=== PATIENT | male | born 1955 | race Hispanic/Latino ===

== ENCOUNTER 2017-05-30 17:51 | Inpatient (IN) | payer BC ==
[2017-05-30 18:12] LABS: BASO # 0.1 K/uL (0.0-0.2); BASO % 0.7 % (0.0-2.0); EOS # 0.3 K/uL (0.0-0.7); EOS % 3.3 % (0.0-4.0); HEMOGLOBIN 15.6 g/dL (12.0-18.0); LYMPH # 1.9 K/uL (1.0-4.3); LYMPH % 20.2 % (20.0-40.0); MEAN CELL VOLUME 87.6 fL (80.0-94.0); MEAN CORPUSCULAR HEMOGLOBIN 29.9 pg (27.0-31.0); MEAN CORPUSCULAR HGB CONC 34.1 g/dL (33.0-37.0); MEAN PLATELET VOLUME 8.8 fL (7.2-11.7); MONO % 10.7 % (0.0-10.0); NEUT # 6.1 K/uL (1.8-7.0); NEUT % 65.1 % (50.0-75.0); NRBC % 0.1 % (0.0-2.0); RBC 5.22 Mil/uL (4.40-5.90); RED CELL DISTRIBUTION WIDTH 13.2 % (11.5-14.5); WHITE BLOOD COUNT 9.4 K/uL (4.8-10.8)
--- NOTE | 2017-05-30 18:27 | C.PDOC ---
History Of Present Illness 62-year-old male, PMHx includes DVT not on blood thinners, presents to the emergency department feeling short of breath. Patient flew back from [place] yesterday. Denies any chest pain, nausea/vomiting, fevers or cough. Time Seen by Provider: 05/30/17 18:05 Chief Complaint (Nursing): Shortness Of Breath Past Medical History Vital Signs: Last Vital Signs Temp 97.8 F 06/03/17 12:00 Pulse 78 06/03/17 10:00 Resp 12 06/03/17 10:00 BP 128/81 06/03/17 10:00 Pulse Ox 98 06/03/17 13:09 - Medical History PMH: Deep Vein Thrombosis Family History: States: Unknown Family Hx - Social History Hx Alcohol Use: No Hx Substance Use: No - Immunization History Hx Tetanus Toxoid Vaccination: No Hx Influenza Vaccination: No Hx Pneumococcal Vaccination: No Review Of Systems Constitutional: Negative for: Fever, Chills Cardiovascular: Negative for: Chest Pain, Palpitations, Light Headedness Respiratory: Positive for: Shortness of Breath. Negative for: Cough Gastrointestinal: Negative for: Vomiting Musculoskeletal: Negative for: Back Pain Skin: Negative for: Rash Neurological: Negative for: Weakness, Numbness, Headache, Dizziness Physical Exam - Physical Exam Appears: Non-toxic, No Acute Distress Skin: Normal Color, Warm, Dry, No Rash Head: Normacephalic Eye(s): bilateral: PERRL Nose: Normal, No Flaring Oral Mucosa: Moist Lips: Normal Appearing Neck: Normal ROM Chest: Symmetrical Cardiovascular: Rhythm Regular (Tachycardic), No Murmur Respiratory: No Decreased Breath Sounds, No Accessory Muscle Use, No Rales, No Rhonchi, No Wheezing, Other (Tachypneic) Extremity: Normal ROM, No Deformity, Swelling (right lower extremity) Pulses: Left Dorsalis Pedis: Normal, Right Dorsalis Pedis: Normal Neurological/Psych: Oriented x3, Normal Speech ED Course And Treatment - Laboratory Results Result Diagrams: 06/03/17 05:50 06/03/17 05:57 O2 Sat by Pulse Oximetry: 98 (RA) Pulse Ox Interpretation: Normal - CT Scan/US CTA chest Other Rad Studies (CT/US): Read By Radiologist, Radiology Report Reviewed CT/US Interpretation: EXAM: CT Angiography Chest With Intravenous Contrast. EXAM DATE/TIME: Exam ordered 05/30/2017 6:33 PM. CLINICAL HISTORY: 62 years old, male; Signs and symptoms; Shortness of breath; Additional info: SOB elevated dimer. h/o of dvt. TECHNIQUE: Axial computed tomographic angiography images of the chest with intravenous contrast using. pulmonary embolism protocol. All CT scans at this facility use one or more dose reduction. techniques, viz.: automated exposure control; ma/kV adjustment per patient size (including targeted. exams where dose is matched to indication; i.e. head); or iterative reconstruction technique. MIP reconstructed images were created and reviewed. Coronal and sagittal reformatted images were created and reviewed. CONTRAST: 100 mL of [id number] administered intravenously. COMPARISON: No relevant prior studies available. FINDINGS: Pulmonary arteries: Clot is noted in the right main pulmonary artery extending into first and second. generation branches of the upper lobe division and first, second and third generation divisions of the. branches serving the right middle lobe right lower lobe. On the left , clot in the left main pulmonary. artery and extends into first, second and third generation branches of the left upper lobe pulmonary. artery branch, first and second generation branches of the division serving the lingula and first,. second and third generation branches of the division serving the left lower lobe. There is a saddle. embolus. Aorta: No acute findings. No thoracic aortic aneurysm. Inferior vena cava: There is no reflux of contrast into the inferior vena cava. Lungs: Mosaic perfusion abnormality is noted in both lungs .there is a very small hiatal hernia. Pleural space: Unremarkable. No significant effusion. No pneumothorax. Heart: The right ventricular left ventricular ratio equals 1.6. No significant pericardial effusion. Bones/joints: Degenerative changes are noted of the dorsal spine. No acute fracture. No. dislocation. Soft tissues: Unremarkable. Lymph nodes: Unremarkable. No enlarged lymph nodes. IMPRESSION: 1. Acute pulmonary embolism with large clot burden. 2. Elevated RV/LV ratio indicating right ventricular strain. 3. Small hiatal hernia. 4. Mosaic perfusion abnormality. May be related to intrapulmonary shunting secondary to thrombosis. Thank you for allowing us to participate in the care of your patient. Dictated and Authenticated by: Madison Navarro MD. 05/30/2017 7:47 PM Eastern Time ([place] & [place] Critical Care Time - Critical Care Note Total Time (in mins): 60 Documented critical care: time excludes all time spent performing seperately billable procedures. Medical Decision Making Medical Decision Makin:22 - Discussed case with ICU Dr. Malcolm De Santiago. Patient has a submassive PE, discussed options for low dose, high dose and IV TPA. Information about low dose TPA was discussed with the patient, went through risks and benefits and at this time patient is declining TPA. 20:40- After beside discussion with Dr. Malcolm De Santiago patient consents to TPA Disposition - Disposition Disposition: HOSPITALIZED Disposition Time: 08:00 Condition: CRITICAL - Clinical Impression Clinical Impression: Pulmonary embolism - Scribe Statement The provider has reviewed the documentation as recorded by the Scribe (Alan Worley) All medical record entries made by the Scribe were at my direction and personally dictated by me. I have reviewed the chart and agree that the record accurately reflects my personal performance of the history, physical exam, medical decision making, and the department course for this patient. I have also personally directed, reviewed, and agree with the discharge instructions and disposition. Decision To Admit - Pt Status Changed To: Hospital Disposition Of: Inpatient - Admit Certification Admit to Inpatient:: After my assessment, the patient will require hospitalization for at least two midnights. This is because of the severity of symptoms shown, intensity of services needed, and/or the medical risk in this patient being treated as an outpatient. - InPatient: Physician Admission Certification: I certify that this patient requires 2 or more midnights of care for the following reason:: large pe - . Bed Request Type: ICU Admitting Physician: Daniel Sloan Patient Diagnosis: Pulmonary embolism
[2017-05-30 18:28] LABS: INR 1.1; PROTHROMBIN TIME 12.5 SECONDS (9.7-12.2)
[2017-05-30 18:30] LABS: ALB/GLOB RATIO 1.1 (1.0-2.1); ALBUMIN 4.2 g/dL (3.5-5.0); ALT/SGPT 36 U/L (21-72); AST/SGOT 30 U/L (17-59); BLOOD UREA NITROGEN 20 mg/dL (9-20); CALCIUM 8.6 mg/dl (8.6-10.4); GFR AFRICAN-AMERICAN > 60; GFR NON-AFRICAN AMERICAN > 60
[2017-05-30 18:49] LABS: B-TYPE NATRIURETIC PEPTIDE 605 pg/mL (0-900)
[2017-05-30] MEDS ORDERED: Iodixanol 320 MG/ML 100 ML BOTTLE IV ONE (18:54)
[2017-05-30] MEDS ORDERED: Heparin25000 units/250ml 1/2NS 25,000 UNITS/250 ML BAG IV PRN (18:59)
--- NOTE | 2017-05-30 19:47 | CT ---
EXAM: CT Angiography Chest With Intravenous Contrast EXAM DATE/TIME: Exam ordered 05/30/2017 6:33 PM CLINICAL HISTORY: 62 years old, male; Signs and symptoms; Shortness of breath; Additional info: SOB elevated dimer h/o of dvt TECHNIQUE: Axial computed tomographic angiography images of the chest with intravenous contrast using pulmonary embolism protocol. All CT scans at this facility use one or more dose reduction techniques, viz.: automated exposure control; ma/kV adjustment per patient size (including targeted exams where dose is matched to indication; i.e. head); or iterative reconstruction technique. MIP reconstructed images were created and reviewed. Coronal and sagittal reformatted images were created and reviewed. CONTRAST: 100 mL of [id number] administered intravenously. COMPARISON: No relevant prior studies available. FINDINGS: Pulmonary arteries: Clot is noted in the right main pulmonary artery extending into first and second generation branches of the upper lobe division and first, second and third generation divisions of the branches serving the right middle lobe right lower lobe. On the left , clot in the left main pulmonary artery and extends into first, second and third generation branches of the left upper lobe pulmonary artery branch, first and second generation branches of the division serving the lingula and first, second and third generation branches of the division serving the left lower lobe. There is a saddle embolus. Aorta: No acute findings. No thoracic aortic aneurysm. Inferior vena cava: There is no reflux of contrast into the inferior vena cava. Lungs: Mosaic perfusion abnormality is noted in both lungs .there is a very small hiatal hernia. Pleural space: Unremarkable. No significant effusion. No pneumothorax. Heart: The right ventricular left ventricular ratio equals 1.6. No significant pericardial effusion. Bones/joints: Degenerative changes are noted of the dorsal spine. No acute fracture. No dislocation. Soft tissues: Unremarkable. Lymph nodes: Unremarkable. No enlarged lymph nodes. IMPRESSION: 1. Acute pulmonary embolism with large clot burden 2. Elevated RV/LV ratio indicating right ventricular strain 3. Small hiatal hernia 4. Mosaic perfusion abnormality. May be related to intrapulmonary shunting secondary to thrombosis
[2017-05-30 19:56] LABS: URINE BACTERIA RARE (<OCC); URINE BILIRUBIN NEGATIVE (NEGATIVE); URINE BLOOD NEGATIVE (NEGATIVE); URINE CLARITY Clear (Clear); URINE COLOR Straw (YELLOW); URINE GLUCOSE (UA) NORMAL (Normal); URINE LEUKOCYTE ESTERASE NEG Leu/uL (Negative); URINE PROTEIN 1+ mg/dL (NEGATIVE); URINE UROBILINOGEN NORMAL mg/dL (0.2-1.0)
[2017-05-30] MEDS ORDERED: Sodium Chloride 0.9% 1,000 ML IV ONE (20:34)
[2017-05-30 20:44] LABS: ABG ALLEN TEST POS; ARTERIAL BLOOD GAS HCO3 23.7 mmol/L (21-28); ARTERIAL BLOOD GAS HEMOGLOBIN 15.8 g/dL (11.7-17.4); ARTERIAL BLOOD GAS O2 SAT 99.2 % (95-98); ARTERIAL BLOOD GAS PCO2 32 mm/Hg (35-45); ARTERIAL BLOOD GAS PH 7.44 (7.35-7.45); ARTERIAL BLOOD GAS PO2 121 mm/Hg (80-100); ARTERIAL BLOOD GAS TCO2 22.7 mmol/L (22-28)
--- NOTE | 2017-05-30 21:00 | CP.PCM.CON ---
History of Present Illness - History of Present Illness History of Present Illness: 62 y/o male with pmx of LE DVT (taken AC for 3 months) presents to [facility] with progressive SOB worsening upon exerction. Patient recently came back from [place] on flight. Patient notes he does not smoke, works on his feet ( walks ~3 miles whil working). Patient denies any exercise intolerance. Patient denies any family history of clot formation. PMx: DVT (seen at [place]) Psurg hx: denies Allergies: denies Social history: has an active work, denies smoking, denies any illicit drug use family history: reviewed and non-contributary Review of Systems - Review of Systems Review of Systems: see HPI Past Patient History - Past Social History Smoking Status: Never Smoked - PSYCHIATRIC Hx Substance Use: No - SURGICAL HISTORY Hx Surgeries: No - ANESTHESIA Hx Anesthesia: No Meds Allergies/Adverse Reactions: Allergies Allergy/AdvReac Type Severity Reaction Status Date / Time No Known Allergies Allergy Verified 05/30/17 17:58 - Medications Medications: Current Medications Heparin Sodium/Sodium Chloride (Heparin 06137 Units/250ml 1/2 Normal Saline) 25 ,000 units in 250 mls @ 14.696 mls/hr IV .Q17H1M PRN; Protocol; 18 UNITS/KG/HR PRN Reason: ADJUST RATE PER PROTOCOL Last Admin: 05/30/17 19:38 Dose: 14.696 mls/hr Sodium Chloride (Sodium Chloride 0.9%) 1,000 mls @ 1,000 mls/hr IV .Q1H ONE Stop: 05/30/17 21:33 Alteplase, Recombinant 10 mg/ (Sodium Chloride) 100 mls @ 300 mls/hr IV ONCE ONE Stop: 05/30/17 21:19 Sodium Chloride (Sodium Chloride 0.9%) 1,000 mls @ 100 mls/hr IV .Q10H KAVITHA Pantoprazole Sodium (Protonix Inj) 40 mg IVP Q12H KAVITHA Physical Exam - Constitutional Appears: Non-toxic, In Acute Distress - Head Exam Head Exam: ATRAUMATIC, NORMAL INSPECTION, NORMOCEPHALIC - Eye Exam Eye Exam: EOMI - Neck Exam Neck exam: Positive for: Normal Inspection - Respiratory Exam Respiratory Exam: Clear to Auscultation Bilateral, NORMAL BREATHING PATTERN - Cardiovascular Exam Cardiovascular Exam: Tachycardia, +S1, +S2 - GI/Abdominal Exam GI & Abdominal Exam: Normal Bowel Sounds - Extremities Exam Extremities exam: Positive for: normal capillary refill, pedal edema. Negative for: calf tenderness, joint swelling - Skin Additional comments: Tanned with sun burn Results - Vital Signs Recent Vital Signs: Last Vital Signs Temp 98.5 F 05/30/17 18:34 Pulse 124 H 05/30/17 18:57 Resp 18 05/30/17 18:57 BP 177/116 H 05/30/17 18:57 Pulse Ox 98 05/30/17 20:45 - Labs Result Diagrams: 05/30/17 18:09 05/30/17 18:09 Labs: Laboratory Results - last 24 hr 05/30/17 05/30/17 05/30/17 18:09 18:09 18:09 WBC 9.4 RBC 5.22 Hgb 15.6 Hct 45.7 MCV 87.6 MCH 29.9 MCHC 34.1 RDW 13.2 Plt Count 230 MPV 8.8 Neut % (Auto) 65.1 Lymph % (Auto) 20.2 [place] % (Auto) 10.7 H Eos % (Auto) 3.3 Baso % (Auto) 0.7 Neut # (Auto) 6.1 Lymph # (Auto) 1.9 [place] # (Auto) 1.0 H Eos # (Auto) 0.3 Baso # (Auto) 0.1 PT 12.5 H INR 1.1 APTT 27 D-Dimer, Quantitative 4358 H Puncture Site pCO2 pO2 HCO3 ABG pH ABG Total CO2 ABG O2 Saturation ABG Base Excess ABG Hemoglobin ABG Carboxyhemoglobin POC ABG HHb (Measured) ABG Methemoglobin Morales Test A-a O2 Difference Respiratory Index Hgb O2 Saturation Liter Flow FiO2 Sodium 142 Potassium 3.8 Chloride 103 Carbon Dioxide 24 Anion Gap 19 BUN 20 Creatinine 1.1 Est GFR ( Amer) > 60 Est GFR (Non-Af Amer) > 60 Random Glucose 103 Calcium 8.6 Total Bilirubin 0.6 AST 30 ALT 36 Alkaline Phosphatase 93 Troponin I 0.1620 H* NT-Pro-B Natriuret Pep 605 Total Protein 7.8 Albumin 4.2 Globulin 3.7 Albumin/Globulin Ratio 1.1 Urine Color Urine Clarity Urine pH Ur Specific [place] Urine Protein Urine Glucose (UA) Urine Ketones Urine Blood Urine Nitrate Urine Bilirubin Urine Urobilinogen Ur Leukocyte Esterase Urine WBC (Auto) Urine RBC (Auto) Urine Bacteria 05/30/17 05/30/17 19:39 20:40 WBC RBC Hgb Hct MCV MCH MCHC RDW Plt Count MPV Neut % (Auto) Lymph % (Auto) [place] % (Auto) Eos % (Auto) Baso % (Auto) Neut # (Auto) Lymph # (Auto) [place] # (Auto) Eos # (Auto) Baso # (Auto) PT INR APTT D-Dimer, Quantitative Puncture Site Rra pCO2 32 L pO2 121 H HCO3 23.7 ABG pH 7.44 ABG Total CO2 22.7 ABG O2 Saturation 99.2 H ABG Base Excess -1.5 ABG Hemoglobin 15.8 ABG Carboxyhemoglobin 1.3 POC ABG HHb (Measured) 0.8 ABG Methemoglobin 1.3 [place]ales Test Pos A-a O2 Difference 267.0 Respiratory Index 2.2 Hgb O2 Saturation 96.5 Liter Flow 10.0 FiO2 60.0 Sodium Potassium Chloride Carbon Dioxide Anion Gap BUN Creatinine Est GFR ( Amer) Est GFR (Non-Af Amer) Random Glucose Calcium Total Bilirubin AST ALT Alkaline Phosphatase Troponin I NT-Pro-B Natriuret Pep Total Protein Albumin Globulin Albumin/Globulin Ratio Urine Color Straw Urine Clarity Clear Urine pH 5.0 Ur Specific [place] 1.030 Urine Protein 1+ H Urine Glucose (UA) Normal Urine Ketones Negative Urine Blood Negative Urine Nitrate Negative Urine Bilirubin Negative Urine Urobilinogen Normal Ur Leukocyte Esterase Neg Urine WBC (Auto) 1 Urine RBC (Auto) 2 Urine Bacteria Rare - EKG Data Rate: Tachycardia Assessment & Plan - Assessment and Plan (Free Text) Assessment: Acute on chronic PE: multiple PE on both pulmonary arteries causing right heart strain c/w increase in trop and increase in pro-BNP. I offered full dose TPA ( clot breaker) and patient refused after knowing the risks and benefits. I had offered a low dose TPA ~50 mg and patient refused knowing the risks and benefits of possible ICH. I then offered patient the lowest dose of TPA (10 mg) Patient was informed that the risks of TPA as the same; however the probability of occuring is very low due to the amount given. -Hypoxic respiratory failure: with large A-a gradient, continue 100% NRB -check LE dopplers and offer vascular eval for retrievable IV filter -Patient denies any history of ulcers, denies any history bleeding, denies any recent surgery(neurological or general surgery), denies any history of retinal surgery or h/o retinal hemorrhage. -Risks benefits and alternatives explained. Patient was informed that PE can cause low BP, can cause respiratory failure leading to intubation and possible cardiac arrest/stand still. Patient verbalized understanding. Patient's was also at bedside during above management and verbalized understanding. Cc time 45 minutes including time spent on discussing risks, benefits and alternatives. -Patient also signed consent for possible blood transfusion (if indicated) -nursing and ER physician informed of above management. - Date & Time Date: 05/30/17 Time: 21:13
[2017-05-30] MEDS ORDERED: Labetalol 25mg/5ml Syringe IVP STA (21:23)
[2017-05-30] MEDS ORDERED: Labetalol 25mg/5ml Syringe ONE (21:32)
--- NOTE | 2017-05-30 21:32 | CP.PCM.HP ---
<Nova BarreraCarlos - Last Filed: 05/30/17 23:27> History of Present Illness - History of Present Illness History of Present Illness: CC: Shortness of breath HPI: 62 year old male with PMHx of L DVT in 2013 presents to the ED today for shortness of breath. 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 This has never happened to him in the past. Patient works out regularly and has not been having any shortness of breath during exercise. Patient sleeps slightly elevated at night, but only uses one pillow. Patient has had no chest pain or leg pain, but his noticed that his right leg has been slightly swollen for the past month. Patient says his leg swelling comes and goes and he attributed it to being on his feet all day at work. Yesterday, patient flew back from vacation in [place]. He had no pain or trouble breathing during or after the flight. Today patient was cleaning his bathroom with some chemicals and started to feel dizzy like the room was spinning. He also started to feel very short of breath. He walked upstairs from the bathroom to tell his and sat down to try to calm his breathing. His called 911 and by the time EMS arrived, patient said he felt his breathing had improved. Patient denies being sick recently. Patient has had no trauma. Patient denies any chest pain, abdominal pain, nausea, vomiting, constipation, or diarrhea. 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 absent: Chest Pain, Palpitations - Respiratory Respiratory: Dyspnea, Dyspnea on Exertion. absent: Wheezing, Stridor - Gastrointestinal Gastrointestinal: absent: Abdominal Pain, Constipation, Diarrhea, Melena, Nausea , Vomiting - Musculoskeletal Musculoskeletal: absent: Muscle Weakness, Numbness, Tingling - Integumentary Integumentary: Swelling. absent: Rash - Hematologic/Lymphatic Hematologic: absent: Easy Bleeding, Easy Bruising Past Patient History - Past Social History Smoking Status: Never Smoked - PSYCHIATRIC Hx Substance Use: No - SURGICAL HISTORY Hx Surgeries: No - ANESTHESIA Hx Anesthesia: No Meds Allergies/Adverse Reactions: Allergies Allergy/AdvReac Type Severity Reaction Status Date / Time No Known Allergies Allergy Verified 05/30/17 17:58 Physical Exam - Constitutional Appears: Non-toxic, No Acute Distress - Head Exam Head Exam: ATRAUMATIC, NORMAL INSPECTION, NORMOCEPHALIC - Eye Exam Eye Exam: EOMI, Normal appearance - ENT Exam ENT Exam: Mucous Membranes Moist - Respiratory Exam Respiratory Exam: Clear to Auscultation Bilateral. absent: Rales, Rhonchi, Wheezes, Stridor - Cardiovascular Exam Cardiovascular Exam: Tachycardia, REGULAR RHYTHM, +S1, +S2 - GI/Abdominal Exam GI & Abdominal Exam: Normal Bowel Sounds, Soft. absent: Distended, Firm, Tenderness - Extremities Exam Extremities exam: Positive for: pedal edema. Negative for: tenderness Additional comments: R LE edema - Back Exam Back exam: NORMAL INSPECTION - Neurological Exam Neurological exam: Alert, Oriented x3 - Psychiatric Exam Psychiatric exam: Normal Affect, Normal Mood - Skin Skin Exam: Intact, Normal Color, Warm Additional comments: sunburn with peeling skin on chest Results - Vital Signs Recent Vital Signs: Last Vital Signs Temp 98.5 F 05/30/17 18:34 Pulse 124 H 05/30/17 18:57 Resp 18 18 18:57 BP 177/116 H 05/30/17 18:57 Pulse Ox 98 05/30/17 20:45 - Labs Result Diagrams: 05/30/17 18:09 05/30/17 18:09 Labs: Laboratory Results - last 24 hr 05/30/171818 18 18:09 18:09 18:09 WBC 9.4 RBC 5.22 Hgb 15.6 Hct 45.7 MCV 87.6 MCH 29.9 MCHC 34.1 RDW 13.2 Plt Count 230 MPV 8.8 Neut % (Auto) 65.1 Lymph % (Auto) 20.2 [place] % (Auto) 10.7 H Eos % (Auto) 3.3 Baso % (Auto) 0.7 Neut # (Auto) 6.1 Lymph # (Auto) 1.9 [place] # (Auto) 1.0 H Eos # (Auto) 0.3 Baso # (Auto) 0.1 PT 12.5 H INR 1.1 APTT 27 D-Dimer, Quantitative 4358 H Puncture Site pCO2 pO2 HCO3 ABG pH ABG Total CO2 ABG O2 Saturation ABG Base Excess ABG Hemoglobin ABG Carboxyhemoglobin POC ABG HHb (Measured) ABG Methemoglobin Morales Test A-a O2 Difference Respiratory Index Hgb O2 Saturation Liter Flow FiO2 Sodium 142 Potassium 3.8 Chloride 103 Carbon Dioxide 24 Anion Gap 19 BUN 20 Creatinine 1.1 Est GFR ( Amer) > 60 Est GFR (Non-Af Amer) > 60 Random Glucose 103 Calcium 8.6 Total Bilirubin 0.6 AST 30 ALT 36 Alkaline Phosphatase 93 Troponin I 0.1620 H* NT-Pro-B Natriuret Pep 605 Total Protein 7.8 Albumin 4.2 Globulin 3.7 Albumin/Globulin Ratio 1.1 Urine Color Urine Clarity Urine pH Ur Specific [place] Urine Protein Urine Glucose (UA) Urine Ketones Urine Blood Urine Nitrate Urine Bilirubin Urine Urobilinogen Ur Leukocyte Esterase Urine WBC (Auto) Urine RBC (Auto) Urine Bacteria Blood Type 05/30/17 05/30/17 05/30/17 19:39 20:40 20:40 WBC RBC Hgb Hct MCV MCH MCHC RDW Plt Count MPV Neut % (Auto) Lymph % (Auto) [place] % (Auto) Eos % (Auto) Baso % (Auto) Neut # (Auto) Lymph # (Auto) [place] # (Auto) Eos # (Auto) Baso # (Auto) PT INR APTT D-Dimer, Quantitative Puncture Site Rra pCO2 32 L pO2 121 H HCO3 23.7 ABG pH 7.44 ABG Total CO2 22.7 ABG O2 Saturation 99.2 H ABG Base Excess -1.5 ABG Hemoglobin 15.8 ABG Carboxyhemoglobin 1.3 POC ABG HHb (Measured) 0.8 ABG Methemoglobin 1.3 Morales Test Pos A-a O2 Difference 267.0 Respiratory Index 2.2 Hgb O2 Saturation 96.5 Liter Flow 10.0 FiO2 60.0 Sodium Potassium Chloride Carbon Dioxide Anion Gap BUN Creatinine Est GFR ( Amer) Est GFR (Non-Af Amer) Random Glucose Calcium Total Bilirubin AST ALT Alkaline Phosphatase Troponin I NT-Pro-B Natriuret Pep Total Protein Albumin Globulin Albumin/Globulin Ratio Urine Color Straw Urine Clarity Clear Urine pH 5.0 Ur Specific [place] 1.030 Urine Protein 1+ H Urine Glucose (UA) Normal Urine Ketones Negative Urine Blood Negative Urine Nitrate Negative Urine Bilirubin Negative Urine Urobilinogen Normal Ur Leukocyte Esterase Neg Urine WBC (Auto) 1 Urine RBC (Auto) 2 Urine Bacteria Rare Blood Type AB POSITIVE Assessment & Plan - Assessment and Plan (Free Text) Assessment: 1. Acute on Chronic PE -admit to ICU -D-dimer 4358 -CTA: acute pulmonary embolism with large clot burder, elevated RV/LV ratio indicating right ventricular strain, small hiatal hernia, mosaic perfusion abnormality, may be related to intrapulmonary shunting secondary to thrombosis. -f/u LE dopplers -f/u Protein C, S, and factor V leiden -coags: PT 12.5, INR 1.1, PTT 27 -low dose TPA 10mg given (patient refused higher does) -Heparin drip started in ED 2. Hypoxic Respiratory failure with large A-a gradient -100% nonrebreather -ABG: pH 7.44, pCO2 32, p02 121, HCO3 23.7 3. NSTEMI -Trop I .1620 -EKG sinus tach at 120bpm -f/u ECHO 4. Prophylaxis Heparin drip Protonix 40mg ivp q12h <Daniel Sloan - Last Filed: 05/31/17 06:29> Results - Vital Signs Recent Vital Signs: Last Vital Signs Temp 98.6 F 05/30/17 22:25 Pulse 92 H 05/31/17 05:00 Resp 17 05/31/17 05:00 BP 127/88 05/31/17 04:52 Pulse Ox 95 05/31/17 05:00 - Labs Result Diagrams: 05/30/17 18:09 05/30/17 18:09 Labs: Laboratory Results - last 24 hr 05/30/17 05/30/17 05/30/17 18:09 18:09 18:09 WBC 9.4 RBC 5.22 Hgb 15.6 Hct 45.7 MCV 87.6 MCH 29.9 MCHC 34.1 RDW 13.2 Plt Count 230 MPV 8.8 Neut % (Auto) 65.1 Lymph % (Auto) 20.2 [place] % (Auto) 10.7 H Eos % (Auto) 3.3 Baso % (Auto) 0.7 Neut # (Auto) 6.1 Lymph # (Auto) 1.9 [place] # (Auto) 1.0 H Eos # (Auto) 0.3 Baso # (Auto) 0.1 PT 12.5 H INR 1.1 APTT 27 D-Dimer, Quantitative 4358 H Puncture Site pCO2 pO2 HCO3 ABG pH ABG Total CO2 ABG O2 Saturation ABG Base Excess ABG Hemoglobin ABG Carboxyhemoglobin POC ABG HHb (Measured) ABG Methemoglobin [place]ales Test A-a O2 Difference Respiratory Index Hgb O2 Saturation Liter Flow FiO2 Sodium 142 Potassium 3.8 Chloride 103 Carbon Dioxide 24 Anion Gap 19 BUN 20 Creatinine 1.1 Est GFR ( Amer) > 60 Est GFR (Non-Af Amer) > 60 POC Glucose (mg/dL) Random Glucose 103 Calcium 8.6 Total Bilirubin 0.6 AST 30 ALT 36 Alkaline Phosphatase 93 Troponin I 0.1620 H* NT-Pro-B Natriuret Pep 605 Total Protein 7.8 Albumin 4.2 Globulin 3.7 Albumin/Globulin Ratio 1.1 Urine Color Urine Clarity Urine pH Ur Specific [place] Urine Protein Urine Glucose (UA) Urine Ketones Urine Blood Urine Nitrate Urine Bilirubin Urine Urobilinogen Ur Leukocyte Esterase Urine WBC (Auto) Urine RBC (Auto) Urine Bacteria Urine Opiates Screen Urine Methadone Screen Ur Barbiturates Screen Ur Phencyclidine Scrn Ur Amphetamines Screen U Benzodiazepines Scrn U Oth Cocaine Metabols U Cannabinoids Screen Blood Type Antibody Screen 05/30/17 05/30/17 05/30/17 19:39 20:40 20:40 WBC RBC Hgb Hct MCV MCH MCHC RDW Plt Count MPV Neut % (Auto) Lymph % (Auto) [place] % (Auto) Eos % (Auto) Baso % (Auto) Neut # (Auto) Lymph # (Auto) [place] # (Auto) Eos # (Auto) Baso # (Auto) PT INR APTT D-Dimer, Quantitative Puncture Site Rra pCO2 32 L pO2 121 H HCO3 23.7 ABG pH 7.44 ABG Total CO2 22.7 ABG O2 Saturation 99.2 H ABG Base Excess -1.5 ABG Hemoglobin 15.8 ABG Carboxyhemoglobin 1.3 POC ABG HHb (Measured) 0.8 ABG Methemoglobin 1.3 [place]ales Test Pos A-a O2 Difference 267.0 Respiratory Index 2.2 Hgb O2 Saturation 96.5 Liter Flow 10.0 FiO2 60.0 Sodium Potassium Chloride Carbon Dioxide Anion Gap BUN Creatinine Est GFR ( Amer) Est GFR (Non-Af Amer) POC Glucose (mg/dL) Random Glucose Calcium Total Bilirubin AST ALT Alkaline Phosphatase Troponin I NT-Pro-B Natriuret Pep Total Protein Albumin Globulin Albumin/Globulin Ratio Urine Color Straw Urine Clarity Clear Urine pH 5.0 Ur Specific [place] 1.030 Urine Protein 1+ H Urine Glucose (UA) Normal Urine Ketones Negative Urine Blood Negative Urine Nitrate Negative Urine Bilirubin Negative Urine Urobilinogen Normal Ur Leukocyte Esterase Neg Urine WBC (Auto) 1 Urine RBC (Auto) 2 Urine Bacteria Rare Urine Opiates Screen Urine Methadone Screen Ur Barbiturates Screen Ur Phencyclidine Scrn Ur Amphetamines Screen U Benzodiazepines Scrn U Oth Cocaine Metabols U Cannabinoids Screen Blood Type AB POSITIVE Antibody Screen Negative 05/30/17 05/30/17 05/30/17 21:48 22:46 23:42 WBC RBC Hgb Hct MCV MCH MCHC RDW Plt Count MPV Neut % (Auto) Lymph % (Auto) [place] % (Auto) Eos % (Auto) Baso % (Auto) Neut # (Auto) Lymph # (Auto) [place] # (Auto) Eos # (Auto) Baso # (Auto) PT INR APTT D-Dimer, Quantitative Puncture Site pCO2 pO2 HCO3 ABG pH ABG Total CO2 ABG O2 Saturation ABG Base Excess ABG Hemoglobin ABG Carboxyhemoglobin POC ABG HHb (Measured) ABG Methemoglobin [place] Test A-a O2 Difference Respiratory Index Hgb O2 Saturation Liter Flow FiO2 Sodium Potassium Chloride Carbon Dioxide Anion Gap BUN Creatinine Est GFR ( Amer) Est GFR (Non-Af Amer) POC Glucose (mg/dL) 115 H 110 Random Glucose Calcium Total Bilirubin AST ALT Alkaline Phosphatase Troponin I NT-Pro-B Natriuret Pep Total Protein Albumin Globulin Albumin/Globulin Ratio Urine Color Urine Clarity Urine pH Ur Specific [place] Urine Protein Urine Glucose (UA) Urine Ketones Urine Blood Urine Nitrate Urine Bilirubin Urine Urobilinogen Ur Leukocyte Esterase Urine WBC (Auto) Urine RBC (Auto) Urine Bacteria Urine Opiates Screen Negative Urine Methadone Screen Negative Ur Barbiturates Screen Negative Ur Phencyclidine Scrn Negative Ur Amphetamines Screen Negative U Benzodiazepines Scrn Negative U Oth Cocaine Metabols Negative U Cannabinoids Screen Negative Blood Type Antibody Screen 05/31/17 01:00 WBC RBC Hgb Hct MCV MCH MCHC RDW Plt Count MPV Neut % (Auto) Lymph % (Auto) [place] % (Auto) Eos % (Auto) Baso % (Auto) Neut # (Auto) Lymph # (Auto) [place] # (Auto) Eos # (Auto) Baso # (Auto) PT INR APTT 26 D-Dimer, Quantitative Puncture Site pCO2 pO2 HCO3 ABG pH ABG Total CO2 ABG O2 Saturation ABG Base Excess ABG Hemoglobin ABG Carboxyhemoglobin POC ABG HHb (Measured) ABG Methemoglobin [place] Test A-a O2 Difference Respiratory Index Hgb O2 Saturation Liter Flow FiO2 Sodium Potassium Chloride Carbon Dioxide Anion Gap BUN Creatinine Est GFR ( Amer) Est GFR (Non-Af Amer) POC Glucose (mg/dL) Random Glucose Calcium Total Bilirubin AST ALT Alkaline Phosphatase Troponin I NT-Pro-B Natriuret Pep Total Protein Albumin Globulin Albumin/Globulin Ratio Urine Color Urine Clarity Urine pH Ur Specific [place] Urine Protein Urine Glucose (UA) Urine Ketones Urine Blood Urine Nitrate Urine Bilirubin Urine Urobilinogen Ur Leukocyte Esterase Urine WBC (Auto) Urine RBC (Auto) Urine Bacteria Urine Opiates Screen Urine Methadone Screen Ur Barbiturates Screen Ur Phencyclidine Scrn Ur Amphetamines Screen U Benzodiazepines Scrn U Oth Cocaine Metabols U Cannabinoids Screen Blood Type Antibody Screen Assessment & Plan - Date & Time Date: 05/31/17 (I have seen and examined the patient. I agree with the findings and plan of care as documented by Dr. Barrera. Patient with acute Saddle embolism. NSTEMI. Received TPA. Admit to ICU for further management. Oxygen as needed. ROMIx3 with EKG. Investigate hypercoagulable states. Monitor for acute changes.) Time: 06:28 Attending/Attestation - Attestation I have personally seen and examined this patient.: Yes I have fully participated in the care of the patient.: Yes I have reviewed all pertinent clinical information: Yes
[2017-05-30 22:09] LABS: BARBITURATES, UR NEGATIVE (NEGATIVE); BENZODIAZEPINES, UR NEGATIVE (NEGATIVE); OPIATES, UR NEGATIVE (NEGATIVE); PHENCYCLIDINE, UR NEGATIVE (NEGATIVE)
[2017-05-30] MEDS: Sodium Chloride 0.9% 1,000 ML IV SCH (22:34)
[2017-05-31] MEDS: Heparin25000 units/250ml 1/2NS 25,000 UNITS/250 ML BAG IV PRN ×2 (01:47→15:02)
[2017-05-31] MEDS: Sodium Chloride 0.9% 1,000 ML IV SCH ×3 (06:09→18:24)
[2017-05-31 06:31] LABS: BASO # 0.1 K/uL (0.0-0.2); BASO % 0.7 % (0.0-2.0); EOS # 0.1 K/uL (0.0-0.7); EOS % 0.8 % (0.0-4.0); HEMOGLOBIN 13.8 g/dL (12.0-18.0); LYMPH % 17.6 % (20.0-40.0); MEAN CELL VOLUME 87.5 fL (80.0-94.0); MEAN CORPUSCULAR HEMOGLOBIN 29.4 pg (27.0-31.0); MEAN CORPUSCULAR HGB CONC 33.6 g/dL (33.0-37.0); MEAN PLATELET VOLUME 8.4 fL (7.2-11.7); MONO # 0.9 K/uL (0.0-0.8); MONO % 8.2 % (0.0-10.0); NEUT # 8.1 K/uL (1.8-7.0); NEUT % 72.7 % (50.0-75.0); RBC 4.7 Mil/uL (4.40-5.90); RED CELL DISTRIBUTION WIDTH 13.4 % (11.5-14.5); WHITE BLOOD COUNT 11.2 K/uL (4.8-10.8)
[2017-05-31 06:43] LABS: ALBUMIN 3.4 g/dL (3.5-5.0); ALT/SGPT 34 U/L (21-72); AST/SGOT 34 U/L (17-59); BLOOD UREA NITROGEN 20 mg/dL (9-20); CALCIUM 8.7 mg/dl (8.6-10.4); GFR AFRICAN-AMERICAN > 60; GFR NON-AFRICAN AMERICAN > 60
--- NOTE | 2017-05-31 08:34 | RAD ---
HISTORY: Shortness of breath COMPARISON: No prior. FINDINGS: LUNGS: The lungs are clear. PLEURA: No significant pleural effusion identified, no pneumothorax apparent. CARDIOVASCULAR: There is mild cardiomegaly. OSSEOUS STRUCTURES: No significant abnormalities. VISUALIZED UPPER ABDOMEN: Normal. OTHER FINDINGS: None. IMPRESSION: No active pulmonary disease.
--- NOTE | 2017-05-31 08:54 | CP.PCM.PN ---
Subjective - Date & Time of Evaluation Date of Evaluation: 05/31/17 Time of Evaluation: 08:15 - Subjective Subjective: Patient currently AAO x 3, calm and not in acute distress. He reports breathing is far better now. He has not tried to move around. Yesterday he was found to have an large saddle PE. He was acutely short of breath, positive troponins, and also reporting palpitations. He had low SpO2 coming in. He was seen by ICU team and it was recommended that he have larger doses of TPA , however the patient after prolonged discussion with ICU did not want this and only had 10 of TPA given. He remains on a heparin ggt at this time. He is pending an echo and venous doppler at this time. On the telemonitor he did have some tachycardia when he came in. He also had low SpO2. Currently his telemetry is 93 to 95 HR and sinus. The SpO2 in the 95% range with nasal cannula. Objective - Vital Signs/Intake and Output Vital Signs (last 24 hours): Temp Pulse Resp BP Pulse Ox 98.6 F 93 H 11 L 145/95 H 94 L 05/30/17 22:25 05/31/17 08:22 05/31/17 08:22 05/31/17 08:22 05/31/17 08:22 Intake and Output: 05/31/17 05/31/17 06:59 18:59 Intake Total 1013.5 597.4 Output Total 700 200 Balance 313.5 397.4 - Medications Medications: Current Medications Sodium Chloride (Sodium Chloride 0.9%) 1,000 mls @ 100 mls/hr IV .Q10H [facility] Last Admin: 05/31/17 08:22 Dose: 100 mls/hr Heparin Sodium/Sodium Chloride (Heparin 17604 Units/250ml 1/2 Normal Saline) 25 ,000 units in 250 mls @ 18.711 mls/hr IV .[id number] PRN; Protocol; 22 UNITS/KG/HR PRN Reason: ADJUST RATE PER PROTOCOL Last Admin: 05/31/17 01:47 Dose: 22 units/kg/hr, 18.711 mls/hr Pantoprazole Sodium (Protonix Inj) 40 mg IVP Q12H [facility] Last Admin: 05/30/17 21:15 Dose: 40 mg - Labs Labs: 05/31/17 06:21 05/31/17 06:21 PT 12.5 SECONDS (9.7-12.2) H 05/30/17 18:09 INR 1.1 05/30/17 18:09 APTT 77 SECONDS (21-34) H D 05/31/17 06:21 - Constitutional Appears: Non-toxic, No Acute Distress - Head Exam Head Exam: NORMAL INSPECTION, NORMOCEPHALIC - Eye Exam Eye Exam: EOMI, Normal appearance - ENT Exam ENT Exam: Mucous Membranes Moist - Neck Exam Additional comments: Some minimal JVD seen - Respiratory Exam Respiratory Exam: Clear to Ausculation Bilateral, NORMAL BREATHING PATTERN - Cardiovascular Exam Cardiovascular Exam: REGULAR RHYTHM. absent: Diastolic murmur Additional comments: at this time sounds RR. I did not hear any mumurs at this time. - GI/Abdominal Exam GI & Abdominal Exam: absent: Soft, Tenderness, Normal Bowel Sounds - Extremities Exam Extremities Exam: absent: Pedal Edema Additional comments: I did NOT press on the calf area. We don't have dopplers yet. - Neurological Exam Neurological Exam: Alert, Awake, Oriented x3 Neuro motor strength exam: Left Upper Extremity: 5, Right Upper Extremity: 5, Left Lower Extremity: 5, Right Lower Extremity: 5 - Psychiatric Exam Psychiatric exam: Normal Affect, Normal Mood - Skin Skin Exam: Normal Color, Warm Assessment and Plan - Assessment and Plan (Free Text) Assessment: Assessment: 1. Acute on Chronic PE 05/31: Patient overnight did get TPA, however it was a very small dose. The patient did not agree with the recomendations of ICU staff. I spoke with the patient extensively this morning. I also hoa out a picture to help explain to him what was happening. Maybe the patient could benefit from a direct thrombolysis of this clot by interventional cardiology. He remains on a heparin ggt at this time. We are also pedning echo as well D-dimer 4358 CTA: acute pulmonary embolism with large clot burder, elevated RV/LV ratio indicating right ventricular strain, small hiatal hernia, mosaic perfusion abnormality, may be related to intrapulmonary shunting secondary to thrombosis. Pending LE dopplers Pending Protein C, S, and factor V leiden Low dose TPA 10mg given (patient refused higher does) 2. Hypoxic Respiratory failure with large A-a gradient 05/31: On nasal cannula now. SpO2 still on the low 90s side. -ABG: pH 7.44, pCO2 32, p02 121, HCO3 23.7 3. NSTEMI, right heart strain. 05/31: Troponin climbed to 1.57, heparin ggt. Needs cardiology evaluation Trop I .1620 -EKG sinus tach at 120bpm -f/u ECHO 4. Prophylaxis Heparin drip Protonix 40mg ivp q12h
--- NOTE | 2017-05-31 11:33 | CP.CCUPN ---
<Mary Duff - Last Filed: 05/31/17 14:29> CCU Subjective - Physician Review Subjective (Free Text): 05/31/17 11:30 Patient seen and examined at bedside. Per nursing no acute events overnight. Patient states that he is breathing comfortably. Patient s/p Tpa 10mg x 1, currently on heparin drip. Currently offers no complaints. Denies headaches, dizziness, cp, palpitations, sob, abdominal pain, urinary symptoms. CCU Objective - Vital Signs / Intake & Output Vital Signs (Last 4 hours): Vital Signs Pulse Resp BP Pulse Ox 05/31/17 11:22 89 20 142/97 H 92 L 05/31/17 11:15 84 19 92 L 05/31/17 11:00 87 20 93 L 05/31/17 10:52 89 17 154/94 H 92 L 05/31/17 10:45 91 H 21 91 L 05/31/17 10:30 91 H 18 92 L 05/31/17 10:22 95 H 17 141/98 H 93 L 05/31/17 10:15 96 H 22 93 L 05/31/17 10:00 90 19 91 L 05/31/17 09:52 149/89 05/31/17 09:37 154/94 H 05/31/17 09:30 93 H 14 93 L 05/31/17 09:22 98 H 14 154/100 H 93 L 05/31/17 09:15 93 H 16 94 L 05/31/17 09:10 95 H 12 150/109 H 96 05/31/17 09:00 95 H 21 94 L 05/31/17 08:52 97 H 11 L 155/103 H 94 L 05/31/17 08:30 94 H 16 95 05/31/17 08:22 93 H 11 L 145/95 H 94 L 05/31/17 08:00 91 H 18 92 L 05/31/17 07:52 96 H 14 150/92 H 94 L Intake and Output (Last 8hrs): Intake & Output 05/30/17 05/31/17 05/31/17 22:59 06:59 14:59 Intake Total 1013.5 716.1 Output Total 700 200 Balance 313.5 516.1 Weight 81.647 kg 85.049 kg Intake: Intake, IV Amount 893.5 356.1 Right Antecubital 800 300 Rt AC-y port 93.5 56.1 Oral 120 360 Output: Urine 700 200 Urine, Voided 700 200 Other: Voiding Method Urinal # Bowel Movements 0 - Physical Exam Head: Positive for: Atraumatic, Normocephalic Pupils: Positive for: PERRL Extroacular Muscles: Positive for: EOMI Conjunctiva: Positive for: Normal Mouth: Positive for: Moist Mucous Membranes Neck: Positive for: Normal Range of Motion, JVD (mild ) Respiratory/Chest: Positive for: Clear to Auscultation, Good Air Exchange, Other (O2 sats 91-94 on 1L NC). Negative for: Respiratory Distress Cardiovascular: Positive for: Regular Rate and Rhythm, Normal S1, S2 Abdomen: Positive for: Normal Bowel Sounds. Negative for: Tenderness Lower Extremity: Positive for: Edema (Right sided lower extremity pitting edema ), NORMAL PULSES Neurological: Positive for: CN II-XII Intact Skin: Positive for: Warm, Dry, Normal Color Psychiatric: Positive for: Alert, Oriented x 3 - Medications Active Medications: Active Medications Generic Name Dose Route Start Last Admin Trade Name Freq PRN Reason Stop Dose Admin Sodium Chloride 1,000 mls @ 100 mls/hr 05/30/17 21:00 05/31/17 08:22 Sodium Chloride 0.9% IV 100 mls/hr .Q10H KAVITHA Administration Heparin Sodium/Sodium Chloride 25,000 units in 250 mls @ 18.711 mls/hr 01:36 05/31/17 01:47 Heparin 04838 Units/250ml 1/2 Normal Saline IV 22 units/kg/hr .[id number] PRN 18.711 mls/hr ADJUST RATE PER PROTOCOL Administration Protocol 22 UNITS/KG/HR Pantoprazole Sodium 40 mg 05/30/17 21:00 05/31/17 11:24 Protonix Inj IVP 40 mg Q12H KAVITHA Administration - Patient Studies Lab Studies: Lab Studies 05/31/17 05/31/17 05/31/17 Range/Units 06:21 06:21 06:21 WBC 11.2 H (4.8-10.8) K/uL RBC 4.70 (4.40-5.90) Mil/uL Hgb 13.8 (12.0-18.0) g/dL Hct 41.1 (35.0-51.0) % MCV 87.5 (80.0-94.0) fL MCH 29.4 (27.0-31.0) pg MCHC 33.6 (33.0-37.0) g/dL RDW 13.4 (11.5-14.5) % Plt Count 188 (130-400) K/uL MPV 8.4 (7.2-11.7) fL Neut % (Auto) 72.7 (50.0-75.0) % Lymph % (Auto) 17.6 L (20.0-40.0) % Loving % (Auto) 8.2 (0.0-10.0) % Eos % (Auto) 0.8 (0.0-4.0) % Baso % (Auto) 0.7 (0.0-2.0) % Neut # (Auto) 8.1 H (1.8-7.0) K/uL Lymph # (Auto) 2.0 (1.0-4.3) K/uL Loving # (Auto) 0.9 H (0.0-0.8) K/uL Eos # (Auto) 0.1 (0.0-0.7) K/uL Baso # (Auto) 0.1 (0.0-0.2) K/uL PT (9.7-12.2) SECONDS INR APTT 77 H D (21-34) SECONDS D-Dimer, Quantitative (0-243) ng/mlDDU Puncture Site pCO2 (35-45) mm/Hg pO2 (80-100) mm/Hg HCO3 (21-28) mmol/L ABG pH (7.35-7.45) ABG Total CO2 (22-28) mmol/L ABG O2 Saturation (95-98) % ABG Base Excess (-2.0-3.0) mmol/L ABG Hemoglobin (11.7-17.4) g/dL ABG Carboxyhemoglobin (0.5-1.5) % POC ABG HHb (Measured) (0.0-5.0) % ABG Methemoglobin (0.0-3.0) % Morales Test A-a O2 Difference mm/Hg Respiratory Index Hgb O2 Saturation (95.0-98.0) % Liter Flow FiO2 % Sodium 141 (132-148) mmol/L Potassium 4.0 (3.6-5.2) mmol/L Chloride 107 (98-107) mmol/L Carbon Dioxide 24 (22-30) mmol/L Anion Gap 14 (10-20) BUN 20 (9-20) mg/dL Creatinine 0.8 (0.8-1.5) mg/dL Est GFR ( Amer) > 60 Est GFR (Non-Af Amer) > 60 POC Glucose (mg/dL) (65-110) mg/dL Random Glucose 101 (75-110) mg/dL Calcium 8.7 (8.6-10.4) mg/dl Phosphorus 4.1 (2.5-4.5) mg/dL Magnesium 1.9 (1.6-2.3) mg/dL Total Bilirubin 0.7 (0.2-1.3) mg/dL AST 34 (17-59) U/L ALT 34 (21-72) U/L Alkaline Phosphatase 85 (38-126) U/L Troponin I 1.5700 H* (0.00-0.120) ng/mL NT-Pro-B Natriuret Pep (0-900) pg/mL Total Protein 6.9 (6.3-8.3) g/dL Albumin 3.4 L (3.5-5.0) g/dL Globulin 3.4 (2.2-3.9) gm/dL Albumin/Globulin Ratio 1.0 (1.0-2.1) Urine Color (YELLOW) Urine Clarity (Clear) Urine pH (5.0-8.0) Ur Specific [place] (1.003-1.030) Urine Protein (NEGATIVE) mg/dL Urine Glucose (UA) (Normal) mg/dL Urine Ketones (NEGATIVE) mg/dL Urine Blood (NEGATIVE) Urine Nitrate (NEGATIVE) Urine Bilirubin (NEGATIVE) Urine Urobilinogen (0.2-1.0) mg/dL Ur Leukocyte Esterase (Negative) Mariya/uL Urine WBC (Auto) (0-5) /hpf Urine RBC (Auto) (0-3) /hpf Urine Bacteria (<OCC) Urine Opiates Screen (NEGATIVE) Urine Methadone Screen (NEGATIVE) Ur Barbiturates Screen (NEGATIVE) Ur Phencyclidine Scrn (NEGATIVE) Ur Amphetamines Screen (NEGATIVE) U Benzodiazepines Scrn (NEGATIVE) U Oth Cocaine Metabols (NEGATIVE) U Cannabinoids Screen (NEGATIVE) Blood Type Antibody Screen 05/31/17 05/30/17 05/30/17 Range/Units 01:00 23:42 22:46 WBC (4.8-10.8) K/uL RBC (4.40-5.90) Mil/uL Hgb (12.0-18.0) g/dL Hct (35.0-51.0) % MCV (80.0-94.0) fL MCH (27.0-31.0) pg MCHC (33.0-37.0) g/dL RDW (11.5-14.5) % Plt Count (130-400) K/uL MPV (7.2-11.7) fL Neut % (Auto) (50.0-75.0) % Lymph % (Auto) (20.0-40.0) % Loving % (Auto) (0.0-10.0) % Eos % (Auto) (0.0-4.0) % Baso % (Auto) (0.0-2.0) % Neut # (Auto) (1.8-7.0) K/uL Lymph # (Auto) (1.0-4.3) K/uL Loving # (Auto) (0.0-0.8) K/uL Eos # (Auto) (0.0-0.7) K/uL Baso # (Auto) (0.0-0.2) K/uL PT (9.7-12.2) SECONDS INR APTT 26 (21-34) SECONDS D-Dimer, Quantitative (0-243) ng/mlDDU Puncture Site pCO2 (35-45) mm/Hg pO2 (80-100) mm/Hg HCO3 (21-28) mmol/L ABG pH (7.35-7.45) ABG Total CO2 (22-28) mmol/L ABG O2 Saturation (95-98) % ABG Base Excess (-2.0-3.0) mmol/L ABG Hemoglobin (11.7-17.4) g/dL ABG Carboxyhemoglobin (0.5-1.5) % POC ABG HHb (Measured) (0.0-5.0) % ABG Methemoglobin (0.0-3.0) % Morales Test A-a O2 Difference mm/Hg Respiratory Index Hgb O2 Saturation (95.0-98.0) % Liter Flow FiO2 % Sodium (132-148) mmol/L Potassium (3.6-5.2) mmol/L Chloride (98-107) mmol/L Carbon Dioxide (22-30) mmol/L Anion Gap (10-20) BUN (9-20) mg/dL Creatinine (0.8-1.5) mg/dL Est GFR ( Amer) Est GFR (Non-Af Amer) POC Glucose (mg/dL) 110 115 H (65-110) mg/dL Random Glucose (75-110) mg/dL Calcium (8.6-10.4) mg/dl Phosphorus (2.5-4.5) mg/dL Magnesium (1.6-2.3) mg/dL Total Bilirubin (0.2-1.3) mg/dL AST (17-59) U/L ALT (21-72) U/L Alkaline Phosphatase (38-126) U/L Troponin I (0.00-0.120) ng/mL NT-Pro-B Natriuret Pep (0-900) pg/mL Total Protein (6.3-8.3) g/dL Albumin (3.5-5.0) g/dL Globulin (2.2-3.9) gm/dL Albumin/Globulin Ratio (1.0-2.1) Urine Color (YELLOW) Urine Clarity (Clear) Urine pH (5.0-8.0) Ur Specific [place] (1.003-1.030) Urine Protein (NEGATIVE) mg/dL Urine Glucose (UA) (Normal) mg/dL Urine Ketones (NEGATIVE) mg/dL Urine Blood (NEGATIVE) Urine Nitrate (NEGATIVE) Urine Bilirubin (NEGATIVE) Urine Urobilinogen (0.2-1.0) mg/dL Ur Leukocyte Esterase (Negative) Mariya/uL Urine WBC (Auto) (0-5) /hpf Urine RBC (Auto) (0-3) /hpf Urine Bacteria (<OCC) Urine Opiates Screen (NEGATIVE) Urine Methadone Screen (NEGATIVE) Ur Barbiturates Screen (NEGATIVE) Ur Phencyclidine Scrn (NEGATIVE) Ur Amphetamines Screen (NEGATIVE) U Benzodiazepines Scrn (NEGATIVE) U Oth Cocaine Metabols (NEGATIVE) U Cannabinoids Screen (NEGATIVE) Blood Type Antibody Screen 05/30/17 05/30/17 05/30/17 Range/Units 21:48 20:40 20:40 WBC (4.8-10.8) K/uL RBC (4.40-5.90) Mil/uL Hgb (12.0-18.0) g/dL Hct (35.0-51.0) % MCV (80.0-94.0) fL MCH (27.0-31.0) pg MCHC (33.0-37.0) g/dL RDW (11.5-14.5) % Plt Count (130-400) K/uL MPV (7.2-11.7) fL Neut % (Auto) (50.0-75.0) % Lymph % (Auto) (20.0-40.0) % Loving % (Auto) (0.0-10.0) % Eos % (Auto) (0.0-4.0) % Baso % (Auto) (0.0-2.0) % Neut # (Auto) (1.8-7.0) K/uL Lymph # (Auto) (1.0-4.3) K/uL Loving # (Auto) (0.0-0.8) K/uL Eos # (Auto) (0.0-0.7) K/uL Baso # (Auto) (0.0-0.2) K/uL PT (9.7-12.2) SECONDS INR APTT (21-34) SECONDS D-Dimer, Quantitative (0-243) ng/mlDDU Puncture Site Rra pCO2 32 L (35-45) mm/Hg pO2 121 H (80-100) mm/Hg HCO3 23.7 (21-28) mmol/L ABG pH 7.44 (7.35-7.45) ABG Total CO2 22.7 (22-28) mmol/L ABG O2 Saturation 99.2 H (95-98) % ABG Base Excess -1.5 (-2.0-3.0) mmol/L ABG Hemoglobin 15.8 (11.7-17.4) g/dL ABG Carboxyhemoglobin 1.3 (0.5-1.5) % POC ABG HHb (Measured) 0.8 (0.0-5.0) % ABG Methemoglobin 1.3 (0.0-3.0) % Morales Test Pos A-a O2 Difference 267.0 mm/Hg Respiratory Index 2.2 Hgb O2 Saturation 96.5 (95.0-98.0) % Liter Flow 10.0 FiO2 60.0 % Sodium (132-148) mmol/L Potassium (3.6-5.2) mmol/L Chloride (98-107) mmol/L Carbon Dioxide (22-30) mmol/L Anion Gap (10-20) BUN (9-20) mg/dL Creatinine (0.8-1.5) mg/dL Est GFR ( Amer) Est GFR (Non-Af Amer) POC Glucose (mg/dL) (65-110) mg/dL Random Glucose (75-110) mg/dL Calcium (8.6-10.4) mg/dl Phosphorus (2.5-4.5) mg/dL Magnesium (1.6-2.3) mg/dL Total Bilirubin (0.2-1.3) mg/dL AST (17-59) U/L ALT (21-72) U/L Alkaline Phosphatase (38-126) U/L Troponin I (0.00-0.120) ng/mL NT-Pro-B Natriuret Pep (0-900) pg/mL Total Protein (6.3-8.3) g/dL Albumin (3.5-5.0) g/dL Globulin (2.2-3.9) gm/dL Albumin/Globulin Ratio (1.0-2.1) Urine Color (YELLOW) Urine Clarity (Clear) Urine pH (5.0-8.0) Ur Specific [place] (1.003-1.030) Urine Protein (NEGATIVE) mg/dL Urine Glucose (UA) (Normal) mg/dL Urine Ketones (NEGATIVE) mg/dL Urine Blood (NEGATIVE) Urine Nitrate (NEGATIVE) Urine Bilirubin (NEGATIVE) Urine Urobilinogen (0.2-1.0) mg/dL Ur Leukocyte Esterase (Negative) Mariya/uL Urine WBC (Auto) (0-5) /hpf Urine RBC (Auto) (0-3) /hpf Urine Bacteria (<OCC) Urine Opiates Screen Negative (NEGATIVE) Urine Methadone Screen Negative (NEGATIVE) Ur Barbiturates Screen Negative (NEGATIVE) Ur Phencyclidine Scrn Negative (NEGATIVE) Ur Amphetamines Screen Negative (NEGATIVE) U Benzodiazepines Scrn Negative (NEGATIVE) U Oth Cocaine Metabols Negative (NEGATIVE) U Cannabinoids Screen Negative (NEGATIVE) Blood Type AB POSITIVE Antibody Screen Negative 05/30/17 05/30/17 05/30/17 Range/Units 19:39 18:09 18:09 WBC (4.8-10.8) K/uL RBC (4.40-5.90) Mil/uL Hgb (12.0-18.0) g/dL Hct (35.0-51.0) % MCV (80.0-94.0) fL MCH (27.0-31.0) pg MCHC (33.0-37.0) g/dL RDW (11.5-14.5) % Plt Count (130-400) K/uL MPV (7.2-11.7) fL Neut % (Auto) (50.0-75.0) % Lymph % (Auto) (20.0-40.0) % Loving % (Auto) (0.0-10.0) % Eos % (Auto) (0.0-4.0) % Baso % (Auto) (0.0-2.0) % Neut # (Auto) (1.8-7.0) K/uL Lymph # (Auto) (1.0-4.3) K/uL Loving # (Auto) (0.0-0.8) K/uL Eos # (Auto) (0.0-0.7) K/uL Baso # (Auto) (0.0-0.2) K/uL PT 12.5 H (9.7-12.2) SECONDS INR 1.1 APTT 27 (21-34) SECONDS D-Dimer, Quantitative 4358 H (0-243) ng/mlDDU Puncture Site pCO2 (35-45) mm/Hg pO2 (80-100) mm/Hg HCO3 (21-28) mmol/L ABG pH (7.35-7.45) ABG Total CO2 (22-28) mmol/L ABG O2 Saturation (95-98) % ABG Base Excess (-2.0-3.0) mmol/L ABG Hemoglobin (11.7-17.4) g/dL ABG Carboxyhemoglobin (0.5-1.5) % POC ABG HHb (Measured) (0.0-5.0) % ABG Methemoglobin (0.0-3.0) % Morales Test A-a O2 Difference mm/Hg Respiratory Index Hgb O2 Saturation (95.0-98.0) % Liter Flow FiO2 % Sodium 142 (132-148) mmol/L Potassium 3.8 (3.6-5.2) mmol/L Chloride 103 (98-107) mmol/L Carbon Dioxide 24 (22-30) mmol/L Anion Gap 19 (10-20) BUN 20 (9-20) mg/dL Creatinine 1.1 (0.8-1.5) mg/dL Est GFR ( Amer) > 60 Est GFR (Non-Af Amer) > 60 POC Glucose (mg/dL) (65-110) mg/dL Random Glucose 103 (75-110) mg/dL Calcium 8.6 (8.6-10.4) mg/dl Phosphorus (2.5-4.5) mg/dL Magnesium (1.6-2.3) mg/dL Total Bilirubin 0.6 (0.2-1.3) mg/dL AST 30 (17-59) U/L ALT 36 (21-72) U/L Alkaline Phosphatase 93 (38-126) U/L Troponin I 0.1620 H* (0.00-0.120) ng/mL NT-Pro-B Natriuret Pep 605 (0-900) pg/mL Total Protein 7.8 (6.3-8.3) g/dL Albumin 4.2 (3.5-5.0) g/dL Globulin 3.7 (2.2-3.9) gm/dL Albumin/Globulin Ratio 1.1 (1.0-2.1) Urine Color Straw (YELLOW) Urine Clarity Clear (Clear) Urine pH 5.0 (5.0-8.0) Ur Specific [place] 1.030 (1.003-1.030) Urine Protein 1+ H (NEGATIVE) mg/dL Urine Glucose (UA) Normal (Normal) mg/dL Urine Ketones Negative (NEGATIVE) mg/dL Urine Blood Negative (NEGATIVE) Urine Nitrate Negative (NEGATIVE) Urine Bilirubin Negative (NEGATIVE) Urine Urobilinogen Normal (0.2-1.0) mg/dL Ur Leukocyte Esterase Neg (Negative) Mariya/uL Urine WBC (Auto) 1 (0-5) /hpf Urine RBC (Auto) 2 (0-3) /hpf Urine Bacteria Rare (<OCC) Urine Opiates Screen (NEGATIVE) Urine Methadone Screen (NEGATIVE) Ur Barbiturates Screen (NEGATIVE) Ur Phencyclidine Scrn (NEGATIVE) Ur Amphetamines Screen (NEGATIVE) U Benzodiazepines Scrn (NEGATIVE) U Oth Cocaine Metabols (NEGATIVE) U Cannabinoids Screen (NEGATIVE) Blood Type Antibody Screen 05/30/17 Range/Units 18:09 WBC 9.4 (4.8-10.8) K/uL RBC 5.22 (4.40-5.90) Mil/uL Hgb 15.6 (12.0-18.0) g/dL Hct 45.7 (35.0-51.0) % MCV 87.6 (80.0-94.0) fL MCH 29.9 (27.0-31.0) pg MCHC 34.1 (33.0-37.0) g/dL RDW 13.2 (11.5-14.5) % Plt Count 230 (130-400) K/uL MPV 8.8 (7.2-11.7) fL Neut % (Auto) 65.1 (50.0-75.0) % Lymph % (Auto) 20.2 (20.0-40.0) % Loving % (Auto) 10.7 H (0.0-10.0) % Eos % (Auto) 3.3 (0.0-4.0) % Baso % (Auto) 0.7 (0.0-2.0) % Neut # (Auto) 6.1 (1.8-7.0) K/uL Lymph # (Auto) 1.9 (1.0-4.3) K/uL Loving # (Auto) 1.0 H (0.0-0.8) K/uL Eos # (Auto) 0.3 (0.0-0.7) K/uL Baso # (Auto) 0.1 (0.0-0.2) K/uL PT (9.7-12.2) SECONDS INR APTT (21-34) SECONDS D-Dimer, Quantitative (0-243) ng/mlDDU Puncture Site pCO2 (35-45) mm/Hg pO2 (80-100) mm/Hg HCO3 (21-28) mmol/L ABG pH (7.35-7.45) ABG Total CO2 (22-28) mmol/L ABG O2 Saturation (95-98) % ABG Base Excess (-2.0-3.0) mmol/L ABG Hemoglobin (11.7-17.4) g/dL ABG Carboxyhemoglobin (0.5-1.5) % POC ABG HHb (Measured) (0.0-5.0) % ABG Methemoglobin (0.0-3.0) % Morales Test A-a O2 Difference mm/Hg Respiratory Index Hgb O2 Saturation (95.0-98.0) % Liter Flow FiO2 % Sodium (132-148) mmol/L Potassium (3.6-5.2) mmol/L Chloride (98-107) mmol/L Carbon Dioxide (22-30) mmol/L Anion Gap (10-20) BUN (9-20) mg/dL Creatinine (0.8-1.5) mg/dL Est GFR ( Amer) Est GFR (Non-Af Amer) POC Glucose (mg/dL) (65-110) mg/dL Random Glucose (75-110) mg/dL Calcium (8.6-10.4) mg/dl Phosphorus (2.5-4.5) mg/dL Magnesium (1.6-2.3) mg/dL Total Bilirubin (0.2-1.3) mg/dL AST (17-59) U/L ALT (21-72) U/L Alkaline Phosphatase (38-126) U/L Troponin I (0.00-0.120) ng/mL NT-Pro-B Natriuret Pep (0-900) pg/mL Total Protein (6.3-8.3) g/dL Albumin (3.5-5.0) g/dL Globulin (2.2-3.9) gm/dL Albumin/Globulin Ratio (1.0-2.1) Urine Color (YELLOW) Urine Clarity (Clear) Urine pH (5.0-8.0) Ur Specific [place] (1.003-1.030) Urine Protein (NEGATIVE) mg/dL Urine Glucose (UA) (Normal) mg/dL Urine Ketones (NEGATIVE) mg/dL Urine Blood (NEGATIVE) Urine Nitrate (NEGATIVE) Urine Bilirubin (NEGATIVE) Urine Urobilinogen (0.2-1.0) mg/dL Ur Leukocyte Esterase (Negative) Mariya/uL Urine WBC (Auto) (0-5) /hpf Urine RBC (Auto) (0-3) /hpf Urine Bacteria (<OCC) Urine Opiates Screen (NEGATIVE) Urine Methadone Screen (NEGATIVE) Ur Barbiturates Screen (NEGATIVE) Ur Phencyclidine Scrn (NEGATIVE) Ur Amphetamines Screen (NEGATIVE) U Benzodiazepines Scrn (NEGATIVE) U Oth Cocaine Metabols (NEGATIVE) U Cannabinoids Screen (NEGATIVE) Blood Type Antibody Screen Laboratory Results - last 24 hr 05/30/17 05/30/17 05/30/17 18:09 18:09 18:09 WBC 9.4 RBC 5.22 Hgb 15.6 Hct 45.7 MCV 87.6 MCH 29.9 MCHC 34.1 RDW 13.2 Plt Count 230 MPV 8.8 Neut % (Auto) 65.1 Lymph % (Auto) 20.2 Loving % (Auto) 10.7 H Eos % (Auto) 3.3 Baso % (Auto) 0.7 Neut # (Auto) 6.1 Lymph # (Auto) 1.9 Loving # (Auto) 1.0 H Eos # (Auto) 0.3 Baso # (Auto) 0.1 PT 12.5 H INR 1.1 APTT 27 D-Dimer, Quantitative 4358 H Puncture Site pCO2 pO2 HCO3 ABG pH ABG Total CO2 ABG O2 Saturation ABG Base Excess ABG Hemoglobin ABG Carboxyhemoglobin POC ABG HHb (Measured) ABG Methemoglobin Morales Test A-a O2 Difference Respiratory Index Hgb O2 Saturation Liter Flow FiO2 Sodium 142 Potassium 3.8 Chloride 103 Carbon Dioxide 24 Anion Gap 19 BUN 20 Creatinine 1.1 Est GFR ( Amer) > 60 Est GFR (Non-Af Amer) > 60 POC Glucose (mg/dL) Random Glucose 103 Calcium 8.6 Phosphorus Magnesium Total Bilirubin 0.6 AST 30 ALT 36 Alkaline Phosphatase 93 Troponin I 0.1620 H* NT-Pro-B Natriuret Pep 605 Total Protein 7.8 Albumin 4.2 Globulin 3.7 Albumin/Globulin Ratio 1.1 Urine Color Urine Clarity Urine pH Ur Specific [place] Urine Protein Urine Glucose (UA) Urine Ketones Urine Blood Urine Nitrate Urine Bilirubin Urine Urobilinogen Ur Leukocyte Esterase Urine WBC (Auto) Urine RBC (Auto) Urine Bacteria Urine Opiates Screen Urine Methadone Screen Ur Barbiturates Screen Ur Phencyclidine Scrn Ur Amphetamines Screen U Benzodiazepines Scrn U Oth Cocaine Metabols U Cannabinoids Screen Blood Type Antibody Screen 05/30/17 05/30/17 05/30/17 19:39 20:40 20:40 WBC RBC Hgb Hct MCV MCH MCHC RDW Plt Count MPV Neut % (Auto) Lymph % (Auto) Loving % (Auto) Eos % (Auto) Baso % (Auto) Neut # (Auto) Lymph # (Auto) Loving # (Auto) Eos # (Auto) Baso # (Auto) PT INR APTT D-Dimer, Quantitative Puncture Site Rra pCO2 32 L pO2 121 H HCO3 23.7 ABG pH 7.44 ABG Total CO2 22.7 ABG O2 Saturation 99.2 H ABG Base Excess -1.5 ABG Hemoglobin 15.8 ABG Carboxyhemoglobin 1.3 POC ABG HHb (Measured) 0.8 ABG Methemoglobin 1.3 Morales Test Pos A-a O2 Difference 267.0 Respiratory Index 2.2 Hgb O2 Saturation 96.5 Liter Flow 10.0 FiO2 60.0 Sodium Potassium Chloride Carbon Dioxide Anion Gap BUN Creatinine Est GFR ( Amer) Est GFR (Non-Af Amer) POC Glucose (mg/dL) Random Glucose Calcium Phosphorus Magnesium Total Bilirubin AST ALT Alkaline Phosphatase Troponin I NT-Pro-B Natriuret Pep Total Protein Albumin Globulin Albumin/Globulin Ratio Urine Color Straw Urine Clarity Clear Urine pH 5.0 Ur Specific [place] 1.030 Urine Protein 1+ H Urine Glucose (UA) Normal Urine Ketones Negative Urine Blood Negative Urine Nitrate Negative Urine Bilirubin Negative Urine Urobilinogen Normal Ur Leukocyte Esterase Neg Urine WBC (Auto) 1 Urine RBC (Auto) 2 Urine Bacteria Rare Urine Opiates Screen Urine Methadone Screen Ur Barbiturates Screen Ur Phencyclidine Scrn Ur Amphetamines Screen U Benzodiazepines Scrn U Oth Cocaine Metabols U Cannabinoids Screen Blood Type AB POSITIVE Antibody Screen Negative 05/30/17 05/30/17 05/30/17 21:48 22:46 23:42 WBC RBC Hgb Hct MCV MCH MCHC RDW Plt Count MPV Neut % (Auto) Lymph % (Auto) Loving % (Auto) Eos % (Auto) Baso % (Auto) Neut # (Auto) Lymph # (Auto) Loving # (Auto) Eos # (Auto) Baso # (Auto) PT INR APTT D-Dimer, Quantitative Puncture Site pCO2 pO2 HCO3 ABG pH ABG Total CO2 ABG O2 Saturation ABG Base Excess ABG Hemoglobin ABG Carboxyhemoglobin POC ABG HHb (Measured) ABG Methemoglobin Morales Test A-a O2 Difference Respiratory Index Hgb O2 Saturation Liter Flow FiO2 Sodium Potassium Chloride Carbon Dioxide Anion Gap BUN Creatinine Est GFR ( Amer) Est GFR (Non-Af Amer) POC Glucose (mg/dL) 115 H 110 Random Glucose Calcium Phosphorus Magnesium Total Bilirubin AST ALT Alkaline Phosphatase Troponin I NT-Pro-B Natriuret Pep Total Protein Albumin Globulin Albumin/Globulin Ratio Urine Color Urine Clarity Urine pH Ur Specific [place] Urine Protein Urine Glucose (UA) Urine Ketones Urine Blood Urine Nitrate Urine Bilirubin Urine Urobilinogen Ur Leukocyte Esterase Urine WBC (Auto) Urine RBC (Auto) Urine Bacteria Urine Opiates Screen Negative Urine Methadone Screen Negative Ur Barbiturates Screen Negative Ur Phencyclidine Scrn Negative Ur Amphetamines Screen Negative U Benzodiazepines Scrn Negative U Oth Cocaine Metabols Negative U Cannabinoids Screen Negative Blood Type Antibody Screen 05/31/17 05/31/17 05/31/17 01:00 06:21 06:21 WBC 11.2 H RBC 4.70 Hgb 13.8 Hct 41.1 MCV 87.5 MCH 29.4 MCHC 33.6 RDW 13.4 Plt Count 188 MPV 8.4 Neut % (Auto) 72.7 Lymph % (Auto) 17.6 L Loving % (Auto) 8.2 Eos % (Auto) 0.8 Baso % (Auto) 0.7 Neut # (Auto) 8.1 H Lymph # (Auto) 2.0 Loving # (Auto) 0.9 H Eos # (Auto) 0.1 Baso # (Auto) 0.1 PT INR APTT 26 77 H D D-Dimer, Quantitative Puncture Site pCO2 pO2 HCO3 ABG pH ABG Total CO2 ABG O2 Saturation ABG Base Excess ABG Hemoglobin ABG Carboxyhemoglobin POC ABG HHb (Measured) ABG Methemoglobin Morales Test A-a O2 Difference Respiratory Index Hgb O2 Saturation Liter Flow FiO2 Sodium Potassium Chloride Carbon Dioxide Anion Gap BUN Creatinine Est GFR ( Amer) Est GFR (Non-Af Amer) POC Glucose (mg/dL) Random Glucose Calcium Phosphorus Magnesium Total Bilirubin AST ALT Alkaline Phosphatase Troponin I NT-Pro-B Natriuret Pep Total Protein Albumin Globulin Albumin/Globulin Ratio Urine Color Urine Clarity Urine pH Ur Specific [place] Urine Protein Urine Glucose (UA) Urine Ketones Urine Blood Urine Nitrate Urine Bilirubin Urine Urobilinogen Ur Leukocyte Esterase Urine WBC (Auto) Urine RBC (Auto) Urine Bacteria Urine Opiates Screen Urine Methadone Screen Ur Barbiturates Screen Ur Phencyclidine Scrn Ur Amphetamines Screen U Benzodiazepines Scrn U Oth Cocaine Metabols U Cannabinoids Screen Blood Type Antibody Screen 05/31/17 06:21 WBC RBC Hgb Hct MCV MCH MCHC RDW Plt Count MPV Neut % (Auto) Lymph % (Auto) Loving % (Auto) Eos % (Auto) Baso % (Auto) Neut # (Auto) Lymph # (Auto) Loving # (Auto) Eos # (Auto) Baso # (Auto) PT INR APTT D-Dimer, Quantitative Puncture Site pCO2 pO2 HCO3 ABG pH ABG Total CO2 ABG O2 Saturation ABG Base Excess ABG Hemoglobin ABG Carboxyhemoglobin POC ABG HHb (Measured) ABG Methemoglobin Morales Test A-a O2 Difference Respiratory Index Hgb O2 Saturation Liter Flow FiO2 Sodium 141 Potassium 4.0 Chloride 107 Carbon Dioxide 24 Anion Gap 14 BUN 20 Creatinine 0.8 Est GFR ( Amer) > 60 Est GFR (Non-Af Amer) > 60 POC Glucose (mg/dL) Random Glucose 101 Calcium 8.7 Phosphorus 4.1 Magnesium 1.9 Total Bilirubin 0.7 AST 34 ALT 34 Alkaline Phosphatase 85 Troponin I 1.5700 H* NT-Pro-B Natriuret Pep Total Protein 6.9 Albumin 3.4 L Globulin 3.4 Albumin/Globulin Ratio 1.0 Urine Color Urine Clarity Urine pH Ur Specific [place] Urine Protein Urine Glucose (UA) Urine Ketones Urine Blood Urine Nitrate Urine Bilirubin Urine Urobilinogen Ur Leukocyte Esterase Urine WBC (Auto) Urine RBC (Auto) Urine Bacteria Urine Opiates Screen Urine Methadone Screen Ur Barbiturates Screen Ur Phencyclidine Scrn Ur Amphetamines Screen U Benzodiazepines Scrn U Oth Cocaine Metabols U Cannabinoids Screen Blood Type Antibody Screen EKG/Cardiology Studies: Cardiology / EKG Studies 05/30/17 18:05 ELECTROCARDIOGRAM Stat Comment: Mode Of Transportation: BED Reason For Exam: chest pain Fingerstick Blood Sugar Results: 115 Critical Care Progress Note - Nutrition Nutrition: Nutrition Category Date Time Status Heart Healthy Diet [DIET] Diets 05/30/17 Breakfast Active Assessment/Plan - Assessment and Plan (Free Text) Assessment: Patient is a 62 year old male with past medical history of Left lower extremity DVT 4 years ago, was on coumadin for 3 months at that time, presented to the ED with worsening shortness of breath. Found to have Submassive pulmonary embolism. Neurology: -Patient is AAOx3 -Admitted to the ICU for closer monitoring Cardiology: -Patient is on heparin drip -Echo ordered, f.u read -Venous duplex ordered to r/o DVT -Troponins trending up 0.1620 -> 1.570 -Cardiology consulted, Dr Whitaker, help appreciated Respiratory: -CT angio showed acute pulmonary embolism with large clot burden. Elevated RV/ LV ratio indication right ventricular strain, small hiatal hernia, Mosaic perfusion abnormality. May be related to intrapulmonary shunting secondary to thrombosis (see full report) -Patient is currently on heparin drip -Recieved Tpa 10mg x 1 yesterday, patient was apprehensive about recieving a larger dose -IR consulted for possible EKOS thrombolytic therapy for submassive PE Renal: -No acute issues at this time Endocrine: -No acute issues at this time Infectious Disease: -No acute issues at this time Heme/Onc: -Patient states to his knowledge, unsure why he got the DVT 4 year ago -Heme/Onc, Dr Magaña on consult, help appreciated -F/U Factor V, Protein C, Protein S levels <Sanjay Rodriguez - Last Filed: 06/02/17 14:05> CCU Objective - Vital Signs / Intake & Output Vital Signs (Last 4 hours): Vital Signs Pulse Resp BP Pulse Ox 06/02/17 11:00 82 17 91 L 06/02/17 10:40 76 16 153/120 H 83 L Intake and Output (Last 8hrs): Intake & Output 06/01/17 06/02/17 06/02/17 22:59 06:59 14:59 Intake Total 515.2 119.9 40.5 Output Total 1300 600 750 Balance -784.8 -480.1 -709.5 Weight 188 lb Intake: IV 60 Intake, IV Amount 95.2 119.9 40.5 Rt AC-y port 95.2 119.9 40.5 Oral 360 Output: Urine 1300 600 750 Urethral (Wilde) 1000 600 350 Urine, Voided 300 400 - Medications Active Medications: Active Medications Generic Name Dose Route Start Last Admin Trade Name Freq PRN Reason Stop Dose Admin Dabigatran 150 mg 06/02/17 10:00 06/02/17 09:59 Pradaxa PO 150 mg BID AKVITHA Administration Pantoprazole Sodium 40 mg 06/01/17 12:00 06/02/17 10:02 Protonix Ec Tab PO 40 mg DAILY KAVITHA Administration - Patient Studies Lab Studies: Microbiology Studies 05/31/17 00:05 MRSA Culture (Admit) - Final Nose MRSA DETECTED Lab Studies 06/02/17 06/02/17 06/02/17 Range/Units 06:24 06:24 06:24 WBC 8.3 (4.8-10.8) K/uL RBC 4.66 (4.40-5.90) Mil/uL Hgb 14.1 (12.0-18.0) g/dL Hct 41.1 (35.0-51.0) % MCV 88.3 (80.0-94.0) fL MCH 30.3 (27.0-31.0) pg MCHC 34.3 (33.0-37.0) g/dL RDW 13.7 (11.5-14.5) % Plt Count 174 (130-400) K/uL MPV 10.3 (7.2-11.7) fL Neut % (Auto) 63.3 (50.0-75.0) % Lymph % (Auto) 21.2 (20.0-40.0) % Loving % (Auto) 10.0 (0.0-10.0) % Eos % (Auto) 4.4 H (0.0-4.0) % Baso % (Auto) 1.1 (0.0-2.0) % Neut # (Auto) 5.3 (1.8-7.0) K/uL Lymph # (Auto) 1.8 (1.0-4.3) K/uL Loving # (Auto) 0.8 (0.0-0.8) K/uL Eos # (Auto) 0.4 (0.0-0.7) K/uL Baso # (Auto) 0.1 (0.0-0.2) K/uL PT (9.7-12.2) SECONDS INR APTT 51 H D (21-34) SECONDS Fibrinogen (200-400) mg/dL Protein S Antigen (70-140) % Sodium 140 (132-148) mmol/L Potassium 3.8 (3.6-5.2) mmol/L Chloride 106 (98-107) mmol/L Carbon Dioxide 22 (22-30) mmol/L Anion Gap 16 (10-20) BUN 23 H (9-20) mg/dL Creatinine 1.0 (0.8-1.5) mg/dL Est GFR ( Amer) > 60 Est GFR (Non-Af Amer) > 60 Random Glucose 93 (75-110) mg/dL Calcium 8.5 L (8.6-10.4) mg/dl Phosphorus 3.5 (2.5-4.5) mg/dL Magnesium 1.9 (1.6-2.3) mg/dL Total Bilirubin 0.5 (0.2-1.3) mg/dL AST 28 (17-59) U/L ALT 36 (21-72) U/L Alkaline Phosphatase 79 (38-126) U/L Total Protein 6.9 (6.3-8.3) g/dL Albumin 3.4 L (3.5-5.0) g/dL Globulin 3.5 (2.2-3.9) gm/dL Albumin/Globulin Ratio 1.0 (1.0-2.1) 06/01/17 06/01/17 06/01/17 Range/Units 21:40 15:58 15:58 WBC 8.2 (4.8-10.8) K/uL RBC 4.64 (4.40-5.90) Mil/uL Hgb 13.8 (12.0-18.0) g/dL Hct 40.8 (35.0-51.0) % MCV 87.8 (80.0-94.0) fL MCH 29.8 (27.0-31.0) pg MCHC 34.0 (33.0-37.0) g/dL RDW 13.4 (11.5-14.5) % Plt Count 174 (130-400) K/uL MPV 8.8 (7.2-11.7) fL Neut % (Auto) (50.0-75.0) % Lymph % (Auto) (20.0-40.0) % Loving % (Auto) (0.0-10.0) % Eos % (Auto) (0.0-4.0) % Baso % (Auto) (0.0-2.0) % Neut # (Auto) (1.8-7.0) K/uL Lymph # (Auto) (1.0-4.3) K/uL Loving # (Auto) (0.0-0.8) K/uL Eos # (Auto) (0.0-0.7) K/uL Baso # (Auto) (0.0-0.2) K/uL PT (9.7-12.2) SECONDS INR APTT 44 H (21-34) SECONDS Fibrinogen (200-400) mg/dL Protein S Antigen (70-140) % Sodium 140 (132-148) mmol/L Potassium 3.9 (3.6-5.2) mmol/L Chloride 107 (98-107) mmol/L Carbon Dioxide 23 (22-30) mmol/L Anion Gap 13 (10-20) BUN 14 (9-20) mg/dL Creatinine 0.9 (0.8-1.5) mg/dL Est GFR ( Amer) > 60 Est GFR (Non-Af Amer) > 60 Random Glucose 100 (75-110) mg/dL Calcium 8.6 (8.6-10.4) mg/dl Phosphorus (2.5-4.5) mg/dL Magnesium (1.6-2.3) mg/dL Total Bilirubin (0.2-1.3) mg/dL AST (17-59) U/L ALT (21-72) U/L Alkaline Phosphatase (38-126) U/L Total Protein (6.3-8.3) g/dL Albumin (3.5-5.0) g/dL Globulin (2.2-3.9) gm/dL Albumin/Globulin Ratio (1.0-2.1) 06/01/17 05/31/17 Range/Units 15:58 07:27 WBC (4.8-10.8) K/uL RBC (4.40-5.90) Mil/uL Hgb (12.0-18.0) g/dL Hct (35.0-51.0) % MCV (80.0-94.0) fL MCH (27.0-31.0) pg MCHC (33.0-37.0) g/dL RDW (11.5-14.5) % Plt Count (130-400) K/uL MPV (7.2-11.7) fL Neut % (Auto) (50.0-75.0) % Lymph % (Auto) (20.0-40.0) % Loving % (Auto) (0.0-10.0) % Eos % (Auto) (0.0-4.0) % Baso % (Auto) (0.0-2.0) % Neut # (Auto) (1.8-7.0) K/uL Lymph # (Auto) (1.0-4.3) K/uL Loving # (Auto) (0.0-0.8) K/uL Eos # (Auto) (0.0-0.7) K/uL Baso # (Auto) (0.0-0.2) K/uL PT 13.9 H (9.7-12.2) SECONDS INR 1.2 APTT 47 H D (21-34) SECONDS Fibrinogen 420 H (200-400) mg/dL Protein S Antigen 123 (70-140) % Sodium (132-148) mmol/L Potassium (3.6-5.2) mmol/L Chloride (98-107) mmol/L Carbon Dioxide (22-30) mmol/L Anion Gap (10-20) BUN (9-20) mg/dL Creatinine (0.8-1.5) mg/dL Est GFR ( Amer) Est GFR (Non-Af Amer) Random Glucose (75-110) mg/dL Calcium (8.6-10.4) mg/dl Phosphorus (2.5-4.5) mg/dL Magnesium (1.6-2.3) mg/dL Total Bilirubin (0.2-1.3) mg/dL AST (17-59) U/L ALT (21-72) U/L Alkaline Phosphatase (38-126) U/L Total Protein (6.3-8.3) g/dL Albumin (3.5-5.0) g/dL Globulin (2.2-3.9) gm/dL Albumin/Globulin Ratio (1.0-2.1) Laboratory Results - last 24 hr 05/31/17 06/01/17 06/01/17 07:27 15:58 15:58 WBC RBC Hgb Hct MCV MCH MCHC RDW Plt Count MPV Neut % (Auto) Lymph % (Auto) Loving % (Auto) Eos % (Auto) Baso % (Auto) Neut # (Auto) Lymph # (Auto) Loving # (Auto) Eos # (Auto) Baso # (Auto) PT 13.9 H INR 1.2 APTT 47 H D Fibrinogen 420 H Protein S Antigen 123 Sodium 140 Potassium 3.9 Chloride 107 Carbon Dioxide 23 Anion Gap 13 BUN 14 Creatinine 0.9 Est GFR ( Amer) > 60 Est GFR (Non-Af Amer) > 60 Random Glucose 100 Calcium 8.6 Phosphorus Magnesium Total Bilirubin AST ALT Alkaline Phosphatase Total Protein Albumin Globulin Albumin/Globulin Ratio 06/01/17 06/01/17 06/02/17 15:58 21:40 06:24 WBC 8.2 8.3 RBC 4.64 4.66 Hgb 13.8 14.1 Hct 40.8 41.1 MCV 87.8 88.3 MCH 29.8 30.3 MCHC 34.0 34.3 RDW 13.4 13.7 Plt Count 174 174 MPV 8.8 10.3 Neut % (Auto) 63.3 Lymph % (Auto) 21.2 Loving % (Auto) 10.0 Eos % (Auto) 4.4 H Baso % (Auto) 1.1 Neut # (Auto) 5.3 Lymph # (Auto) 1.8 Loving # (Auto) 0.8 Eos # (Auto) 0.4 Baso # (Auto) 0.1 PT INR APTT 44 H Fibrinogen Protein S Antigen Sodium Potassium Chloride Carbon Dioxide Anion Gap BUN Creatinine Est GFR ( Amer) Est GFR (Non-Af Amer) Random Glucose Calcium Phosphorus Magnesium Total Bilirubin AST ALT Alkaline Phosphatase Total Protein Albumin Globulin Albumin/Globulin Ratio 06/02/17 06/02/17 06:24 06:24 WBC RBC Hgb Hct MCV MCH MCHC RDW Plt Count MPV Neut % (Auto) Lymph % (Auto) Loving % (Auto) Eos % (Auto) Baso % (Auto) Neut # (Auto) Lymph # (Auto) Loving # (Auto) Eos # (Auto) Baso # (Auto) PT INR APTT 51 H D Fibrinogen Protein S Antigen Sodium 140 Potassium 3.8 Chloride 106 Carbon Dioxide 22 Anion Gap 16 BUN 23 H Creatinine 1.0 Est GFR ( Amer) > 60 Est GFR (Non-Af Amer) > 60 Random Glucose 93 Calcium 8.5 L Phosphorus 3.5 Magnesium 1.9 Total Bilirubin 0.5 AST 28 ALT 36 Alkaline Phosphatase 79 Total Protein 6.9 Albumin 3.4 L Globulin 3.5 Albumin/Globulin Ratio 1.0 Critical Care Progress Note - Nutrition Nutrition: Nutrition Category Date Time Status Heart Healthy Diet [DIET] Diets 05/30/17 Breakfast Active Attending/Attestation - Attestation I have personally seen and examined this patient.: Yes I have fully participated in the care of the patient.: Yes I have reviewed all pertinent clinical information: Yes Notes (Text): 05/31/17 14:00 pt is seen examined evaluated agree with resident note
[2017-05-31] MEDS ORDERED: Lidocaine 2% Inj (20ml) ONE (12:10)
[2017-05-31] MEDS ORDERED: Midazolam 2 MG/2 ML VIAL ONE (12:11)
[2017-05-31] MEDS ORDERED: Iodixanol 320 MG/ML 200 ML BOTTLE IV ONE (12:11)
[2017-05-31] MEDS ORDERED: Iodixanol 320 MG/ML 100 ML BOTTLE IV ONE (12:11)
[2017-05-31] MEDS ORDERED: Heparin25000 units/250ml 1/2NS 25,000 UNITS/250 ML BAG IV ONE (13:01)
--- NOTE | 2017-05-31 13:10 | PCM.IRPREO ---
Pre Procedure Note - History Proposed Procedure: EKOS for catheter directed thrombolysis. Pre-Op Diagnosis: Pulmonary artery saddle embolism, RV strain - Pre Procedure Were any radiologic studies performed in the last 12 months: Yes List of radiologic studies performed: CT angiogram Was medical management performed in the past 24 months: Yes (heparing, TPA) List of medical management performed: Heparin IV, TPA Clinical indication for the procedure: Saddel PE with RV strain Have risks and benefits been explained to the patient: Yes Risks and benefits been explained to the patient: BLeeding, arrthymia, hematoma Have alternatives to surgery explained to the patient as applicable: Yes - Allergies Allergies: Allergies No Known Allergies Allergy (Verified 05/30/17 17:58) - Physical Exam Vital Signs: Vital Signs 05/31/17 05/31/17 05/31/17 05:15 05:22 05:30 Pulse Rate 92 H 97 H 89 Respiratory 13 11 L 15 Rate Blood Pressure 128/88 O2 Sat by Pulse 96 97 96 Oximetry 05/31/17 05/31/17 05/31/17 05:45 05:52 06:00 Pulse Rate 85 86 83 Respiratory 16 14 16 Rate Blood Pressure 112/86 O2 Sat by Pulse 96 96 95 Oximetry 05/31/17 05/31/17 05/31/17 06:15 06:22 06:30 Pulse Rate 92 H 96 H 96 H Respiratory 17 11 L 11 L Rate Blood Pressure 146/95 H O2 Sat by Pulse 95 95 96 Oximetry 05/31/17 05/31/17 05/31/17 06:45 06:52 07:00 Pulse Rate 101 H 98 H 94 H Respiratory 17 11 L 16 Rate Blood Pressure 152/99 H O2 Sat by Pulse 94 L 92 L 93 L Oximetry 05/31/17 05/31/17 05/31/17 07:15 07:22 07:30 Pulse Rate 93 H 95 H 91 H Respiratory 18 12 16 Rate Blood Pressure 143/94 H O2 Sat by Pulse 92 L 92 L 92 L Oximetry 05/31/17 05/31/17 05/31/17 07:52 08:00 08:22 Pulse Rate 96 H 91 H 93 H Respiratory 14 18 11 L Rate Blood Pressure 150/92 H 145/95 H O2 Sat by Pulse 94 L 92 L 94 L Oximetry 05/31/17 05/31/17 05/31/17 08:30 08:52 09:00 Pulse Rate 94 H 97 H 95 H Respiratory 16 11 L 21 Rate Blood Pressure 155/103 H O2 Sat by Pulse 95 94 L 94 L Oximetry 05/31/17 05/31/17 05/31/17 09:10 09:15 09:22 Pulse Rate 95 H 93 H 98 H Respiratory 12 16 14 Rate Blood Pressure 150/109 H 154/100 H O2 Sat by Pulse 96 94 L 93 L Oximetry 05/31/17 05/31/17 05/31/17 09:30 09:37 09:52 Pulse Rate 93 H Respiratory 14 Rate Blood Pressure 154/94 H 149/89 O2 Sat by Pulse 93 L Oximetry 05/31/17 05/31/17 05/31/17 10:00 10:15 10:22 Pulse Rate 90 96 H 95 H Respiratory 19 22 17 Rate Blood Pressure 141/98 H O2 Sat by Pulse 91 L 93 L 93 L Oximetry 05/31/17 05/31/17 05/31/17 10:30 10:45 10:52 Pulse Rate 91 H 91 H 89 Respiratory 18 21 17 Rate Blood Pressure 154/94 H O2 Sat by Pulse 92 L 91 L 92 L Oximetry 05/31/17 05/31/17 05/31/17 11:00 11:15 11:22 Pulse Rate 87 84 89 Respiratory 20 19 20 Rate Blood Pressure 142/97 H O2 Sat by Pulse 93 L 92 L 92 L Oximetry 05/31/17 05/31/17 11:30 12:00 Pulse Rate 93 H 89 Respiratory 16 18 Rate Blood Pressure O2 Sat by Pulse 92 L 93 L Oximetry Neuro: WNL Heart: Other (tachycardic.) Lungs: WNL - Impression Impression: Pt with saddle PE and RV strain. He is hemodynamically stable but becomes short of breath when walking. Plan EKOS catheter directed thrombolysis. Pt. Evaluated Today:Candidate for Anesthesia & Procedure: ASA 4 Malampati 3 - Date & Time Date: 05/31/17 Time: 12:00
--- NOTE | 2017-05-31 13:13 | PCM.SURG1 ---
Surgeon's Initial Post Op Note - Surgeon's Notes Surgeon: Cristhian Diaz MD Gear Grinding Machine Operator: NONE Type of Anesthesia: Local Pre-Operative Diagnosis: Saddle PE with RV strain Operative Findings: PA angigram showed paucity of vessels beyong the main right and left PA. This is secondary to extensive clot. Post-Operative Diagnosis: Saddle PE with RV strain Operation Performed: Placement of an EKOS catheter 18 cm for catheter directed thrombolysis. Specimen/Specimens Removed: none Estimated Blood Loss: EBL {In ML}: 3 Blood Products Given: N/A Drains Used: No Drains Post-Op Condition: Poor Date of Surgery/Procedure: 05/31/17 Time of Surgery/Procedure: 13:05
[2017-05-31] MEDS ORDERED: Sodium Chloride 0.9% 1,000 ML IV SCH (13:15)
--- NOTE | 2017-05-31 14:10 | SPECPROC ---
PROCEDURE: Date of procedure: 05/31/2017 Procedure: 1. Ultrasound guidance for vascular access 2. Pulmonary artery angiogram 3. Placement of a Ekos thrombolysis catheter the right pulmonary artery for catheter directed thrombolysis Medications: 8cc lidocaine 1 percent TOTAL CONTRAST: Cubic centimeters EBL: 5 cubic centimeters HISTORY: Aspect, saddle pulmonary embolism, right ventricular strain. TECHNIQUE: Following informed consent and procedure time-out, the patient placed supine on the seizure table. After patient sedated, her right neck and chest were prepped and draped in the usual sterile fashion. Ultrasound showed a patent and compressible right femoral vein. Under ultrasound guidance the femoral vein was accessed with micropuncture technique and a guidewire was advanced under fluoroscopic guidance into the inferior vena cava. A 6 Thai vascular sheath advanced into the femoral vein. A pigtail flush catheter was advanced over wire into the right ventricle and position within the main pulmonary artery. A pulmonary artery angiogram was performed. Pulmonary angiogram showed a paucity of vessels in both the right and left lung. This is consistent with significant thrombus seen within the segmental branches of the right and left pulmonary arteries on CT angiogram. A guidewire was advanced into the lower segmental pulmonary artery. Ekos thrombolysis catheter was advanced over the wire and positioned within the right segmental pulmonary artery and extending proximally into the main pulmonary artery. An 18-cm treatment length Ekos catheter was placed for catheter directed thrombolysis. The catheter secured patient's skin. The patient is transferred to the intensive care unit for tPA infusion and will return for followup venogram. IMPRESSION: 1. Pulmonary artery angiogram showed significant thromboembolism in both right and left pulmonary arteries. 2. Placement of an Ekos thrombolysis catheter for infusion of TPA in the main and right PA.
[2017-05-31] MEDS ORDERED: Heparin25000 units/250ml 1/2NS 25,000 UNITS/250 ML BAG IV PRN (14:30)
[2017-05-31 15:05] LABS: HEMOGLOBIN 14.5 g/dL (12.0-18.0); MEAN CELL VOLUME 87.2 fL (80.0-94.0); MEAN CORPUSCULAR HGB CONC 34.4 g/dL (33.0-37.0); MEAN PLATELET VOLUME 8.4 fL (7.2-11.7); RBC 4.84 Mil/uL (4.40-5.90); RED CELL DISTRIBUTION WIDTH 13.5 % (11.5-14.5); WHITE BLOOD COUNT 10.1 K/uL (4.8-10.8)
[2017-05-31 15:14] LABS: INR 1.2
[2017-05-31 15:22] LABS: BLOOD UREA NITROGEN 15 mg/dL (9-20); CALCIUM 8.3 mg/dl (8.6-10.4); GFR AFRICAN-AMERICAN > 60; GFR NON-AFRICAN AMERICAN > 60
[2017-05-31 16:31] LABS: CK-MB 4.84 ng/mL (0.0-3.38); TROPONIN I 0.704 ng/mL (0.00-0.120)
[2017-05-31 23:18] LABS: HEMOGLOBIN 13.6 g/dL (12.0-18.0); MEAN CELL VOLUME 88.1 fL (80.0-94.0); MEAN CORPUSCULAR HEMOGLOBIN 30.2 pg (27.0-31.0); MEAN CORPUSCULAR HGB CONC 34.3 g/dL (33.0-37.0); MEAN PLATELET VOLUME 8.5 fL (7.2-11.7); RBC 4.49 Mil/uL (4.40-5.90); RED CELL DISTRIBUTION WIDTH 13.5 % (11.5-14.5); WHITE BLOOD COUNT 9.8 K/uL (4.8-10.8)
[2017-05-31 23:26] LABS: INR 1.3; PROTHROMBIN TIME 14.5 SECONDS (9.7-12.2)
[2017-05-31 23:27] LABS: BLOOD UREA NITROGEN 15 mg/dL (9-20); GFR AFRICAN-AMERICAN > 60; GFR NON-AFRICAN AMERICAN > 60
[2017-06-01] MEDS: Sodium Chloride 0.9% 1,000 ML IV SCH (05:42)
[2017-06-01 07:11] LABS: BASO # 0.1 K/uL (0.0-0.2); BASO % 1.1 % (0.0-2.0); EOS # 0.2 K/uL (0.0-0.7); EOS % 2.5 % (0.0-4.0); HEMOGLOBIN 13.5 g/dL (12.0-18.0); LYMPH # 1.8 K/uL (1.0-4.3); LYMPH % 19.9 % (20.0-40.0); MEAN CELL VOLUME 87.5 fL (80.0-94.0); MEAN CORPUSCULAR HEMOGLOBIN 30.2 pg (27.0-31.0); MEAN CORPUSCULAR HGB CONC 34.4 g/dL (33.0-37.0); MEAN PLATELET VOLUME 8.8 fL (7.2-11.7); MONO # 0.8 K/uL (0.0-0.8); MONO % 8.6 % (0.0-10.0); NEUT # 6.3 K/uL (1.8-7.0); NEUT % 67.9 % (50.0-75.0); RBC 4.49 Mil/uL (4.40-5.90); RED CELL DISTRIBUTION WIDTH 13.6 % (11.5-14.5); WHITE BLOOD COUNT 9.2 K/uL (4.8-10.8)
[2017-06-01 07:36] LABS: ALB/GLOB RATIO 0.9 (1.0-2.1); ALBUMIN 3.1 g/dL (3.5-5.0); ALT/SGPT 32 U/L (21-72); AST/SGOT 30 U/L (17-59); BLOOD UREA NITROGEN 15 mg/dL (9-20); GFR AFRICAN-AMERICAN > 60; GFR NON-AFRICAN AMERICAN > 60
[2017-06-01 07:37] LABS: INR 1.3; PROTHROMBIN TIME 14.3 SECONDS (9.7-12.2)
--- NOTE | 2017-06-01 09:22 | CP.PCM.PN ---
Subjective - Date & Time of Evaluation Date of Evaluation: 06/01/17 Time of Evaluation: 09:00 - Subjective Subjective: Patient currently feeling well. Not in any acute distress. Denied chest pain, denied shortness of breath, denied palpitations On telemetry he is NSR in the 70s. BP stable At sometime later today will be returning to lab clerk to remove EKOS catheter. Per cardiology will hold off on echo until tomorrow. Objective - Vital Signs/Intake and Output Vital Signs (last 24 hours): Temp Pulse Resp BP Pulse Ox 98.2 F 78 15 159/87 H 96 06/01/17 08:00 06/01/17 09:07 06/01/17 09:07 06/01/17 09:07 06/01/17 09:07 Intake and Output: 06/01/17 06/01/17 06:59 18:59 Intake Total 2556.5 359.0 Output Total 2000 Balance 556.5 359.0 - Medications Medications: Current Medications Heparin Sodium/Sodium Chloride (Heparin 99743 Units/250ml 1/2 Normal Saline) 25 ,000 units in 250 mls @ 18.711 mls/hr IV .[id number] PRN; Protocol; 22 UNITS/KG/HR PRN Reason: ADJUST RATE PER PROTOCOL Last Titration: 06/01/17 00:39 Dose: 17 units/kg/hr, 14.458 mls/hr Sodium Chloride (Sodium Chloride 0.9%) 1,000 mls @ 35 mls/hr IV .Q24H KAVITHA Last Admin: 05/31/17 14:07 Dose: 35 mls/hr Heparin Sodium/Sodium Chloride (Heparin 86626 Units/250ml 1/2 Normal Saline) 25 ,000 units in 250 mls @ 5 mls/hr IV .Q24H PRN PRN Reason: EKOS Last Admin: 05/31/17 14:53 Dose: 5 mls/hr Alteplase, Recombinant 10 mg/ (Sodium Chloride) 250 mls @ 25 mls/hr IV Q10H KAVITHA Pantoprazole Sodium (Protonix Ec Tab) 40 mg PO DAILY KAVITHA - Labs Labs: 06/01/17 07:08 06/01/17 07:08 PT 14.3 SECONDS (9.7-12.2) H 06/01/17 07:08 INR 1.3 06/01/17 07:08 APTT 126 SECONDS (21-34) H* D 06/01/17 07:08 Assessment and Plan - Assessment and Plan (Free Text) Assessment: Assessment: 1. Acute on Chronic PE 06/01: Doing well. Later will return to lab clerk for removal of the EKOS. Per cardiology hold of on echo until tommorow 05/31: Patient overnight did get TPA, however it was a very small dose. The patient did not agree with the recommendations of ICU staff. I spoke with the patient extensively this morning. I also hoa out a picture to help explain to him what was happening. Maybe the patient could benefit from a direct thrombolysis of this clot by interventional cardiology. He remains on a heparin ggt at this time. We are also pending echo as well D-dimer [id number] CTA: acute pulmonary embolism with large clot burder, elevated RV/LV ratio indicating right ventricular strain, small hiatal hernia, mosaic perfusion abnormality, may be related to intrapulmonary shunting secondary to thrombosis. Pending LE dopplers Pending Protein C, S, and factor V leiden Low dose TPA 10mg given (patient refused higher does) 2. Hypoxic Respiratory failure with large A-a gradient 05/31: On nasal cannula now. SpO2 still on the low 90s side. -ABG: pH 7.44, pCO2 32, p02 121, HCO3 23.7 3. NSTEMI, right heart strain. 05/31: Troponin climbed to 1.57, heparin ggt. Cardiology evaluation Trop I .1620 -EKG sinus tach at 120bpm 4. Prophylaxis Heparin drip Protonix 40mg ivp q12h
[2017-06-01] MEDS ORDERED: Lidocaine 2% Inj (20ml) ONE (10:06)
[2017-06-01] MEDS ORDERED: Iodixanol 320 MG/ML 200 ML BOTTLE IV ONE (10:09)
--- NOTE | 2017-06-01 10:14 | CP.CCUPN ---
<OmegaMary george - Last Filed: 06/01/17 13:22> CCU Subjective - Physician Review Subjective (Free Text): 06/01/17 10:10 Patient seen and examined at bedside. Per nursing no acute events overnight. Patient is s/p EKOS with direct thrombolysis for submassive PE. Heparin and altepase currently infusing via groin catheter. Patient is doing well, offers no complaints at this time. Denies headaches, dizziness, cp, palpitations, sob, abdominal pain, urinary symptoms. CCU Objective - Vital Signs / Intake & Output Vital Signs (Last 4 hours): Vital Signs Temp Pulse Resp BP Pulse Ox 06/01/17 09:07 78 15 159/87 H 96 06/01/17 09:00 78 14 95 06/01/17 08:51 74 16 140/75 95 06/01/17 08:45 70 18 95 06/01/17 08:36 70 17 129/78 96 06/01/17 08:30 72 11 L 94 L 06/01/17 08:21 73 11 L 143/87 94 L 06/01/17 08:15 76 23 96 06/01/17 08:06 70 17 149/82 94 L 06/01/17 08:00 98.2 F 73 14 96 06/01/17 07:51 71 10 L 150/88 96 06/01/17 07:45 67 12 96 06/01/17 07:36 69 16 142/84 96 06/01/17 07:30 67 16 95 06/01/17 07:21 72 15 141/87 95 06/01/17 07:15 68 16 95 06/01/17 07:06 70 16 144/83 95 06/01/17 07:00 75 12 122/86 96 06/01/17 06:51 72 15 122/86 96 06/01/17 06:45 71 21 96 06/01/17 06:36 70 19 131/82 94 L 06/01/17 06:30 69 16 96 06/01/17 06:21 70 18 141/81 96 06/01/17 06:15 65 16 96 Intake and Output (Last 8hrs): Intake & Output 05/31/17 06/01/17 06/01/17 22:59 06:59 14:59 Intake Total 1676 1728.5 464.0 Output Total 1000 1200 Balance 676 528.5 464.0 Weight 85.049 kg Intake: IV 125 105 Intake, IV Amount 1456 1603.5 359.0 Right Antecubital 800 900 200 Right femoral 1 40 45 10 Right femoral 2 200 225 50 Right femoral 3 280 315 70 Rt AC-y port 136 118.5 29.0 Oral 220 Output: Urine 1000 1200 Urethral (Wilde) 1000 1200 Other: # Bowel Movements 1 - Physical Exam Head: Positive for: Atraumatic, Normocephalic Pupils: Positive for: PERRL Extroacular Muscles: Positive for: EOMI Conjunctiva: Positive for: Normal Mouth: Positive for: Moist Mucous Membranes Neck: Positive for: Normal Range of Motion, JVD (mild ) Respiratory/Chest: Positive for: Clear to Auscultation, Good Air Exchange, Other (O2 sats 91-94 on 1L NC). Negative for: Respiratory Distress Cardiovascular: Positive for: Regular Rate and Rhythm, Normal S1, S2 Abdomen: Positive for: Normal Bowel Sounds. Negative for: Tenderness Lower Extremity: Positive for: Edema (Right sided lower extremity pitting edema ), NORMAL PULSES, Other (right groin access site dressing with pink drainage, no active bleeding ) Neurological: Positive for: CN II-XII Intact Skin: Positive for: Warm, Dry, Normal Color Psychiatric: Positive for: Alert, Oriented x 3 - Medications Active Medications: Active Medications Generic Name Dose Route Start Last Admin Trade Name Freq PRN Reason Stop Dose Admin Heparin Sodium/Sodium Chloride 25,000 units in 250 mls @ 18.711 mls/hr 01:36 06/01/17 09:00 Heparin 98007 Units/250ml 1/2 Normal Saline IV 14 units/kg/hr .[id number] PRN 11.907 mls/hr ADJUST RATE PER PROTOCOL Titration Protocol 22 UNITS/KG/HR Sodium Chloride 1,000 mls @ 35 mls/hr 05/31/17 13:15 05/31/17 14:07 Sodium Chloride 0.9% IV 35 mls/hr .Q24H KAVITHA Administration Heparin Sodium/Sodium Chloride 25,000 units in 250 mls @ 5 mls/hr 05/31/17 14: 30 05/31/17 14:53 Heparin 39512 Units/250ml 1/2 Normal Saline IV 5 mls/hr .Q24H PRN Administration EKOS Alteplase, Recombinant 10 mg/ 250 mls @ 25 mls/hr 06/01/17 09:00 Sodium Chloride IV Q10H KAVITHA Pantoprazole Sodium 40 mg 06/01/17 12:00 Protonix Ec Tab PO DAILY KAVITHA - Patient Studies Lab Studies: Lab Studies 06/01/17 06/01/17 06/01/17 Range/Units 07:08 07:08 07:08 WBC 9.2 (4.8-10.8) K/uL RBC 4.49 (4.40-5.90) Mil/uL Hgb 13.5 (12.0-18.0) g/dL Hct 39.3 (35.0-51.0) % MCV 87.5 (80.0-94.0) fL MCH 30.2 (27.0-31.0) pg MCHC 34.4 (33.0-37.0) g/dL RDW 13.6 (11.5-14.5) % Plt Count 164 (130-400) K/uL MPV 8.8 (7.2-11.7) fL Neut % (Auto) 67.9 (50.0-75.0) % Lymph % (Auto) 19.9 L (20.0-40.0) % Towner % (Auto) 8.6 (0.0-10.0) % Eos % (Auto) 2.5 (0.0-4.0) % Baso % (Auto) 1.1 (0.0-2.0) % Neut # (Auto) 6.3 (1.8-7.0) K/uL Lymph # (Auto) 1.8 (1.0-4.3) K/uL Towner # (Auto) 0.8 (0.0-0.8) K/uL Eos # (Auto) 0.2 (0.0-0.7) K/uL Baso # (Auto) 0.1 (0.0-0.2) K/uL PT 14.3 H (9.7-12.2) SECONDS INR 1.3 APTT 126 H* D (21-34) SECONDS Fibrinogen 339 (200-400) mg/dL Sodium 139 (132-148) mmol/L Potassium 4.1 (3.6-5.2) mmol/L Chloride 109 H (98-107) mmol/L Carbon Dioxide 21 L (22-30) mmol/L Anion Gap 14 (10-20) BUN 15 (9-20) mg/dL Creatinine 0.9 (0.8-1.5) mg/dL Est GFR ( Amer) > 60 Est GFR (Non-Af Amer) > 60 Random Glucose 95 (75-110) mg/dL Calcium 8.0 L (8.6-10.4) mg/dl Phosphorus 3.4 (2.5-4.5) mg/dL Magnesium 1.8 (1.6-2.3) mg/dL Total Bilirubin 0.7 (0.2-1.3) mg/dL AST 30 (17-59) U/L ALT 32 (21-72) U/L Alkaline Phosphatase 82 (38-126) U/L Total Creatine Kinase (55-170) U/L CK-MB (Mass) (0.0-3.38) ng/mL Troponin I (0.00-0.120) ng/mL Total Protein 6.8 (6.3-8.3) g/dL Albumin 3.1 L (3.5-5.0) g/dL Globulin 3.6 (2.2-3.9) gm/dL Albumin/Globulin Ratio 0.9 L (1.0-2.1) 05/31/17 05/31/17 05/31/17 Range/Units 23:13 23:13 23:13 WBC 9.8 (4.8-10.8) K/uL RBC 4.49 (4.40-5.90) Mil/uL Hgb 13.6 (12.0-18.0) g/dL Hct 39.6 (35.0-51.0) % MCV 88.1 (80.0-94.0) fL MCH 30.2 (27.0-31.0) pg MCHC 34.3 (33.0-37.0) g/dL RDW 13.5 (11.5-14.5) % Plt Count 165 (130-400) K/uL MPV 8.5 (7.2-11.7) fL Neut % (Auto) (50.0-75.0) % Lymph % (Auto) (20.0-40.0) % Towner % (Auto) (0.0-10.0) % Eos % (Auto) (0.0-4.0) % Baso % (Auto) (0.0-2.0) % Neut # (Auto) (1.8-7.0) K/uL Lymph # (Auto) (1.0-4.3) K/uL Towner # (Auto) (0.0-0.8) K/uL Eos # (Auto) (0.0-0.7) K/uL Baso # (Auto) (0.0-0.2) K/uL PT 14.5 H (9.7-12.2) SECONDS INR 1.3 APTT 136 H* D (21-34) SECONDS Fibrinogen 332 (200-400) mg/dL Sodium 139 (132-148) mmol/L Potassium 3.7 (3.6-5.2) mmol/L Chloride 108 H (98-107) mmol/L Carbon Dioxide 22 (22-30) mmol/L Anion Gap 12 (10-20) BUN 15 (9-20) mg/dL Creatinine 0.8 (0.8-1.5) mg/dL Est GFR ( Amer) > 60 Est GFR (Non-Af Amer) > 60 Random Glucose 103 (75-110) mg/dL Calcium 8.0 L (8.6-10.4) mg/dl Phosphorus (2.5-4.5) mg/dL Magnesium (1.6-2.3) mg/dL Total Bilirubin (0.2-1.3) mg/dL AST (17-59) U/L ALT (21-72) U/L Alkaline Phosphatase (38-126) U/L Total Creatine Kinase (55-170) U/L CK-MB (Mass) (0.0-3.38) ng/mL Troponin I (0.00-0.120) ng/mL Total Protein (6.3-8.3) g/dL Albumin (3.5-5.0) g/dL Globulin (2.2-3.9) gm/dL Albumin/Globulin Ratio (1.0-2.1) 05/31/17 05/31/17 05/31/17 Range/Units 16:07 15:02 15:02 WBC 10.1 (4.8-10.8) K/uL RBC 4.84 (4.40-5.90) Mil/uL Hgb 14.5 (12.0-18.0) g/dL Hct 42.2 (35.0-51.0) % MCV 87.2 (80.0-94.0) fL MCH 30.0 (27.0-31.0) pg MCHC 34.4 (33.0-37.0) g/dL RDW 13.5 (11.5-14.5) % Plt Count 179 (130-400) K/uL MPV 8.4 (7.2-11.7) fL Neut % (Auto) (50.0-75.0) % Lymph % (Auto) (20.0-40.0) % Towner % (Auto) (0.0-10.0) % Eos % (Auto) (0.0-4.0) % Baso % (Auto) (0.0-2.0) % Neut # (Auto) (1.8-7.0) K/uL Lymph # (Auto) (1.0-4.3) K/uL Towner # (Auto) (0.0-0.8) K/uL Eos # (Auto) (0.0-0.7) K/uL Baso # (Auto) (0.0-0.2) K/uL PT 14.0 H (9.7-12.2) SECONDS INR 1.2 APTT 71 H D (21-34) SECONDS Fibrinogen 367 (200-400) mg/dL Sodium (132-148) mmol/L Potassium (3.6-5.2) mmol/L Chloride (98-107) mmol/L Carbon Dioxide (22-30) mmol/L Anion Gap (10-20) BUN (9-20) mg/dL Creatinine (0.8-1.5) mg/dL Est GFR ( Amer) Est GFR (Non-Af Amer) Random Glucose (75-110) mg/dL Calcium (8.6-10.4) mg/dl Phosphorus (2.5-4.5) mg/dL Magnesium (1.6-2.3) mg/dL Total Bilirubin (0.2-1.3) mg/dL AST (17-59) U/L ALT (21-72) U/L Alkaline Phosphatase (38-126) U/L Total Creatine Kinase 88 (55-170) U/L CK-MB (Mass) 4.84 H (0.0-3.38) ng/mL Troponin I 0.7040 H* (0.00-0.120) ng/mL Total Protein (6.3-8.3) g/dL Albumin (3.5-5.0) g/dL Globulin (2.2-3.9) gm/dL Albumin/Globulin Ratio (1.0-2.1) 05/31/17 05/31/17 Range/Units 15:02 11:55 WBC (4.8-10.8) K/uL RBC (4.40-5.90) Mil/uL Hgb (12.0-18.0) g/dL Hct (35.0-51.0) % MCV (80.0-94.0) fL MCH (27.0-31.0) pg MCHC (33.0-37.0) g/dL RDW (11.5-14.5) % Plt Count (130-400) K/uL MPV (7.2-11.7) fL Neut % (Auto) (50.0-75.0) % Lymph % (Auto) (20.0-40.0) % Towner % (Auto) (0.0-10.0) % Eos % (Auto) (0.0-4.0) % Baso % (Auto) (0.0-2.0) % Neut # (Auto) (1.8-7.0) K/uL Lymph # (Auto) (1.0-4.3) K/uL Towner # (Auto) (0.0-0.8) K/uL Eos # (Auto) (0.0-0.7) K/uL Baso # (Auto) (0.0-0.2) K/uL PT (9.7-12.2) SECONDS INR APTT 99 H D (21-34) SECONDS Fibrinogen (200-400) mg/dL Sodium 141 (132-148) mmol/L Potassium 3.9 (3.6-5.2) mmol/L Chloride 108 H (98-107) mmol/L Carbon Dioxide 21 L (22-30) mmol/L Anion Gap 16 (10-20) BUN 15 (9-20) mg/dL Creatinine 0.8 (0.8-1.5) mg/dL Est GFR ( Amer) > 60 Est GFR (Non-Af Amer) > 60 Random Glucose 106 (75-110) mg/dL Calcium 8.3 L (8.6-10.4) mg/dl Phosphorus (2.5-4.5) mg/dL Magnesium (1.6-2.3) mg/dL Total Bilirubin (0.2-1.3) mg/dL AST (17-59) U/L ALT (21-72) U/L Alkaline Phosphatase (38-126) U/L Total Creatine Kinase (55-170) U/L CK-MB (Mass) (0.0-3.38) ng/mL Troponin I (0.00-0.120) ng/mL Total Protein (6.3-8.3) g/dL Albumin (3.5-5.0) g/dL Globulin (2.2-3.9) gm/dL Albumin/Globulin Ratio (1.0-2.1) Laboratory Results - last 24 hr 05/31/17 05/31/17 05/31/17 11:55 15:02 15:02 WBC 10.1 RBC 4.84 Hgb 14.5 Hct 42.2 MCV 87.2 MCH 30.0 MCHC 34.4 RDW 13.5 Plt Count 179 MPV 8.4 Neut % (Auto) Lymph % (Auto) Towner % (Auto) Eos % (Auto) Baso % (Auto) Neut # (Auto) Lymph # (Auto) Towner # (Auto) Eos # (Auto) Baso # (Auto) PT INR APTT 99 H D Fibrinogen Sodium 141 Potassium 3.9 Chloride 108 H Carbon Dioxide 21 L Anion Gap 16 BUN 15 Creatinine 0.8 Est GFR ( Amer) > 60 Est GFR (Non-Af Amer) > 60 Random Glucose 106 Calcium 8.3 L Phosphorus Magnesium Total Bilirubin AST ALT Alkaline Phosphatase Total Creatine Kinase CK-MB (Mass) Troponin I Total Protein Albumin Globulin Albumin/Globulin Ratio 05/31/17 05/31/17 05/31/17 15:02 16:07 23:13 WBC RBC Hgb Hct MCV MCH MCHC RDW Plt Count MPV Neut % (Auto) Lymph % (Auto) Towner % (Auto) Eos % (Auto) Baso % (Auto) Neut # (Auto) Lymph # (Auto) Towner # (Auto) Eos # (Auto) Baso # (Auto) PT 14.0 H INR 1.2 APTT 71 H D Fibrinogen 367 Sodium 139 Potassium 3.7 Chloride 108 H Carbon Dioxide 22 Anion Gap 12 BUN 15 Creatinine 0.8 Est GFR ( Amer) > 60 Est GFR (Non-Af Amer) > 60 Random Glucose 103 Calcium 8.0 L Phosphorus Magnesium Total Bilirubin AST ALT Alkaline Phosphatase Total Creatine Kinase 88 CK-MB (Mass) 4.84 H Troponin I 0.7040 H* Total Protein Albumin Globulin Albumin/Globulin Ratio 05/31/17 05/31/17 06/01/17 23:13 23:13 07:08 WBC 9.8 9.2 RBC 4.49 4.49 Hgb 13.6 13.5 Hct 39.6 39.3 MCV 88.1 87.5 MCH 30.2 30.2 MCHC 34.3 34.4 RDW 13.5 13.6 Plt Count 165 164 MPV 8.5 8.8 Neut % (Auto) 67.9 Lymph % (Auto) 19.9 L Towner % (Auto) 8.6 Eos % (Auto) 2.5 Baso % (Auto) 1.1 Neut # (Auto) 6.3 Lymph # (Auto) 1.8 Towner # (Auto) 0.8 Eos # (Auto) 0.2 Baso # (Auto) 0.1 PT 14.5 H INR 1.3 APTT 136 H* D Fibrinogen 332 Sodium Potassium Chloride Carbon Dioxide Anion Gap BUN Creatinine Est GFR ( Amer) Est GFR (Non-Af Amer) Random Glucose Calcium Phosphorus Magnesium Total Bilirubin AST ALT Alkaline Phosphatase Total Creatine Kinase CK-MB (Mass) Troponin I Total Protein Albumin Globulin Albumin/Globulin Ratio 06/01/17 06/01/17 07:08 07:08 WBC RBC Hgb Hct MCV MCH MCHC RDW Plt Count MPV Neut % (Auto) Lymph % (Auto) Towner % (Auto) Eos % (Auto) Baso % (Auto) Neut # (Auto) Lymph # (Auto) Towner # (Auto) Eos # (Auto) Baso # (Auto) PT 14.3 H INR 1.3 APTT 126 H* D Fibrinogen 339 Sodium 139 Potassium 4.1 Chloride 109 H Carbon Dioxide 21 L Anion Gap 14 BUN 15 Creatinine 0.9 Est GFR ( Amer) > 60 Est GFR (Non-Af Amer) > 60 Random Glucose 95 Calcium 8.0 L Phosphorus 3.4 Magnesium 1.8 Total Bilirubin 0.7 AST 30 ALT 32 Alkaline Phosphatase 82 Total Creatine Kinase CK-MB (Mass) Troponin I Total Protein 6.8 Albumin 3.1 L Globulin 3.6 Albumin/Globulin Ratio 0.9 L Fingerstick Blood Sugar Results: 115 Critical Care Progress Note - Nutrition Nutrition: Nutrition Category Date Time Status Heart Healthy Diet [DIET] Diets 05/30/17 Breakfast Active Assessment/Plan - Assessment and Plan (Free Text) Assessment: Patient is a 62 year old male with past medical history of Left lower extremity DVT 4 years ago, was on Coumadin for 3 months at that time, presented to the ED with worsening shortness of breath. Found to have Submassive pulmonary embolism. Neurology: -Patient is AAOx3 -Admitted to the ICU for closer monitoring Cardiology: -S/P EKOS with direct thrombolysis for submassive PE by IR yesterday -Will be going for second part of procedure today -Patient is on heparin drip peripherally -Heparin and altepase infusing via groin catheter -Echo ordered, f.u read -Venous duplex completed, negative for DVT bilaterally -Troponins 0.1620 -> 1.570 -> 0.7040 -Cardiology consulted, Dr Whitaker, help appreciated Respiratory: -CT angio showed acute pulmonary embolism with large clot burden. Elevated RV/ LV ratio indication right ventricular strain, small hiatal hernia, Mosaic perfusion abnormality. May be related to intrapulmonary shunting secondary to thrombosis (see full report) -Patient is currently on heparin drip -Received Tpa 10mg x 1 on admission, patient was apprehensive about receiving a larger dose -s/p EKOS direct thrombolytic therapy for submassive PE by IR yesterday -Heparin and altepase infusing via groin catheter -Pulmonary on consult, Dr Jang, help appreciated Renal: -No acute issues at this time Endocrine: -No acute issues at this time Infectious Disease: -No acute issues at this time Heme/Onc: -Patient states to his knowledge, unsure why he got the DVT 4 year ago -Heme/Onc, Dr Magaña on consult, help appreciated -F/U Factor V, Protein C, Protein S levels GI/DVT ppx -Protonix 40mg PO daily -Heparin drip <Ag Jang S - Last Filed: 06/01/17 17:33> CCU Objective - Vital Signs / Intake & Output Vital Signs (Last 4 hours): Vital Signs Pulse Resp BP Pulse Ox 06/01/17 16:39 82 20 133/86 93 L 06/01/17 16:30 83 21 96 06/01/17 16:15 69 22 92 L 06/01/17 16:01 75 15 06/01/17 15:45 69 95 06/01/17 15:30 69 16 94 L 06/01/17 15:15 74 18 94 L 06/01/17 15:00 70 17 94 L 06/01/17 14:40 70 14 143/82 94 L 06/01/17 14:00 72 16 158/90 H 93 L 06/01/17 13:45 74 21 93 L 06/01/17 13:37 77 17 158/90 H 96 Intake and Output (Last 8hrs): Intake & Output 06/01/17 06/01/17 06/01/17 06:59 14:59 22:59 Intake Total 1728.5 886.4 395.7 Output Total 5229 286 0818 Balance 528.5 486.4 -604.3 Weight 187 lb 8 oz Intake: IV 125 125 Intake, IV Amount 1603.5 401.4 35.7 Right Antecubital 900 200 Right femoral 1 45 10 Right femoral 2 225 50 Right femoral 3 315 70 Rt AC-y port 118.5 71.4 35.7 Oral 360 360 Output: Urine 4683 [id number] 9876 Urethral (Wilde) 4737 134 2331 - Medications Active Medications: Active Medications Generic Name Dose Route Start Last Admin Trade Name Freq PRN Reason Stop Dose Admin Heparin Sodium/Sodium Chloride 25,000 units in 250 mls @ 18.711 mls/hr 01:36 06/01/17 12:22 Heparin 54399 Units/250ml 1/2 Normal Saline IV 14 units/kg/hr .[id number] PRN 11.907 mls/hr ADJUST RATE PER PROTOCOL Administration Protocol 22 UNITS/KG/HR Pantoprazole Sodium 40 mg 06/01/17 12:00 06/01/17 11:23 Protonix Ec Tab PO 40 mg DAILY KAVITHA Administration - Patient Studies Lab Studies: Microbiology Studies 05/31/17 00:05 MRSA Culture (Admit) - Final Nose MRSA DETECTED Lab Studies 06/01/17 06/01/17 06/01/17 Range/Units 15:58 15:58 15:58 WBC 8.2 (4.8-10.8) K/uL RBC 4.64 (4.40-5.90) Mil/uL Hgb 13.8 (12.0-18.0) g/dL Hct 40.8 (35.0-51.0) % MCV 87.8 (80.0-94.0) fL MCH 29.8 (27.0-31.0) pg MCHC 34.0 (33.0-37.0) g/dL RDW 13.4 (11.5-14.5) % Plt Count 174 (130-400) K/uL MPV 8.8 (7.2-11.7) fL Neut % (Auto) (50.0-75.0) % Lymph % (Auto) (20.0-40.0) % Towner % (Auto) (0.0-10.0) % Eos % (Auto) (0.0-4.0) % Baso % (Auto) (0.0-2.0) % Neut # (Auto) (1.8-7.0) K/uL Lymph # (Auto) (1.0-4.3) K/uL Towner # (Auto) (0.0-0.8) K/uL Eos # (Auto) (0.0-0.7) K/uL Baso # (Auto) (0.0-0.2) K/uL PT 13.9 H (9.7-12.2) SECONDS INR 1.2 APTT 47 H D (21-34) SECONDS Fibrinogen 420 H (200-400) mg/dL Sodium 140 (132-148) mmol/L Potassium 3.9 (3.6-5.2) mmol/L Chloride 107 (98-107) mmol/L Carbon Dioxide 23 (22-30) mmol/L Anion Gap 13 (10-20) BUN 14 (9-20) mg/dL Creatinine 0.9 (0.8-1.5) mg/dL Est GFR ( Amer) > 60 Est GFR (Non-Af Amer) > 60 Random Glucose 100 (75-110) mg/dL Calcium 8.6 (8.6-10.4) mg/dl Phosphorus (2.5-4.5) mg/dL Magnesium (1.6-2.3) mg/dL Total Bilirubin (0.2-1.3) mg/dL AST (17-59) U/L ALT (21-72) U/L Alkaline Phosphatase (38-126) U/L Total Protein (6.3-8.3) g/dL Albumin (3.5-5.0) g/dL Globulin (2.2-3.9) gm/dL Albumin/Globulin Ratio (1.0-2.1) 06/01/17 06/01/17 06/01/17 Range/Units 07:08 07:08 07:08 WBC 9.2 (4.8-10.8) K/uL RBC 4.49 (4.40-5.90) Mil/uL Hgb 13.5 (12.0-18.0) g/dL Hct 39.3 (35.0-51.0) % MCV 87.5 (80.0-94.0) fL MCH 30.2 (27.0-31.0) pg MCHC 34.4 (33.0-37.0) g/dL RDW 13.6 (11.5-14.5) % Plt Count 164 (130-400) K/uL MPV 8.8 (7.2-11.7) fL Neut % (Auto) 67.9 (50.0-75.0) % Lymph % (Auto) 19.9 L (20.0-40.0) % Towner % (Auto) 8.6 (0.0-10.0) % Eos % (Auto) 2.5 (0.0-4.0) % Baso % (Auto) 1.1 (0.0-2.0) % Neut # (Auto) 6.3 (1.8-7.0) K/uL Lymph # (Auto) 1.8 (1.0-4.3) K/uL Towner # (Auto) 0.8 (0.0-0.8) K/uL Eos # (Auto) 0.2 (0.0-0.7) K/uL Baso # (Auto) 0.1 (0.0-0.2) K/uL PT 14.3 H (9.7-12.2) SECONDS INR 1.3 APTT 126 H* D (21-34) SECONDS Fibrinogen 339 (200-400) mg/dL Sodium 139 (132-148) mmol/L Potassium 4.1 (3.6-5.2) mmol/L Chloride 109 H (98-107) mmol/L Carbon Dioxide 21 L (22-30) mmol/L Anion Gap 14 (10-20) BUN 15 (9-20) mg/dL Creatinine 0.9 (0.8-1.5) mg/dL Est GFR ( Amer) > 60 Est GFR (Non-Af Amer) > 60 Random Glucose 95 (75-110) mg/dL Calcium 8.0 L (8.6-10.4) mg/dl Phosphorus 3.4 (2.5-4.5) mg/dL Magnesium 1.8 (1.6-2.3) mg/dL Total Bilirubin 0.7 (0.2-1.3) mg/dL AST 30 (17-59) U/L ALT 32 (21-72) U/L Alkaline Phosphatase 82 (38-126) U/L Total Protein 6.8 (6.3-8.3) g/dL Albumin 3.1 L (3.5-5.0) g/dL Globulin 3.6 (2.2-3.9) gm/dL Albumin/Globulin Ratio 0.9 L (1.0-2.1) 05/31/17 05/31/17 05/31/17 Range/Units 23:13 23:13 23:13 WBC 9.8 (4.8-10.8) K/uL RBC 4.49 (4.40-5.90) Mil/uL Hgb 13.6 (12.0-18.0) g/dL Hct 39.6 (35.0-51.0) % MCV 88.1 (80.0-94.0) fL MCH 30.2 (27.0-31.0) pg MCHC 34.3 (33.0-37.0) g/dL RDW 13.5 (11.5-14.5) % Plt Count 165 (130-400) K/uL MPV 8.5 (7.2-11.7) fL Neut % (Auto) (50.0-75.0) % Lymph % (Auto) (20.0-40.0) % Towner % (Auto) (0.0-10.0) % Eos % (Auto) (0.0-4.0) % Baso % (Auto) (0.0-2.0) % Neut # (Auto) (1.8-7.0) K/uL Lymph # (Auto) (1.0-4.3) K/uL Towner # (Auto) (0.0-0.8) K/uL Eos # (Auto) (0.0-0.7) K/uL Baso # (Auto) (0.0-0.2) K/uL PT 14.5 H (9.7-12.2) SECONDS INR 1.3 APTT 136 H* D (21-34) SECONDS Fibrinogen 332 (200-400) mg/dL Sodium 139 (132-148) mmol/L Potassium 3.7 (3.6-5.2) mmol/L Chloride 108 H (98-107) mmol/L Carbon Dioxide 22 (22-30) mmol/L Anion Gap 12 (10-20) BUN 15 (9-20) mg/dL Creatinine 0.8 (0.8-1.5) mg/dL Est GFR ( Amer) > 60 Est GFR (Non-Af Amer) > 60 Random Glucose 103 (75-110) mg/dL Calcium 8.0 L (8.6-10.4) mg/dl Phosphorus (2.5-4.5) mg/dL Magnesium (1.6-2.3) mg/dL Total Bilirubin (0.2-1.3) mg/dL AST (17-59) U/L ALT (21-72) U/L Alkaline Phosphatase (38-126) U/L Total Protein (6.3-8.3) g/dL Albumin (3.5-5.0) g/dL Globulin (2.2-3.9) gm/dL Albumin/Globulin Ratio (1.0-2.1) Laboratory Results - last 24 hr 05/31/17 05/31/17 05/31/17 23:13 23:13 23:13 WBC 9.8 RBC 4.49 Hgb 13.6 Hct 39.6 MCV 88.1 MCH 30.2 MCHC 34.3 RDW 13.5 Plt Count 165 MPV 8.5 Neut % (Auto) Lymph % (Auto) Towner % (Auto) Eos % (Auto) Baso % (Auto) Neut # (Auto) Lymph # (Auto) Towner # (Auto) Eos # (Auto) Baso # (Auto) PT 14.5 H INR 1.3 APTT 136 H* D Fibrinogen 332 Sodium 139 Potassium 3.7 Chloride 108 H Carbon Dioxide 22 Anion Gap 12 BUN 15 Creatinine 0.8 Est GFR ( Amer) > 60 Est GFR (Non-Af Amer) > 60 Random Glucose 103 Calcium 8.0 L Phosphorus Magnesium Total Bilirubin AST ALT Alkaline Phosphatase Total Protein Albumin Globulin Albumin/Globulin Ratio 06/01/17 06/01/17 06/01/17 07:08 07:08 07:08 WBC 9.2 RBC 4.49 Hgb 13.5 Hct 39.3 MCV 87.5 MCH 30.2 MCHC 34.4 RDW 13.6 Plt Count 164 MPV 8.8 Neut % (Auto) 67.9 Lymph % (Auto) 19.9 L Towner % (Auto) 8.6 Eos % (Auto) 2.5 Baso % (Auto) 1.1 Neut # (Auto) 6.3 Lymph # (Auto) 1.8 Towner # (Auto) 0.8 Eos # (Auto) 0.2 Baso # (Auto) 0.1 PT 14.3 H INR 1.3 APTT 126 H* D Fibrinogen 339 Sodium 139 Potassium 4.1 Chloride 109 H Carbon Dioxide 21 L Anion Gap 14 BUN 15 Creatinine 0.9 Est GFR ( Amer) > 60 Est GFR (Non-Af Amer) > 60 Random Glucose 95 Calcium 8.0 L Phosphorus 3.4 Magnesium 1.8 Total Bilirubin 0.7 AST 30 ALT 32 Alkaline Phosphatase 82 Total Protein 6.8 Albumin 3.1 L Globulin 3.6 Albumin/Globulin Ratio 0.9 L 06/01/17 06/01/17 06/01/17 15:58 15:58 15:58 WBC 8.2 RBC 4.64 Hgb 13.8 Hct 40.8 MCV 87.8 MCH 29.8 MCHC 34.0 RDW 13.4 Plt Count 174 MPV 8.8 Neut % (Auto) Lymph % (Auto) Towner % (Auto) Eos % (Auto) Baso % (Auto) Neut # (Auto) Lymph # (Auto) Towner # (Auto) Eos # (Auto) Baso # (Auto) PT 13.9 H INR 1.2 APTT 47 H D Fibrinogen 420 H Sodium 140 Potassium 3.9 Chloride 107 Carbon Dioxide 23 Anion Gap 13 BUN 14 Creatinine 0.9 Est GFR ( Amer) > 60 Est GFR (Non-Af Amer) > 60 Random Glucose 100 Calcium 8.6 Phosphorus Magnesium Total Bilirubin AST ALT Alkaline Phosphatase Total Protein Albumin Globulin Albumin/Globulin Ratio Critical Care Progress Note - Nutrition Nutrition: Nutrition Category Date Time Status Heart Healthy Diet [DIET] Diets 05/30/17 Breakfast Active Attending/Attestation - Attestation I have personally seen and examined this patient.: Yes I have fully participated in the care of the patient.: Yes I have reviewed all pertinent clinical information: Yes Notes (Text): 06/01/17 17:32 patient seen and examined in the intensive care unit. Case discussed with house staff in the morning rounds. S/P EKOS with direct thrombolysis for submassive PE on heparin drip Continue present treatment for now Switch to oral anticoagulant from tomorrow
--- NOTE | 2017-06-01 10:29 | PCM.SURG1 ---
Surgeon's Initial Post Op Note - Surgeon's Notes Surgeon: Cristhian Torres MD Raw Mill Operator: NONE Type of Anesthesia: Local Pre-Operative Diagnosis: Pulmonary embolism s/p catheter directed thrombolysis. Operative Findings: Post thrombectomy pulmonary artery angiogram showed improved flow in the main PA and right and left pulmonary arteries. IVC is unremarkable. Inflow of renal veins noted. Post-Operative Diagnosis: Pulmonary embolism s/p catheter directed thrombolysis. Operation Performed: Pulmonary artery angiogram. Placement of a retrievable IVC filter in the infrarenal IVC. Specimen/Specimens Removed: NONE Estimated Blood Loss: EBL {In ML}: 5 Blood Products Given: N/A Drains Used: No Drains Post-Op Condition: Fair Date of Surgery/Procedure: 06/01/17 Time of Surgery/Procedure: 10:25
--- NOTE | 2017-06-01 10:54 | VASCLAB ---
PROCEDURE: Bilateral Lower Extremity Venous Duplex Exam. HISTORY: Shortness of breath PRIORS: None. TECHNIQUE: Bilateral common femoral, femoral, popliteal and posterior tibial, peroneal and great saphenous veins were evaluated. Flow was assessed with color Doppler, compressibility, assessment of phasic flow and augmentation response. Report prepared by magnetic resonance technologist. FINDINGS: RIGHT: 1. Common Femoral Vein: 1.1. Compressibility - Fully compressible: Thrombus - None : Flow - Phasic: Augmentation -Normal: Reflux - None. 2. Femoral Vein: (mid to distal views only) proximal thigh covered 2.1. Compressibility - Fully compressible: Thrombus - None : Flow - Phasic: Augmentation -Normal: Reflux - None. 3. Popliteal Vein: 3.1. Compressibility - Fully compressible: Thrombus - None : Flow - Phasic: Augmentation -Normal: Reflux - None. 4. Posterior Tibial Vein: 4.1. Compressibility - Fully compressible: Thrombus - None: Flow - Phasic: Augmentation -Normal: Reflux - None. 5. Peroneal Vein: 5.1. Compressibility - Fully compressible: Thrombus - None: Flow - Phasic: Augmentation -Normal: Reflux - None. 6. Great Saphenous Vein: 6.1. Compressibility - Fully compressible: Thrombus - None: Flow - Phasic: Augmentation - Normal: Reflux - None. LEFT: 1. Common Femoral Vein: 1.1. Compressibility - Fully compressible: Thrombus - None: Flow - Phasic: Augmentation -Normal: Reflux - None. 2. Femoral Vein: 2.1. Compressibility - Fully compressible: Thrombus - None: Flow - Phasic: Augmentation -Normal: Reflux - None. 3. Popliteal Vein: 3.1. Compressibility - Fully compressible: Thrombus - None : Flow - Phasic: Augmentation -Normal: Reflux - None. 4. Posterior Tibial Vein: 4.1. Compressibility - Fully compressible: Thrombus - None: Flow - Phasic: Augmentation -Normal: Reflux - None. 5. Peroneal Vein: 5.1. Compressibility - Fully compressible: Thrombus - None: Flow - Phasic: Augmentation -Normal: Reflux - None. 6. Great Saphenous Vein: 6.1. Compressibility - Fully compressible: Thrombus - None: Flow - Phasic: Augmentation - Normal: Reflux - None. OTHER FINDINGS: IMPRESSION: No evidence of deep or superficial venous thrombosis in bilateral lower extremities, for the imaged veins. Patient with EKOS catheter which affects the waveform analysis in this exam.
--- NOTE | 2017-06-01 10:55 | CP.PCM.CON ---
<Aguilar Beck - Last Filed: 06/01/17 13:56> History of Present Illness - History of Present Illness History of Present Illness: PGY2 Cardiology Consult Note for Dr. Whtiaker This 62 yo male with PMHx of LE DVT (was on anticoagulation for 3 months) - presents to [facility] with progressive SOB worsening upon exertion. Patient recently came back from [place] on flight. Patient states he does not smoke, works on his feet (walks ~3 miles while working). Patient denies any exercise intolerance. Patient denies any family history of clot formation. Cardiology was consulted for NSTEMI with elevated troponins (now down trending) . Pt was found to have submassive PE and is currently on IV heparin and alteplase via peripheral line. He was seen and examined at bedside, s/p removal of EKOS catheter. He is in no acute distress, denies chest pain, palpitations, SOB, abdominal pain, pain at the R groin catheter site, or any additional acute complaints. 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 -HEENT: denies dizziness, change in vision, change in hearing, sore throat, dysphagia, nasal congestion, mucous. -Cardio: denies chest pain, palpitations, orthopnea. -Resp: denies cough, dyspnea, hemoptysis, wheezing, pain on inspiration. -GI: denies abdominal pain, nausea/vomiting, diarrhea/constipation, hematochezia , hematemesis. -: denies dysuria, urinary freq, incontinence, hematuria, change in urinary stream. -MSK: denies back pain, muscle weakness, radiating pain. -Skin: denies itching, rash, lesions. -Neuro: denies confusion, numbness, tingling, focal weakness, radicular pain, syncope. -Psych: denies anxiety, depression, H/I, S/I, hallucinations. Past Patient History - Past Medical History & Family History Past Medical History?: Yes - Past Social History Smoking Status: Never Smoked - CARDIAC Hx Cardiac Disorders: No Hx Circulatory Problems: Yes (L leg DVT 10yrs ago) - PULMONARY Hx Respiratory Disorders: No - NEUROLOGICAL Hx Neurological Disorder: No - HEENT Hx HEENT Problems: No - RENAL Hx Chronic Kidney Disease: No - ENDOCRINE/METABOLIC Hx Endocrine Disorders: No - HEMATOLOGICAL/ONCOLOGICAL Hx Blood Disorders: No - INTEGUMENTARY Hx Dermatological Problems: No - MUSCULOSKELETAL/RHEUMATOLOGICAL Hx Musculoskeletal Disorders: No Hx Falls: No - GASTROINTESTINAL Hx Gastrointestinal Disorders: No - GENITOURINARY/GYNECOLOGICAL Hx Genitourinary Disorders: No - PSYCHIATRIC Hx Psychophysiologic Disorder: No Hx Substance Use: No - SURGICAL HISTORY Hx Surgeries: No - ANESTHESIA Hx Anesthesia: No Meds Allergies/Adverse Reactions: Allergies Allergy/AdvReac Type Severity Reaction Status Date / Time No Known Allergies Allergy Verified 05/30/17 17:58 - Medications Medications: Current Medications Heparin Sodium/Sodium Chloride (Heparin 41210 Units/250ml 1/2 Normal Saline) 25 ,000 units in 250 mls @ 18.711 mls/hr IV .[id number] PRN; Protocol; 22 UNITS/KG/HR PRN Reason: ADJUST RATE PER PROTOCOL Last Titration: 06/01/17 09:00 Dose: 14 units/kg/hr, 11.907 mls/hr Sodium Chloride (Sodium Chloride 0.9%) 1,000 mls @ 35 mls/hr IV .Q24H KAVITHA Last Admin: 05/31/17 14:07 Dose: 35 mls/hr Heparin Sodium/Sodium Chloride (Heparin 26024 Units/250ml 1/2 Normal Saline) 25 ,000 units in 250 mls @ 5 mls/hr IV .Q24H PRN PRN Reason: EKOS Last Admin: 05/31/17 14:53 Dose: 5 mls/hr Alteplase, Recombinant 10 mg/ (Sodium Chloride) 250 mls @ 25 mls/hr IV Q10H KAVITHA Pantoprazole Sodium (Protonix Ec Tab) 40 mg PO DAILY KAVITHA Physical Exam - Additional Findings Additional findings: Head: Positive for: Atraumatic, Normocephalic Pupils: Positive for: PERRL Extroacular Muscles: Positive for: EOMI Conjunctiva: Positive for: Normal Mouth: Positive for: Moist Mucous Membranes Neck: Positive for: Normal Range of Motion, JVD (mild JVD) Respiratory/Chest: Positive for: Clear to Auscultation, Good Air Exchange. Negative for: Respiratory Distress Cardiovascular: Positive for: Regular Rate and Rhythm, Normal S1, S2 Abdomen: Positive for: Normal Bowel Sounds. Negative for: Tenderness Lower Extremity: Positive for: Edema (Right LE, pitting edema ), NORMAL PULSES ( noted on doppler), Other (right groin access site dressing CDI, minimal drainage , no active bleeding ) Neurological: Positive for: CN II-XII Intact Skin: Positive for: Warm, Dry, Normal Color Psychiatric: Positive for: Alert, Oriented x 3 Results - Vital Signs Recent Vital Signs: Last Vital Signs Temp 98.2 F 06/01/17 08:00 Pulse 78 06/01/17 09:07 Resp 15 06/01/17 09:07 BP 159/87 H 06/01/17 09:07 Pulse Ox 96 06/01/17 09:07 - Labs Result Diagrams: 06/01/17 07:08 06/01/17 07:08 Labs: Laboratory Results - last 24 hr 05/31/17 05/31/17 05/31/17 11:55 15:02 15:02 WBC 10.1 RBC 4.84 Hgb 14.5 Hct 42.2 MCV 87.2 MCH 30.0 MCHC 34.4 RDW 13.5 Plt Count 179 MPV 8.4 Neut % (Auto) Lymph % (Auto) [place] % (Auto) Eos % (Auto) Baso % (Auto) Neut # (Auto) Lymph # (Auto) [place] # (Auto) Eos # (Auto) Baso # (Auto) PT INR APTT 99 H D Fibrinogen Sodium 141 Potassium 3.9 Chloride 108 H Carbon Dioxide 21 L Anion Gap 16 BUN 15 Creatinine 0.8 Est GFR ( Amer) > 60 Est GFR (Non-Af Amer) > 60 Random Glucose 106 Calcium 8.3 L Phosphorus Magnesium Total Bilirubin AST ALT Alkaline Phosphatase Total Creatine Kinase CK-MB (Mass) Troponin I Total Protein Albumin Globulin Albumin/Globulin Ratio 05/31/17 05/31/17 05/31/17 15:02 16:07 23:13 WBC RBC Hgb Hct MCV MCH MCHC RDW Plt Count MPV Neut % (Auto) Lymph % (Auto) [place] % (Auto) Eos % (Auto) Baso % (Auto) Neut # (Auto) Lymph # (Auto) [place] # (Auto) Eos # (Auto) Baso # (Auto) PT 14.0 H INR 1.2 APTT 71 H D Fibrinogen 367 Sodium 139 Potassium 3.7 Chloride 108 H Carbon Dioxide 22 Anion Gap 12 BUN 15 Creatinine 0.8 Est GFR ( Amer) > 60 Est GFR (Non-Af Amer) > 60 Random Glucose 103 Calcium 8.0 L Phosphorus Magnesium Total Bilirubin AST ALT Alkaline Phosphatase Total Creatine Kinase 88 CK-MB (Mass) 4.84 H Troponin I 0.7040 H* Total Protein Albumin Globulin Albumin/Globulin Ratio 05/31/17 05/31/17 06/01/17 23:13 23:13 07:08 WBC 9.8 9.2 RBC 4.49 4.49 Hgb 13.6 13.5 Hct 39.6 39.3 MCV 88.1 87.5 MCH 30.2 30.2 MCHC 34.3 34.4 RDW 13.5 13.6 Plt Count 165 164 MPV 8.5 8.8 Neut % (Auto) 67.9 Lymph % (Auto) 19.9 L [place] % (Auto) 8.6 Eos % (Auto) 2.5 Baso % (Auto) 1.1 Neut # (Auto) 6.3 Lymph # (Auto) 1.8 [place] # (Auto) 0.8 Eos # (Auto) 0.2 Baso # (Auto) 0.1 PT 14.5 H INR 1.3 APTT 136 H* D Fibrinogen 332 Sodium Potassium Chloride Carbon Dioxide Anion Gap BUN Creatinine Est GFR ( Amer) Est GFR (Non-Af Amer) Random Glucose Calcium Phosphorus Magnesium Total Bilirubin AST ALT Alkaline Phosphatase Total Creatine Kinase CK-MB (Mass) Troponin I Total Protein Albumin Globulin Albumin/Globulin Ratio 06/01/17 06/01/17 07:08 07:08 WBC RBC Hgb Hct MCV MCH MCHC RDW Plt Count MPV Neut % (Auto) Lymph % (Auto) [place] % (Auto) Eos % (Auto) Baso % (Auto) Neut # (Auto) Lymph # (Auto) [place] # (Auto) Eos # (Auto) Baso # (Auto) PT 14.3 H INR 1.3 APTT 126 H* D Fibrinogen 339 Sodium 139 Potassium 4.1 Chloride 109 H Carbon Dioxide 21 L Anion Gap 14 BUN 15 Creatinine 0.9 Est GFR ( Amer) > 60 Est GFR (Non-Af Amer) > 60 Random Glucose 95 Calcium 8.0 L Phosphorus 3.4 Magnesium 1.8 Total Bilirubin 0.7 AST 30 ALT 32 Alkaline Phosphatase 82 Total Creatine Kinase CK-MB (Mass) Troponin I Total Protein 6.8 Albumin 3.1 L Globulin 3.6 Albumin/Globulin Ratio 0.9 L Assessment & Plan - Assessment and Plan (Free Text) Assessment: Patient is a 62 year old male with past medical history of Left lower extremity DVT 4 years ago, was on coumadin for 3 months at that time, presented to the ED with worsening shortness of breath on 05/30/17. Found to have Submassive pulmonary embolism. NSTEMI 06/01: Plan for echo tomorrow 06/02 BP 159/87, HR 78 Will continue to follow. Ddimer 4358 Trop (+) at 0.1620 -> 1.570 -> 0.7040 (downtrending) CKMB 4.84 EKG showed sinus tach at 120 f/u Venous duplex (awaiting official read) Pulmonary Embolism -EKOS catheter removed today, pt tolerated procedure. -Pt is on heparin drip and alteplase via peripheral cath -anti-coagulation management per Dr. Jang and Dr. Magaña -f/u hypercoagulable workup Case Discussed with Dr. Sherman Beck, PGY2 - Date & Time Date: 06/01/17 Time: 10:47 <Pancho Whitaker - Last Filed: 06/02/17 09:05> Meds - Medications Medications: Current Medications Heparin Sodium/Sodium Chloride (Heparin 37350 Units/250ml 1/2 Normal Saline) 25 ,000 units in 250 mls @ 18.711 mls/hr IV .[id number] PRN; Protocol; 22 UNITS/KG/HR PRN Reason: ADJUST RATE PER PROTOCOL Last Titration: 06/01/17 22:00 Dose: 16 units/kg/hr, 13.608 mls/hr Pantoprazole Sodium (Protonix Ec Tab) 40 mg PO DAILY KAVITHA Last Admin: 06/01/17 11:23 Dose: 40 mg Results - Vital Signs Recent Vital Signs: Last Vital Signs Temp 98.5 F 06/02/17 04:00 Pulse 80 06/02/17 09:00 Resp 22 06/02/17 09:00 BP 159/78 H 06/02/17 08:40 Pulse Ox 93 L 06/02/17 09:00 - Labs Result Diagrams: 06/02/17 06:24 06/02/17 06:24 Labs: Laboratory Results - last 24 hr 06/01/17 06/01/17 06/01/17 15:58 15:58 15:58 WBC 8.2 RBC 4.64 Hgb 13.8 Hct 40.8 MCV 87.8 MCH 29.8 MCHC 34.0 RDW 13.4 Plt Count 174 MPV 8.8 Neut % (Auto) Lymph % (Auto) [place] % (Auto) Eos % (Auto) Baso % (Auto) Neut # (Auto) Lymph # (Auto) [place] # (Auto) Eos # (Auto) Baso # (Auto) PT 13.9 H INR 1.2 APTT 47 H D Fibrinogen 420 H Sodium 140 Potassium 3.9 Chloride 107 Carbon Dioxide 23 Anion Gap 13 BUN 14 Creatinine 0.9 Est GFR ( Amer) > 60 Est GFR (Non-Af Amer) > 60 Random Glucose 100 Calcium 8.6 Phosphorus Magnesium Total Bilirubin AST ALT Alkaline Phosphatase Total Protein Albumin Globulin Albumin/Globulin Ratio 06/01/17 06/02/17 06/02/17 21:40 06:24 06:24 WBC 8.3 RBC 4.66 Hgb 14.1 Hct 41.1 MCV 88.3 MCH 30.3 MCHC 34.3 RDW 13.7 Plt Count 174 MPV 10.3 Neut % (Auto) 63.3 Lymph % (Auto) 21.2 [place] % (Auto) 10.0 Eos % (Auto) 4.4 H Baso % (Auto) 1.1 Neut # (Auto) 5.3 Lymph # (Auto) 1.8 [place] # (Auto) 0.8 Eos # (Auto) 0.4 Baso # (Auto) 0.1 PT INR APTT 44 H Fibrinogen Sodium 140 Potassium 3.8 Chloride 106 Carbon Dioxide 22 Anion Gap 16 BUN 23 H Creatinine 1.0 Est GFR ( Amer) > 60 Est GFR (Non-Af Amer) > 60 Random Glucose 93 Calcium 8.5 L Phosphorus 3.5 Magnesium 1.9 Total Bilirubin 0.5 AST 28 ALT 36 Alkaline Phosphatase 79 Total Protein 6.9 Albumin 3.4 L Globulin 3.5 Albumin/Globulin Ratio 1.0 06/02/17 06:24 WBC RBC Hgb Hct MCV MCH MCHC RDW Plt Count MPV Neut % (Auto) Lymph % (Auto) [place] % (Auto) Eos % (Auto) Baso % (Auto) Neut # (Auto) Lymph # (Auto) [place] # (Auto) Eos # (Auto) Baso # (Auto) PT INR APTT 51 H D Fibrinogen Sodium Potassium Chloride Carbon Dioxide Anion Gap BUN Creatinine Est GFR ( Amer) Est GFR (Non-Af Amer) Random Glucose Calcium Phosphorus Magnesium Total Bilirubin AST ALT Alkaline Phosphatase Total Protein Albumin Globulin Albumin/Globulin Ratio Assessment & Plan - Assessment and Plan (Free Text) Plan: Patient seen and evaluated personally by me Plan of care d/w the medical aide and as documented
[2017-06-01] MEDS: Pantoprazole 40 mg EC Tab PO SCH (11:23)
--- NOTE | 2017-06-01 12:15 | CP.PCM.CON ---
History of Present Illness - History of Present Illness History of Present Illness: 62 year old male with a history of LLE DVT s/p 3 months anticoagulation in 2013 , admitted with saddle PE s/p TPA, catheter directed thrombolysis, and IVC filter, on anticoagulation. The patient reports to progressive shortness of breath over 1-2 weeks. He notes it was mild and with exertion but progressed in severity and with minimal exertion. He was brought to the ER and found to have a saddle embolism. LE venous duplex was negative for DVT. He reports to feeling better since his intervention and anticoagulation. His breathing is improved. He denies immobility or trauma. He remains active and was working prior to his hospitalization. Past medical history: DVT Past surgical history: None Family history: Father suddenly at 65, father had bladder cancer Social history: Denies tobacco, alcohol, and illicit drug use. Allergies: NKA Review of systems: All remaining review of systems including HEENT, cardiovascular, respiratory, gastrointestinal, genitourinary, musculoskeletal, dermatologic, neurologic, and psychiatric are negative unless mentioned in the HPI. Past Patient History - Past Medical History & Family History Past Medical History?: Yes - Past Social History Smoking Status: Never Smoked - CARDIAC Hx Cardiac Disorders: No Hx Circulatory Problems: Yes (L leg DVT 10yrs ago) - PULMONARY Hx Respiratory Disorders: No - NEUROLOGICAL Hx Neurological Disorder: No - HEENT Hx HEENT Problems: No - RENAL Hx Chronic Kidney Disease: No - ENDOCRINE/METABOLIC Hx Endocrine Disorders: No - HEMATOLOGICAL/ONCOLOGICAL Hx Blood Disorders: No - INTEGUMENTARY Hx Dermatological Problems: No - MUSCULOSKELETAL/RHEUMATOLOGICAL Hx Musculoskeletal Disorders: No Hx Falls: No - GASTROINTESTINAL Hx Gastrointestinal Disorders: No - GENITOURINARY/GYNECOLOGICAL Hx Genitourinary Disorders: No - PSYCHIATRIC Hx Psychophysiologic Disorder: No Hx Substance Use: No - SURGICAL HISTORY Hx Surgeries: No - ANESTHESIA Hx Anesthesia: No Meds Allergies/Adverse Reactions: Allergies Allergy/AdvReac Type Severity Reaction Status Date / Time No Known Allergies Allergy Verified 05/30/17 17:58 - Medications Medications: Current Medications Heparin Sodium/Sodium Chloride (Heparin 74349 Units/250ml 1/2 Normal Saline) 25 ,000 units in 250 mls @ 18.711 mls/hr IV .[id number] PRN; Protocol; 22 UNITS/KG/HR PRN Reason: ADJUST RATE PER PROTOCOL Last Titration: 06/01/17 09:00 Dose: 14 units/kg/hr, 11.907 mls/hr Pantoprazole Sodium (Protonix Ec Tab) 40 mg PO DAILY KAVITHA Last Admin: 06/01/17 11:23 Dose: 40 mg Physical Exam - Head Exam Head Exam: ATRAUMATIC - Eye Exam Eye Exam: Normal appearance - ENT Exam ENT Exam: Mucous Membranes Dry - Respiratory Exam Respiratory Exam: NORMAL BREATHING PATTERN - Cardiovascular Exam Cardiovascular Exam: +S1, +S2 - GI/Abdominal Exam GI & Abdominal Exam: Normal Bowel Sounds - Extremities Exam Extremities exam: Positive for: normal inspection - Neurological Exam Neurological exam: Oriented x3 - Psychiatric Exam Psychiatric exam: Normal Affect, Normal Mood - Skin Skin Exam: Warm Results - Vital Signs Recent Vital Signs: Last Vital Signs Temp 98.2 F 06/01/17 08:00 Pulse 64 06/01/17 12:06 Resp 16 06/01/17 12:06 BP 142/82 06/01/17 12:07 Pulse Ox 94 L 06/01/17 12:06 - Labs Result Diagrams: 06/02/17 06:24 06/02/17 06:24 Labs: Laboratory Results - last 24 hr 05/31/17 05/31/17 05/31/17 15:02 15:02 15:02 WBC 10.1 RBC 4.84 Hgb 14.5 Hct 42.2 MCV 87.2 MCH 30.0 MCHC 34.4 RDW 13.5 Plt Count 179 MPV 8.4 Neut % (Auto) Lymph % (Auto) [place] % (Auto) Eos % (Auto) Baso % (Auto) Neut # (Auto) Lymph # (Auto) [place] # (Auto) Eos # (Auto) Baso # (Auto) PT 14.0 H INR 1.2 APTT 71 H D Fibrinogen 367 Sodium 141 Potassium 3.9 Chloride 108 H Carbon Dioxide 21 L Anion Gap 16 BUN 15 Creatinine 0.8 Est GFR ( Amer) > 60 Est GFR (Non-Af Amer) > 60 Random Glucose 106 Calcium 8.3 L Phosphorus Magnesium Total Bilirubin AST ALT Alkaline Phosphatase Total Creatine Kinase CK-MB (Mass) Troponin I Total Protein Albumin Globulin Albumin/Globulin Ratio 05/31/17 05/31/17 05/31/17 16:07 23:13 23:13 WBC 9.8 RBC 4.49 Hgb 13.6 Hct 39.6 MCV 88.1 MCH 30.2 MCHC 34.3 RDW 13.5 Plt Count 165 MPV 8.5 Neut % (Auto) Lymph % (Auto) [place] % (Auto) Eos % (Auto) Baso % (Auto) Neut # (Auto) Lymph # (Auto) [place] # (Auto) Eos # (Auto) Baso # (Auto) PT INR APTT Fibrinogen Sodium 139 Potassium 3.7 Chloride 108 H Carbon Dioxide 22 Anion Gap 12 BUN 15 Creatinine 0.8 Est GFR ( Amer) > 60 Est GFR (Non-Af Amer) > 60 Random Glucose 103 Calcium 8.0 L Phosphorus Magnesium Total Bilirubin AST ALT Alkaline Phosphatase Total Creatine Kinase 88 CK-MB (Mass) 4.84 H Troponin I 0.7040 H* Total Protein Albumin Globulin Albumin/Globulin Ratio 05/31/17 06/01/17 06/01/17 23:13 07:08 07:08 WBC 9.2 RBC 4.49 Hgb 13.5 Hct 39.3 MCV 87.5 MCH 30.2 MCHC 34.4 RDW 13.6 Plt Count 164 MPV 8.8 Neut % (Auto) 67.9 Lymph % (Auto) 19.9 L [place] % (Auto) 8.6 Eos % (Auto) 2.5 Baso % (Auto) 1.1 Neut # (Auto) 6.3 Lymph # (Auto) 1.8 [place] # (Auto) 0.8 Eos # (Auto) 0.2 Baso # (Auto) 0.1 PT 14.5 H INR 1.3 APTT 136 H* D Fibrinogen 332 Sodium 139 Potassium 4.1 Chloride 109 H Carbon Dioxide 21 L Anion Gap 14 BUN 15 Creatinine 0.9 Est GFR ( Amer) > 60 Est GFR (Non-Af Amer) > 60 Random Glucose 95 Calcium 8.0 L Phosphorus 3.4 Magnesium 1.8 Total Bilirubin 0.7 AST 30 ALT 32 Alkaline Phosphatase 82 Total Creatine Kinase CK-MB (Mass) Troponin I Total Protein 6.8 Albumin 3.1 L Globulin 3.6 Albumin/Globulin Ratio 0.9 L 06/01/17 07:08 WBC RBC Hgb Hct MCV MCH MCHC RDW Plt Count MPV Neut % (Auto) Lymph % (Auto) [place] % (Auto) Eos % (Auto) Baso % (Auto) Neut # (Auto) Lymph # (Auto) [place] # (Auto) Eos # (Auto) Baso # (Auto) PT 14.3 H INR 1.3 APTT 126 H* D Fibrinogen 339 Sodium Potassium Chloride Carbon Dioxide Anion Gap BUN Creatinine Est GFR ( Amer) Est GFR (Non-Af Amer) Random Glucose Calcium Phosphorus Magnesium Total Bilirubin AST ALT Alkaline Phosphatase Total Creatine Kinase CK-MB (Mass) Troponin I Total Protein Albumin Globulin Albumin/Globulin Ratio Assessment & Plan (1) Saddle embolism of pulmonary artery Assessment and Plan: unprovoked s/p tPA, catheter directed thrombolysis, IVC filter lifelong therapeutic anticoagulation; pt agreeable to outpatient Pradaxa inherited thrombophilia w/u sent Thank you for this interesting consult. Status: Acute
[2017-06-01] MEDS: Heparin25000 units/250ml 1/2NS 25,000 UNITS/250 ML BAG IV PRN (12:22)
[2017-06-01 16:02] LABS: HEMOGLOBIN 13.8 g/dL (12.0-18.0); MEAN CELL VOLUME 87.8 fL (80.0-94.0); MEAN CORPUSCULAR HEMOGLOBIN 29.8 pg (27.0-31.0); MEAN PLATELET VOLUME 8.8 fL (7.2-11.7); RBC 4.64 Mil/uL (4.40-5.90); RED CELL DISTRIBUTION WIDTH 13.4 % (11.5-14.5); WHITE BLOOD COUNT 8.2 K/uL (4.8-10.8)
[2017-06-01 16:18] LABS: BLOOD UREA NITROGEN 14 mg/dL (9-20); CALCIUM 8.6 mg/dl (8.6-10.4); GFR AFRICAN-AMERICAN > 60; GFR NON-AFRICAN AMERICAN > 60
[2017-06-01 16:19] LABS: INR 1.2; PROTHROMBIN TIME 13.9 SECONDS (9.7-12.2)
--- NOTE | 2017-06-01 18:29 | CARD ---
APPROVED REPORT EXAM: Two-dimensional and M-mode echocardiogram with Doppler and color Doppler. Other Information Quality : GoodRhythm : INDICATION Dyspnea Pulmonary Embolism 2D DIMENSIONS IVSd1.1 (0.7-1.1cm)LVDd4.1 (3.9-5.9cm) PWd1.2 (0.7-1.1cm)LVDs2.2 (2.5-4.0cm) FS (%) 46.1 %LVEF (%)65.0 (>50%) M-Mode DIMENSIONS Left Atrium (MM)3.27 (2.5-4.0cm)Aortic Root4.06 (2.2-3.7cm) Aortic Cusp Exc.2.61 (1.5-2.0cm) Mitral Valve MV E Imrmwuiq38.2cm/sMV A Duvsuelk84.0cm/sE/A ratio0.7 TDI E/Lateral E'0.0E/Medial E'0.0 Tricuspid Valve TR Peak [id number]/sTR Peak [id number] LEFT VENTRICLE The left ventricle is normal size. There is normal left ventricular wall thickness. The left ventricular function is normal. The left ventricular ejection fraction is within the normal range. 60% No regional wall motion abnormalities noted. Transmitral Doppler flow pattern is Grade I-abnormal relaxation pattern. No left ventricle thrombus noted on this study. There is no ventricular septal defect visualized. There is no left ventricular aneurysm. There is no mass noted in the left ventricle. RIGHT VENTRICLE The right ventricle is normal size. There is normal right ventricular wall thickness. The right ventricular systolic function is normal. ATRIA The left atrium size is normal. The right atrium size is normal. The interatrial septum is intact with no evidence for an atrial septal defect. AORTIC VALVE The aortic valve is normal in structure and function. Mild aortic regurgitation is present. There is no aortic valvular stenosis. There is no aortic valvular vegetation. MITRAL VALVE The mitral valve is normal in structure and function. There is no evidence of mitral valve prolapse. There is no mitral valve stenosis. There is mild mitral valve regurgitation noted. TRICUSPID VALVE The tricuspid valve is normal in structure and function. There is mild tricuspid valve regurgitation noted. Estiamted PA systolic pressure is 58 mm Hg. There is no tricuspid valve prolapse or vegetation. There is no tricuspid valve stenosis. PULMONIC VALVE The pulmonary valve is normal in structure and function. There is no pulmonic valvular regurgitation. There is no pulmonic valvular stenosis. GREAT VESSELS The aortic root is normal in size. The ascending aorta is normal in size. The pulmonary artery is normal. The IVC is dilated and collapses >50% with inspiration. PERICARDIAL EFFUSION The pericardium appears normal. There is no pleural effusion. <Conclusion> Normal LV systolic function and wall motion. Moderate to severe pulmonary HTN Mild aortic regurgitation is present.
[2017-06-02 06:30] LABS: BASO # 0.1 K/uL (0.0-0.2); BASO % 1.1 % (0.0-2.0); EOS # 0.4 K/uL (0.0-0.7); EOS % 4.4 % (0.0-4.0); HEMOGLOBIN 14.1 g/dL (12.0-18.0); LYMPH # 1.8 K/uL (1.0-4.3); LYMPH % 21.2 % (20.0-40.0); MEAN CELL VOLUME 88.3 fL (80.0-94.0); MEAN CORPUSCULAR HEMOGLOBIN 30.3 pg (27.0-31.0); MEAN CORPUSCULAR HGB CONC 34.3 g/dL (33.0-37.0); MEAN PLATELET VOLUME 10.3 fL (7.2-11.7); MONO # 0.8 K/uL (0.0-0.8); NEUT # 5.3 K/uL (1.8-7.0); NEUT % 63.3 % (50.0-75.0); NRBC % 0.1 % (0.0-2.0); RBC 4.66 Mil/uL (4.40-5.90); RED CELL DISTRIBUTION WIDTH 13.7 % (11.5-14.5); WHITE BLOOD COUNT 8.3 K/uL (4.8-10.8)
[2017-06-02 07:06] LABS: ALBUMIN 3.4 g/dL (3.5-5.0); ALT/SGPT 36 U/L (21-72); AST/SGOT 28 U/L (17-59); BLOOD UREA NITROGEN 23 mg/dL (9-20); CALCIUM 8.5 mg/dl (8.6-10.4); GFR AFRICAN-AMERICAN > 60; GFR NON-AFRICAN AMERICAN > 60
--- NOTE | 2017-06-02 08:15 | CP.PCM.PN ---
Subjective - Date & Time of Evaluation Date of Evaluation: 06/02/17 Time of Evaluation: 08:00 - Subjective Subjective: Patient was seen and examined by me. His family member was present as well - and patient was ok with us discussing together He reports no shortness of breath at rest. He denied chest pain, denied abdominal pain, denied palpitations. He reported no tenderness or pain at the site of the cathter which was removed yesterday. On telemetry his HR was sinus in the 80s. If he remains stable, then hopefully can come out of ICU. Remains on heparin ggt at this time. Objective - Vital Signs/Intake and Output Vital Signs (last 24 hours): Temp Pulse Resp BP Pulse Ox 98.5 F 65 16 139/78 93 L 06/02/17 04:00 06/02/17 07:00 06/02/17 07:00 06/02/17 06:39 06/02/17 07:00 Intake and Output: 06/02/17 06/02/17 06:59 18:59 Intake Total 227.5 Output Total 900 Balance -672.5 - Medications Medications: Current Medications Heparin Sodium/Sodium Chloride (Heparin 26589 Units/250ml 1/2 Normal Saline) 25 ,000 units in 250 mls @ 18.711 mls/hr IV .[id number] PRN; Protocol; 22 UNITS/KG/HR PRN Reason: ADJUST RATE PER PROTOCOL Last Titration: 06/01/17 22:00 Dose: 16 units/kg/hr, 13.608 mls/hr Pantoprazole Sodium (Protonix Ec Tab) 40 mg PO DAILY [facility] Last Admin: 06/01/17 11:23 Dose: 40 mg - Labs Labs: 06/02/17 06:24 06/02/17 06:24 PT 13.9 SECONDS (9.7-12.2) H 06/01/17 15:58 INR 1.2 06/01/17 15:58 APTT 51 SECONDS (21-34) H D 06/02/17 06:24 - Constitutional Appears: Well, Non-toxic, No Acute Distress - Eye Exam Eye Exam: EOMI, Normal appearance - ENT Exam ENT Exam: Mucous Membranes Moist - Respiratory Exam Respiratory Exam: Clear to Ausculation Bilateral, NORMAL BREATHING PATTERN - Cardiovascular Exam Cardiovascular Exam: REGULAR RHYTHM - GI/Abdominal Exam GI & Abdominal Exam: Soft, Normal Bowel Sounds - Neurological Exam Neurological Exam: Alert, Awake, Oriented x3 Neuro motor strength exam: Left Upper Extremity: 5, Right Upper Extremity: 5, Left Lower Extremity: 5, Right Lower Extremity: 5 - Psychiatric Exam Psychiatric exam: Normal Affect, Normal Mood - Skin Skin Exam: Normal Color, Warm Assessment and Plan - Assessment and Plan (Free Text) Assessment: Assessment: 1. Acute on Chronic PE 06/02: Catheter removed, later today repeat echo. He reports doing ok. Maybe can come out of ICU today. It appears he will need life long anticoagulation. 06/01: Doing well. Later will return to [employer] for removal of the EKOS. Per cardiology hold of on echo until tommorow 05/31: Patient overnight did get TPA, however it was a very small dose. The patient did not agree with the recommendations of ICU staff. I spoke with the patient extensively this morning. I also hoa out a picture to help explain to him what was happening. Maybe the patient could benefit from a direct thrombolysis of this clot by interventional cardiology. He remains on a heparin ggt at this time. We are also pending echo as well D-dimer 4358 CTA: acute pulmonary embolism with large clot burder, elevated RV/LV ratio indicating right ventricular strain, small hiatal hernia, mosaic perfusion abnormality, may be related to intrapulmonary shunting secondary to thrombosis. Pending LE dopplers Pending Protein C, S, and factor V leiden Low dose TPA 10mg given (patient refused higher does) 2. Hypoxic Respiratory failure with large A-a gradient 06/02: On room air today and SpO2 95% 05/31: On nasal cannula now. SpO2 still on the low 90s side. -ABG: pH 7.44, pCO2 32, p02 121, HCO3 23.7 3. NSTEMI, right heart strain. 05/31: Troponin climbed to 1.57, heparin ggt. Cardiology evaluation Trop I .1620 -EKG sinus tach at 120bpm 4. Prophylaxis Heparin drip Protonix 40mg ivp q12h
--- NOTE | 2017-06-02 09:57 | SPECPROC ---
Date of procedure: 06/01/2017 Procedure: 1. Pulmonary artery angiogram 2. Placement of retrievable IVC filter in the infrarenal IVC Medications: 8cc lidocaine 1 percent TOTAL CONTRAST: 60 Cubic centimeters Visipaque 320 EBL: 5 cubic centimeters HISTORY: saddle pulmonary embolism, right ventricular strain, follow-up pulmonary artery angiogram following catheter directed thrombolysis. TECHNIQUE: Following informed consent and procedure time-out, the patient placed supine on the procedure table. The existing Ekos thrombolysis catheter and surrounding skin were prepped and draped in the usual sterile fashion. The Ekos catheter was removed over a guidewire and exchanged for a pigtail flush catheter. A pulmonary artery angiogram was performed. Pulmonary angiogram showed significantly improved flow within the right and left main pulmonary artery and segmental branches. The flush catheter was then positioned within the infrarenal IVC and inferior vena cavagram was performed. Inferior vena cavagram between 1 distally. Inflow of both right and left renal veins were noted. A retrievable Option filter was placed within the infrarenal IVC. A guidewire was advanced into the lower segmental pulmonary artery. Guidewires in vascular sheath were removed and hemostasis achieved with manual compression. IMPRESSION: 1. Pulmonary artery angiogram following catheter directed thrombolysis shows significant improved flow within right and left main pulmonary artery and segmental branches. 2. Placement of retrievable IVC within the infrarenal IVC.
[2017-06-02] MEDS: Pantoprazole 40 mg EC Tab PO SCH (10:02)
--- NOTE | 2017-06-02 12:03 | CP.PCM.PN ---
Subjective - Date & Time of Evaluation Date of Evaluation: 06/02/17 Time of Evaluation: 08:00 - Subjective Subjective: PGY2 Cardiology Progress Note for Dr. Whitaker Patient seen and examined at bedside. No acute distress. He reports feeling well , and is tolerating his diet. Denies chest pain, palpitations, SOB, abdominal pain, pain at the R groin catheter site (removed yesterday), or any additional acute complaints. Objective - Vital Signs/Intake and Output Vital Signs (last 24 hours): Temp Pulse Resp BP Pulse Ox 98.4 F 82 17 153/120 H 91 L 06/02/17 08:00 06/02/17 11:00 06/02/17 11:00 06/02/17 10:40 06/02/17 11:00 Intake and Output: 06/02/17 06/02/17 06:59 18:59 Intake Total 227.5 40.5 Output Total 900 750 Balance -672.5 -709.5 - Medications Medications: Current Medications Dabigatran (Pradaxa) 150 mg PO BID [facility] Last Admin: 06/02/17 09:59 Dose: 150 mg Pantoprazole Sodium (Protonix Ec Tab) 40 mg PO DAILY [facility] Last Admin: 06/02/17 10:02 Dose: 40 mg - Labs Labs: 06/02/17 06:24 06/02/17 06:24 PT 13.9 SECONDS (9.7-12.2) H 06/01/17 15:58 INR 1.2 06/01/17 15:58 APTT 51 SECONDS (21-34) H D 06/02/17 06:24 - Additional Findings Additional findings: Head: Positive for: Atraumatic, Normocephalic Pupils: Positive for: PERRL Extroacular Muscles: Positive for: EOMI Conjunctiva: Positive for: Normal Mouth: Positive for: Moist Mucous Membranes Neck: Positive for: Normal Range of Motion, JVD (mild JVD) Respiratory/Chest: Positive for: Clear to Auscultation, Good Air Exchange. Negative for: Respiratory Distress Cardiovascular: Positive for: Regular Rate and Rhythm, Normal S1, S2 Abdomen: Positive for: Normal Bowel Sounds. Negative for: Tenderness Lower Extremity: Positive for: Edema (Right LE, improving ), NORMAL PULSES, Other (right groin access site dressing CDI, minimal drainage, no active bleeding) Neurological: Positive for: CN II-XII Intact Skin: Positive for: Warm, Dry, Normal Color Psychiatric: Positive for: Alert, Oriented x 3 Assessment and Plan - Assessment and Plan (Free Text) Assessment: Patient is a 62 year old male with past medical history of Left lower extremity DVT 4 years ago, was on coumadin for 3 months at that time, presented to the ED with worsening shortness of breath on 05/30/17. Found to have Submassive pulmonary embolism. NSTEMI 06/02: BP WNL. Venous duplex- no evidence of DVT (see full report); EKOS catheter affects the waveform analysis in this exam. No major cardiac workup planned. Patient is stable from cardiac perspective. Will continue to follow. 06/01: Plan for echo tomorrow 06/02 BP 159/87, HR 78 Ddimer 4358 Trop (+) at 0.1620 -> 1.570 -> 0.7040 (downtrending) CKMB 4.84 EKG showed sinus tach at 120 Pulmonary Embolism Pt is off heparin drip and alteplase via peripheral cath -anti-coagulation management per Dr. Jang and Dr. Magaña -Dr. Magaña on board for hypercoagulable workup Case Discussed with Dr. Sherman Beck, PGY2
--- NOTE | 2017-06-02 14:49 | CP.PCM.CON ---
History of Present Illness - History of Present Illness History of Present Illness: reason for consultation: pulmonary embolism 62-year-old male with history of left extremity DVT presented to emergency room with worsening shortness of breath mostly on exertion. Denies any chest pain, denies cough, denies fever or chills. Patient states that he recently returned from [place] on a flight. CT angiogram consistent with pulmonary embolism status post EKOS/thrombolysis. Patient started on pradaxa Allergies: NKDA PMHx: DVT in L leg in 2013, on anticoagulation for 3 months Psurg: none Famhx: Father: of VT at 65, Mom: DMII, Brother: of metastatic bladder CA at 62 Social: denies tobacco, alcohol, drugs. 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 Home meds: none Review of Systems - Review of Systems All systems: reviewed and no additional remarkable complaints except (shortness of breath) Past Patient History - Past Medical History & Family History Past Medical History?: Yes - Past Social History Smoking Status: Never Smoked - CARDIAC Hx Cardiac Disorders: No Hx Circulatory Problems: Yes (L leg DVT 10yrs ago) - PULMONARY Hx Respiratory Disorders: No - NEUROLOGICAL Hx Neurological Disorder: No - HEENT Hx HEENT Problems: No - RENAL Hx Chronic Kidney Disease: No - ENDOCRINE/METABOLIC Hx Endocrine Disorders: No - HEMATOLOGICAL/ONCOLOGICAL Hx Blood Disorders: No - INTEGUMENTARY Hx Dermatological Problems: No - MUSCULOSKELETAL/RHEUMATOLOGICAL Hx Musculoskeletal Disorders: No Hx Falls: No - GASTROINTESTINAL Hx Gastrointestinal Disorders: No - GENITOURINARY/GYNECOLOGICAL Hx Genitourinary Disorders: No - PSYCHIATRIC Hx Psychophysiologic Disorder: No Hx Substance Use: No - SURGICAL HISTORY Hx Surgeries: No - ANESTHESIA Hx Anesthesia: No Meds Allergies/Adverse Reactions: Allergies Allergy/AdvReac Type Severity Reaction Status Date / Time No Known Allergies Allergy Verified 05/30/17 17:58 - Medications Medications: Current Medications Dabigatran (Pradaxa) 150 mg PO BID [facility] Last Admin: 06/02/17 09:59 Dose: 150 mg Pantoprazole Sodium (Protonix Ec Tab) 40 mg PO DAILY [facility] Last Admin: 06/02/17 10:02 Dose: 40 mg Physical Exam - Head Exam Head Exam: ATRAUMATIC, NORMOCEPHALIC - ENT Exam ENT Exam: Mucous Membranes Moist - Neck Exam Neck exam: Positive for: Normal Inspection - Respiratory Exam Respiratory Exam: Clear to Auscultation Bilateral - Cardiovascular Exam Cardiovascular Exam: REGULAR RHYTHM - GI/Abdominal Exam GI & Abdominal Exam: Normal Bowel Sounds, Soft - Extremities Exam Extremities exam: Positive for: normal inspection Results - Vital Signs Recent Vital Signs: Last Vital Signs Temp 98.4 F 06/02/17 08:00 Pulse 72 06/02/17 14:00 Resp 19 06/02/17 14:00 BP 131/81 06/02/17 13:39 Pulse Ox 92 L 06/02/17 14:00 - Labs Result Diagrams: 06/02/17 06:24 06/02/17 06:24 Labs: Laboratory Results - last 24 hr 05/31/17 06/01/17 06/01/17 07:27 15:58 15:58 WBC RBC Hgb Hct MCV MCH MCHC RDW Plt Count MPV Neut % (Auto) Lymph % (Auto) Robertson % (Auto) Eos % (Auto) Baso % (Auto) Neut # (Auto) Lymph # (Auto) Robertson # (Auto) Eos # (Auto) Baso # (Auto) PT 13.9 H INR 1.2 APTT 47 H D Fibrinogen 420 H Protein S Antigen 123 Sodium 140 Potassium 3.9 Chloride 107 Carbon Dioxide 23 Anion Gap 13 BUN 14 Creatinine 0.9 Est GFR ( Amer) > 60 Est GFR (Non-Af Amer) > 60 Random Glucose 100 Calcium 8.6 Phosphorus Magnesium Total Bilirubin AST ALT Alkaline Phosphatase Total Protein Albumin Globulin Albumin/Globulin Ratio 06/01/17 06/01/17 06/02/17 15:58 21:40 06:24 WBC 8.2 8.3 RBC 4.64 4.66 Hgb 13.8 14.1 Hct 40.8 41.1 MCV 87.8 88.3 MCH 29.8 30.3 MCHC 34.0 34.3 RDW 13.4 13.7 Plt Count 174 174 MPV 8.8 10.3 Neut % (Auto) 63.3 Lymph % (Auto) 21.2 Robertson % (Auto) 10.0 Eos % (Auto) 4.4 H Baso % (Auto) 1.1 Neut # (Auto) 5.3 Lymph # (Auto) 1.8 Robertson # (Auto) 0.8 Eos # (Auto) 0.4 Baso # (Auto) 0.1 PT INR APTT 44 H Fibrinogen Protein S Antigen Sodium Potassium Chloride Carbon Dioxide Anion Gap BUN Creatinine Est GFR ( Amer) Est GFR (Non-Af Amer) Random Glucose Calcium Phosphorus Magnesium Total Bilirubin AST ALT Alkaline Phosphatase Total Protein Albumin Globulin Albumin/Globulin Ratio 06/02/17 06/02/17 06:24 06:24 WBC RBC Hgb Hct MCV MCH MCHC RDW Plt Count MPV Neut % (Auto) Lymph % (Auto) Robertson % (Auto) Eos % (Auto) Baso % (Auto) Neut # (Auto) Lymph # (Auto) Robertson # (Auto) Eos # (Auto) Baso # (Auto) PT INR APTT 51 H D Fibrinogen Protein S Antigen Sodium 140 Potassium 3.8 Chloride 106 Carbon Dioxide 22 Anion Gap 16 BUN 23 H Creatinine 1.0 Est GFR ( Amer) > 60 Est GFR (Non-Af Amer) > 60 Random Glucose 93 Calcium 8.5 L Phosphorus 3.5 Magnesium 1.9 Total Bilirubin 0.5 AST 28 ALT 36 Alkaline Phosphatase 79 Total Protein 6.9 Albumin 3.4 L Globulin 3.5 Albumin/Globulin Ratio 1.0 Assessment & Plan (1) Pulmonary embolism Status: Acute Comment: status post EKOS/thrombolysis. cont Pradaxa. hematology evaluation
[2017-06-02] MEDS: Mupirocin 2% Ointment (NASAL) NAS SCH (17:37)
--- NOTE | 2017-06-02 21:36 | CARD ---
APPROVED REPORT EKG Measurement Heart [id number] AL [id number] POg230 <Conclusion> Sinus tachycardia Possible Left atrial enlargement Left ventricular hypertrophy with repolarization abnormality Inferior infarct, age undetermined Abnormal ECG
[2017-06-03 06:06] LABS: BASO # 0.1 K/uL (0.0-0.2); BASO % 1.2 % (0.0-2.0); EOS # 0.3 K/uL (0.0-0.7); EOS % 3.9 % (0.0-4.0); HEMOGLOBIN 14.1 g/dL (12.0-18.0); LYMPH # 1.1 K/uL (1.0-4.3); LYMPH % 16.5 % (20.0-40.0); MEAN CELL VOLUME 87.9 fL (80.0-94.0); MEAN CORPUSCULAR HEMOGLOBIN 29.7 pg (27.0-31.0); MEAN CORPUSCULAR HGB CONC 33.8 g/dL (33.0-37.0); MEAN PLATELET VOLUME 9.9 fL (7.2-11.7); MONO # 0.8 K/uL (0.0-0.8); MONO % 11.7 % (0.0-10.0); NEUT # 4.4 K/uL (1.8-7.0); NEUT % 66.7 % (50.0-75.0); NRBC % 0.1 % (0.0-2.0); RBC 4.76 Mil/uL (4.40-5.90); RED CELL DISTRIBUTION WIDTH 13.6 % (11.5-14.5); WHITE BLOOD COUNT 6.5 K/uL (4.8-10.8)
[2017-06-03 06:29] LABS: ALBUMIN 3.5 g/dL (3.5-5.0); ALT/SGPT 53 U/L (21-72); AST/SGOT 50 U/L (17-59); BLOOD UREA NITROGEN 18 mg/dL (9-20); CALCIUM 8.5 mg/dl (8.6-10.4); GFR AFRICAN-AMERICAN > 60; GFR NON-AFRICAN AMERICAN > 60
[2017-06-03 08:10] VITALS: BP 128/81
[2017-06-03] MEDS: Pantoprazole 40 mg EC Tab PO SCH (09:38)
[2017-06-03] MEDS: Mupirocin 2% Ointment (NASAL) NAS SCH (09:38)
--- NOTE | 2017-06-03 10:15 | CP.PCM.PN ---
<Dexter Lagos - Last Filed: 06/03/17 10:12> Subjective - Date & Time of Evaluation Date of Evaluation: 06/03/17 Time of Evaluation: 10:12 - Subjective Subjective: PGY-[address] Yadav. No acute events noted overnight. Patient did not offer any complaints. He understood the plan going forward. He understood he will have to be on a lifelong anticoagulation (most likely pradaxa). On tele his HR was in the 80s. He denies shortness of breath, chest pain, abdominal pain, diarrhea, leg pain, bleeding, fevers. Objective - Vital Signs/Intake and Output Vital Signs (last 24 hours): Temp Pulse Resp BP Pulse Ox 98.8 F 85 17 128/81 91 L 06/03/17 08:00 06/03/17 08:30 06/03/17 08:01 06/03/17 08:01 06/03/17 08:01 Intake and Output: 06/03/17 06/03/17 06:59 18:59 Intake Total 240 0 Output Total 1300 Balance -1060 0 - Medications Medications: Current Medications Dabigatran (Pradaxa) 150 mg PO BID [facility] Last Admin: 06/03/17 09:38 Dose: 150 mg Mupirocin (Bactroban 2% Nasal) 0.5 gm [place] BID [facility] Last Admin: 06/03/17 09:38 Dose: 0.5 gm Pantoprazole Sodium (Protonix Ec Tab) 40 mg PO DAILY [facility] Last Admin: 06/03/17 09:38 Dose: 40 mg - Labs Labs: 06/03/17 05:50 06/03/17 05:57 PT 13.9 SECONDS (9.7-12.2) H 06/01/17 15:58 INR 1.2 06/01/17 15:58 APTT 29 SECONDS (21-34) D 06/03/17 05:50 - Constitutional Appears: Well, Non-toxic, No Acute Distress - Head Exam Head Exam: ATRAUMATIC, NORMAL INSPECTION - Eye Exam Eye Exam: EOMI Pupil Exam: PERRL - ENT Exam ENT Exam: Mucous Membranes Moist - Neck Exam Neck Exam: absent: Lymphadenopathy, Tenderness - Respiratory Exam Respiratory Exam: Clear to Ausculation Bilateral, NORMAL BREATHING PATTERN. absent: Rales, Rhonchi, Wheezes - Cardiovascular Exam Cardiovascular Exam: REGULAR RHYTHM, +S1, +S2. absent: Bradycardia, Tachycardia , JVD, Murmur - GI/Abdominal Exam GI & Abdominal Exam: Soft, Normal Bowel Sounds. absent: Distended, Firm, Guarding, Rigid, Tenderness - Extremities Exam Extremities Exam: Full ROM, Normal Capillary Refill, Pedal Edema Additional comments: Right sided lower extremity pitting edema - Back Exam Back Exam: NORMAL INSPECTION - Skin Skin Exam: Intact, Normal Color, Warm Assessment and Plan - Assessment and Plan (Free Text) Assessment: Submassive Pulmonary Embolism Unprovoked PE Pulmonology consult, Dr Jang Gear [employer] Operator consult, Dr Whitaker IR consult, Dr Torres * S/P EKOS with direct thrombolysis for submassive PE by IR 05/31/17 * Placement of a retrievable IVC filter in the infrarenal IVC 06/01/17 Hematology consult, Dr Magaña * lifelong therapeutic anticoagulation; pt agreeable to outpatient Pradaxa Patient states to his knowledge, unsure why he got the DVT 4 year ago Didimer 4358 on admission Protein C, Protein S NORMAL F/U Factor V Other hypercoagubility workup per Dr Magaña Imaging: CT angio showed acute pulmonary embolism with large clot burden. Elevated RV/LV ratio indication right ventricular strain, small hiatal hernia, Mosaic perfusion abnormality. May be related to intrapulmonary shunting secondary to thrombosis (see full report) Venous duplex no evidence of DVT (see full report); EKOS catheter affects the waveform analysis in this exam. Meds: Received Tpa 10mg x 3 on 05/30, 05/31, 06/01, patient was apprehensive about receiving a larger dose Patient is now off heparin drip peripherally Dabigatran 150mg PO BID started 06/02/17 NSTEMI Cardiology consult, Dr Whitaker * No major cardiac workup planned. Patient is stable from cardiac perspective. Right Heart Strain 2/2 to submassive PE Troponins 0.1620 -> 1.570 -> 0.7040 Echo 05/30/17- EF 65%; Normal LV systolic fcn, moderate to severe pulm HTN; mild aortic regurg. Prophylaxis Protonix 40mg PO QD Contraindications for SCDs, Dabigatran for antiocoagulation for PE Heart healthy diet <Aguilar Yadav - Last Filed: 06/03/17 14:40> Objective - Vital Signs/Intake and Output Vital Signs (last 24 hours): Temp Pulse Resp BP Pulse Ox 97.8 F 78 12 128/81 98 06/03/17 12:00 06/03/17 10:00 06/03/17 10:00 06/03/17 10:00 06/03/17 13:10 Intake and Output: 06/03/17 06/03/17 06:59 18:59 Intake Total 240 320 Output Total 1300 Balance -1060 320 - Labs Labs: 06/03/17 05:50 06/03/17 05:57 PT 13.9 SECONDS (9.7-12.2) H 06/01/17 15:58 INR 1.2 06/01/17 15:58 APTT 29 SECONDS (21-34) D 06/03/17 05:50 Attending/Attestation - Attestation I have personally seen and examined this patient.: Yes I have fully participated in the care of the patient.: Yes I have reviewed all pertinent clinical information, including history, physical exam and plan: Yes Notes (Text): Medical attending: Patient was seen and examined by me, agrees the above note by the medical director of hospice. On exam we also had the patient stand up and walk with us. He was able to ambulate without any difficulty. He was not short of breath, he does not report chest pain, he did not have to dysnpea on exertion, he did not have palpitations. As mentioned previously the patient came in with a very large saddle pulmonary embolism. He underwent a direct thrombolysis of this pulmonary embolism. During this time the patient's hemoglobin has remained stable. Yesterday he was discontinued from heparin and switched over to Pradaxa twice a day. The patient understands that he's can be on lifelong anticoagulation. He'll need to follow-up with cardiology as well as hematology oncology. Does not have a primary care physician. So we encouraged the patient to find a primary care physician and we gave him some suggestions. I also filled out a lot of work forms, I explained to him that he should be out of work for at least a week. He'll need occasional time off every month sonographic follow-up with doctor appointments Thank you very much, Aguilar Yadav
--- NOTE | 2017-06-03 12:21 | CP.PCM.DIS ---
<Dexter Lagos R - Last Filed: 06/03/17 12:14> Provider - Provider Date of Admission: 05/30/17 20:20 Attending physician: Aguilar Yadav DO Primary care physician: PMD: none Consults: Layout Artist: Dr Whitaker Rectifying Operator/Oncologist: Dr Magaña IR: Dr Torres Pulm: Dr Jang Time Spent in preparation of Discharge (in minutes): 35 Hospital Course - Lab Results Lab Results: Micro Results 05/31/17 00:05 Nose MRSA Culture (Admit) - Final MRSA DETECTED Most Recent Lab Values WBC 6.5 K/uL (4.8-10.8) 06/03/17 05:50 RBC 4.76 Mil/uL (4.40-5.90) 06/03/17 05:50 Hgb 14.1 g/dL (12.0-18.0) 06/03/17 05:50 Hct 41.8 % (35.0-51.0) 06/03/17 05:50 MCV 87.9 fL (80.0-94.0) 06/03/17 05:50 MCH 29.7 pg (27.0-31.0) 06/03/17 05:50 MCHC 33.8 g/dL (33.0-37.0) 06/03/17 05:50 RDW 13.6 % (11.5-14.5) 06/03/17 05:50 Plt Count 199 K/uL (130-400) 06/03/17 05:50 MPV 9.9 fL (7.2-11.7) 06/03/17 05:50 Neut % (Auto) 66.7 % (50.0-75.0) 06/03/17 05:50 Lymph % (Auto) 16.5 % (20.0-40.0) L 06/03/17 05:50 [place] % (Auto) 11.7 % (0.0-10.0) H 06/03/17 05:50 Eos % (Auto) 3.9 % (0.0-4.0) 06/03/17 05:50 Baso % (Auto) 1.2 % (0.0-2.0) 06/03/17 05:50 Neut # (Auto) 4.4 K/uL (1.8-7.0) 06/03/17 05:50 Lymph # (Auto) 1.1 K/uL (1.0-4.3) 06/03/17 05:50 [place] # (Auto) 0.8 K/uL (0.0-0.8) 06/03/17 05:50 Eos # (Auto) 0.3 K/uL (0.0-0.7) 06/03/17 05:50 Baso # (Auto) 0.1 K/uL (0.0-0.2) 06/03/17 05:50 PT 13.9 SECONDS (9.7-12.2) H 06/01/17 15:58 INR 1.2 06/01/17 15:58 APTT 29 SECONDS (21-34) D 06/03/17 05:50 Fibrinogen 420 mg/dL (200-400) H 06/01/17 15:58 D-Dimer, Quantitative 4358 ng/mlDDU (0-243) H 05/30/17 18:09 Protein C Antigen 92 % (70-140) 05/31/17 07:27 Protein S Antigen 123 % (70-140) 05/31/17 07:27 Puncture Site Rra 05/30/17 20:40 pCO2 32 mm/Hg (35-45) L 05/30/17 20:40 pO2 121 mm/Hg (80-100) H 05/30/17 20:40 HCO3 23.7 mmol/L (21-28) 05/30/17 20:40 ABG pH 7.44 (7.35-7.45) 05/30/17 20:40 ABG Total CO2 22.7 mmol/L (22-28) 05/30/17 20:40 ABG O2 Saturation 99.2 % (95-98) H 05/30/17 20:40 ABG Base Excess -1.5 mmol/L (-2.0-3.0) 05/30/17 20:40 ABG Hemoglobin 15.8 g/dL (11.7-17.4) 05/30/17 20:40 ABG Carboxyhemoglobin 1.3 % (0.5-1.5) 05/30/17 20:40 POC ABG HHb (Measured) 0.8 % (0.0-5.0) 05/30/17 20:40 ABG Methemoglobin 1.3 % (0.0-3.0) 05/30/17 20:40 Morales Test Pos 05/30/17 20:40 A-a O2 Difference 267.0 mm/Hg 05/30/17 20:40 Respiratory Index 2.2 05/30/17 20:40 Hgb O2 Saturation 96.5 % (95.0-98.0) 05/30/17 20:40 Liter Flow 10.0 05/30/17 20:40 FiO2 60.0 % 05/30/17 20:40 Sodium 140 mmol/L (132-148) 06/03/17 05:57 Potassium 3.7 mmol/L (3.6-5.2) 06/03/17 05:57 Chloride 104 mmol/L (98-107) 06/03/17 05:57 Carbon Dioxide 21 mmol/L (22-30) L 06/03/17 05:57 Anion Gap 18 (10-20) 06/03/17 05:57 BUN 18 mg/dL (9-20) 06/03/17 05:57 Creatinine 0.9 mg/dL (0.8-1.5) 06/03/17 05:57 Est GFR ( Amer) > 60 06/03/17 05:57 Est GFR (Non-Af Amer) > 60 06/03/17 05:57 POC Glucose (mg/dL) 110 mg/dL (65-110) 05/30/17 23:42 Random Glucose 90 mg/dL (75-110) 06/03/17 05:57 Calcium 8.5 mg/dl (8.6-10.4) L 06/03/17 05:57 Phosphorus 4.4 mg/dL (2.5-4.5) 06/03/17 05:57 Magnesium 1.8 mg/dL (1.6-2.3) 06/03/17 05:57 Total Bilirubin 0.4 mg/dL (0.2-1.3) 06/03/17 05:57 AST 50 U/L (17-59) 06/03/17 05:57 ALT 53 U/L (21-72) 06/03/17 05:57 Alkaline Phosphatase 81 U/L (38-126) 06/03/17 05:57 Total Creatine Kinase 88 U/L (55-170) 05/31/17 16:07 CK-MB (Mass) 4.84 ng/mL (0.0-3.38) H 05/31/17 16:07 Troponin I 0.7040 ng/mL (0.00-0.120) H* 05/31/17 16:07 NT-Pro-B Natriuret Pep 605 pg/mL (0-900) 05/30/17 18:09 Total Protein 6.8 g/dL (6.3-8.3) 06/03/17 05:57 Albumin 3.5 g/dL (3.5-5.0) 06/03/17 05:57 Globulin 3.3 gm/dL (2.2-3.9) 06/03/17 05:57 Albumin/Globulin Ratio 1.0 (1.0-2.1) 06/03/17 05:57 Ethanolamine None detected 05/31/17 07:27 Urine Color Straw (YELLOW) 05/30/17 19:39 Urine Clarity Clear (Clear) 05/30/17 19:39 Urine pH 5.0 (5.0-8.0) 05/30/17 19:39 Ur Specific [place] 1.030 (1.003-1.030) 05/30/17 19:39 Urine Protein 1+ mg/dL (NEGATIVE) H 05/30/17 19:39 Urine Glucose (UA) Normal mg/dL (Normal) 05/30/17 19:39 Urine Ketones Negative mg/dL (NEGATIVE) 05/30/17 19:39 Urine Blood Negative (NEGATIVE) 05/30/17 19:39 Urine Nitrate Negative (NEGATIVE) 05/30/17 19:39 Urine Bilirubin Negative (NEGATIVE) 05/30/17 19:39 Urine Urobilinogen Normal mg/dL (0.2-1.0) 05/30/17 19:39 Ur Leukocyte Esterase Neg Mariya/uL (Negative) 05/30/17 19:39 Urine WBC (Auto) 1 /hpf (0-5) 05/30/17 19:39 Urine RBC (Auto) 2 /hpf (0-3) 1818 19:39 Urine Bacteria Rare (<OCC) 05/30/17 19:39 Urine Opiates Screen Negative (NEGATIVE) 05/30/17 21:48 Urine Methadone Screen Negative (NEGATIVE) 05/30/17 21:48 Ur Barbiturates Screen Negative (NEGATIVE) 05/30/17 21:48 Ur Phencyclidine Scrn Negative (NEGATIVE) 05/30/17 21:48 Ur Amphetamines Screen Negative (NEGATIVE) 05/30/17 21:48 U Benzodiazepines Scrn Negative (NEGATIVE) 05/30/17 21:48 U Oth Cocaine Metabols Negative (NEGATIVE) 05/30/17 21:48 U Cannabinoids Screen Negative (NEGATIVE) 05/30/17 21:48 Methyl Alcohol Level None detected 05/31/17 07:27 Isopropanol None detected 05/31/17 07:27 Acetone Level None detected 05/31/17 07:27 Blood Type AB POSITIVE 05/30/17 20:40 Antibody Screen Negative 05/30/17 20:40 - Hospital Course Hospital Course: CC: Shortness of breath HPI: 62 year old male with PMHx of L DVT in 2013 presents to the ED today for shortness of breath. 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 This has never happened to him in the past. Patient works out regularly and has not been having any shortness of breath during exercise. Patient sleeps slightly elevated at night, but only uses one pillow. Patient has had no chest pain or leg pain, but his noticed that his right leg has been slightly swollen for the past month. Patient says his leg swelling comes and goes and he attributed it to being on his feet all day at work. Yesterday, patient flew back from vacation in [place]. He had no pain or trouble breathing during or after the flight. Today patient was cleaning his bathroom with some chemicals and started to feel dizzy like the room was spinning. He also started to feel very short of breath. He walked upstairs from the bathroom to tell his and sat down to try to calm his breathing. His called 911 and by the time EMS arrived, patient said he felt his breathing had improved. Patient denies being sick recently. Patient has had no trauma. Patient denies any chest pain, abdominal pain, nausea, vomiting, constipation, or diarrhea. 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 He was given TPA alteplase 10mg and started on heparin drip. He was apprehensive about receiving a larger dose of TPA alteplase. He had an EKOS done by interventional radiology on 05/[address] Cristhian Torres and had a retrievable IVC filter placed on 06/01. Venous dopplers of LE did not show any evidence of DVT. It would appear this is an unprovoked PE. His Protein C and Protein S were NORMAL. Upon discharge his factor V had not returned. He had right heart strain from the PE and thus released tropoinins ( which were downtrending). An echo was done (results shown below). Cardiology evaluated the patient and determined no major cardiac workup was warranted. He will follow-up with Dr Toby Magaña. Per Dr Magaña, he will need lifelong therapeutic anticoagulation (Pradaxa 150mg PO BID). The patient is agreeable to this. He was started on Pradaxa the day before discharge. The latest progress note is shown below for further details about management: Submassive Pulmonary Embolism Unprovoked PE Pulmonology consult, Dr Jang Layout Artist consult, Dr Whitaker IR consult, Dr Torres * S/P EKOS with direct thrombolysis for submassive PE by IR 05/31/17 * Placement of a retrievable IVC filter in the infrarenal IVC 06/01/17 Hematology consult, Dr Magaña * lifelong therapeutic anticoagulation; pt agreeable to outpatient Pradaxa Patient states to his knowledge, unsure why he got the DVT 4 year ago Didimer [id number] on admission Protein C, Protein S NORMAL F/U Factor V Other hypercoagubility workup per Dr Magaña Imaging: CT angio showed acute pulmonary embolism with large clot burden. Elevated RV/LV ratio indication right ventricular strain, small hiatal hernia, Mosaic perfusion abnormality. May be related to intrapulmonary shunting secondary to thrombosis (see full report) Venous duplex no evidence of DVT (see full report); EKOS catheter affects the waveform analysis in this exam. Meds: Received Tpa 10mg x 3 on 05/30, 05/31, 06/01, patient was apprehensive about receiving a larger dose Patient is now off heparin drip peripherally Dabigatran 150mg PO BID started 06/02/17 NSTEMI Cardiology consult, Dr Whitaker * No major cardiac workup planned. Patient is stable from cardiac perspective. Right Heart Strain 2/2 to submassive PE Troponins 0.1620 -> 1.570 -> 0.7040 Echo 05/30/17- EF 65%; Normal LV systolic fcn, moderate to severe pulm HTN; mild aortic regurg. Prophylaxis Protonix 40mg PO QD Contraindications for SCDs, Dabigatran for antiocoagulation for PE Heart healthy diet Discharge Exam - Additional Findings Additional findings: - Constitutional Appears: Well, Non-toxic, No Acute Distress - Head Exam Head Exam: ATRAUMATIC, NORMAL INSPECTION - Eye Exam Eye Exam: EOMI Pupil Exam: PERRL - ENT Exam ENT Exam: Mucous Membranes Moist - Neck Exam Neck Exam: absent: Lymphadenopathy, Tenderness - Respiratory Exam Respiratory Exam: Clear to Ausculation Bilateral, NORMAL BREATHING PATTERN. absent: Rales, Rhonchi, Wheezes - Cardiovascular Exam Cardiovascular Exam: REGULAR RHYTHM, +S1, +S2. absent: Bradycardia, Tachycardia , JVD, Murmur - GI/Abdominal Exam GI & Abdominal Exam: Soft, Normal Bowel Sounds. absent: Distended, Firm, Guarding, Rigid, Tenderness - Extremities Exam Extremities Exam: Full ROM, Normal Capillary Refill, Pedal Edema Additional comments: Right sided lower extremity pitting edema - Back Exam Back Exam: NORMAL INSPECTION - Skin Skin Exam: Intact, Normal Color, Warm Discharge Plan - Follow Up Plan Condition: CRITICAL Disposition: HOME/ ROUTINE Instructions: Dabigatran Etexilate, Pulmonary Embolism (Blood Clot in the Lungs ) (DC) Additional Instructions: Patient is medically stable for discharge. Please make an appointment and follow-up with java websphere developer Dr Toby Magaña. He has ordered blood work that he will be able to review with you. Also, he can monitor your recovery. In addition, he can re-fill your Pradaxa medication which he'll be able to fax to your pharmacy in [place]. Dr Toby Magaña [address] [place] [address] Since you inquired about a Primary Medical Doctor, we've provided a referral for Dr Sanjay Rodriguez. Dr Sanjay Rodriguez [address] [place] [address] We are discharging you with a script for Pradaxa 150mg to be taken once with breakfast and once with dinner. If you experience shortness of breath again, please go to your nearest emergency department. Referrals: Toby Magaña MD [Staff Provider] - Sanjay Rodriguez MD [Staff Provider] - <Aguilar Yadav - Last Filed: 06/03/17 14:43> Provider - Provider Date of Admission: 05/30/17 20:20 Attending physician: Aguilar Yadav DO Hospital Course - Lab Results Lab Results: Micro Results 05/31/17 00:05 Nose MRSA Culture (Admit) - Final MRSA DETECTED Most Recent Lab Values WBC 6.5 K/uL (4.8-10.8) 06/03/17 05:50 RBC 4.76 Mil/uL (4.40-5.90) 06/03/17 05:50 Hgb 14.1 g/dL (12.0-18.0) 06/03/17 05:50 Hct 41.8 % (35.0-51.0) 06/03/17 05:50 MCV 87.9 fL (80.0-94.0) 06/03/17 05:50 MCH 29.7 pg (27.0-31.0) 06/03/17 05:50 MCHC 33.8 g/dL (33.0-37.0) 06/03/17 05:50 RDW 13.6 % (11.5-14.5) 06/03/17 05:50 Plt Count 199 K/uL (130-400) 06/03/17 05:50 MPV 9.9 fL (7.2-11.7) 06/03/17 05:50 Neut % (Auto) 66.7 % (50.0-75.0) 06/03/17 05:50 Lymph % (Auto) 16.5 % (20.0-40.0) L 06/03/17 05:50 [place] % (Auto) 11.7 % (0.0-10.0) H 06/03/17 05:50 Eos % (Auto) 3.9 % (0.0-4.0) 06/03/17 05:50 Baso % (Auto) 1.2 % (0.0-2.0) 06/03/17 05:50 Neut # (Auto) 4.4 K/uL (1.8-7.0) 06/03/17 05:50 Lymph # (Auto) 1.1 K/uL (1.0-4.3) 06/03/17 05:50 [place] # (Auto) 0.8 K/uL (0.0-0.8) 06/03/17 05:50 Eos # (Auto) 0.3 K/uL (0.0-0.7) 06/03/17 05:50 Baso # (Auto) 0.1 K/uL (0.0-0.2) 06/03/17 05:50 PT 13.9 SECONDS (9.7-12.2) H 06/01/17 15:58 INR 1.2 06/01/17 15:58 APTT 29 SECONDS (21-34) D 06/03/17 05:50 Fibrinogen 420 mg/dL (200-400) H 06/01/17 15:58 D-Dimer, Quantitative 4358 ng/mlDDU (0-243) H 05/30/17 18:09 Protein C Antigen 92 % (70-140) 05/31/17 07:27 Protein S Antigen 123 % (70-140) 05/31/17 07:27 Puncture Site Rra 05/30/17 20:40 pCO2 32 mm/Hg (35-45) L 05/30/17 20:40 pO2 121 mm/Hg (80-100) H 05/30/17 20:40 HCO3 23.7 mmol/L (21-28) 05/30/17 20:40 ABG pH 7.44 (7.35-7.45) 05/30/17 20:40 ABG Total CO2 22.7 mmol/L (22-28) 05/30/17 20:40 ABG O2 Saturation 99.2 % (95-98) H 05/30/17 20:40 ABG Base Excess -1.5 mmol/L (-2.0-3.0) 05/30/17 20:40 ABG Hemoglobin 15.8 g/dL (11.7-17.4) 05/30/17 20:40 ABG Carboxyhemoglobin 1.3 % (0.5-1.5) 05/30/17 20:40 POC ABG HHb (Measured) 0.8 % (0.0-5.0) 05/30/17 20:40 ABG Methemoglobin 1.3 % (0.0-3.0) 05/30/17 20:40 Morales Test Pos 05/30/17 20:40 A-a O2 Difference 267.0 mm/Hg 05/30/17 20:40 Respiratory Index 2.2 05/30/17 20:40 Hgb O2 Saturation 96.5 % (95.0-98.0) 05/30/17 20:40 Liter Flow 10.0 05/30/17 20:40 FiO2 60.0 % 05/30/17 20:40 Sodium 140 mmol/L (132-148) 06/03/17 05:57 Potassium 3.7 mmol/L (3.6-5.2) 06/03/17 05:57 Chloride 104 mmol/L (98-107) 06/03/17 05:57 Carbon Dioxide 21 mmol/L (22-30) L 06/03/17 05:57 Anion Gap 18 (10-20) 06/03/17 05:57 BUN 18 mg/dL (9-20) 06/03/17 05:57 Creatinine 0.9 mg/dL (0.8-1.5) 06/03/17 05:57 Est GFR ( Amer) > 60 06/03/17 05:57 Est GFR (Non-Af Amer) > 60 06/03/17 05:57 POC Glucose (mg/dL) 110 mg/dL (65-110) 05/30/17 23:42 Random Glucose 90 mg/dL (75-110) 06/03/17 05:57 Calcium 8.5 mg/dl (8.6-10.4) L 06/03/17 05:57 Phosphorus 4.4 mg/dL (2.5-4.5) 06/03/17 05:57 Magnesium 1.8 mg/dL (1.6-2.3) 06/03/17 05:57 Total Bilirubin 0.4 mg/dL (0.2-1.3) 06/03/17 05:57 AST 50 U/L (17-59) 06/03/17 05:57 ALT 53 U/L (21-72) 06/03/17 05:57 Alkaline Phosphatase 81 U/L (38-126) 06/03/17 05:57 Total Creatine Kinase 88 U/L (55-170) 05/31/17 16:07 CK-MB (Mass) 4.84 ng/mL (0.0-3.38) H 05/31/17 16:07 Troponin I 0.7040 ng/mL (0.00-0.120) H* 05/31/17 16:07 NT-Pro-B Natriuret Pep 605 pg/mL (0-900) 05/30/17 18:09 Total Protein 6.8 g/dL (6.3-8.3) 06/03/17 05:57 Albumin 3.5 g/dL (3.5-5.0) 06/03/17 05:57 Globulin 3.3 gm/dL (2.2-3.9) 06/03/17 05:57 Albumin/Globulin Ratio 1.0 (1.0-2.1) 06/03/17 05:57 Ethanolamine None detected 05/31/17 07:27 Urine Color Straw (YELLOW) 05/30/17 19:39 Urine Clarity Clear (Clear) 05/30/17 19:39 Urine pH 5.0 (5.0-8.0) 05/30/17 19:39 Ur Specific [place] 1.030 (1.003-1.030) 05/30/17 19:39 Urine Protein 1+ mg/dL (NEGATIVE) H 05/30/17 19:39 Urine Glucose (UA) Normal mg/dL (Normal) 05/30/17 19:39 Urine Ketones Negative mg/dL (NEGATIVE) 05/30/17 19:39 Urine Blood Negative (NEGATIVE) 05/30/17 19:39 Urine Nitrate Negative (NEGATIVE) 05/30/17 19:39 Urine Bilirubin Negative (NEGATIVE) 05/30/17 19:39 Urine Urobilinogen Normal mg/dL (0.2-1.0) 05/30/17 19:39 Ur Leukocyte Esterase Neg Mariya/uL (Negative) 05/30/17 19:39 Urine WBC (Auto) 1 /hpf (0-5) 05/30/17 19:39 Urine RBC (Auto) 2 /hpf (0-3) 05/30/17 19:39 Urine Bacteria Rare (<OCC) 05/30/17 19:39 Urine Opiates Screen Negative (NEGATIVE) 05/30/17 21:48 Urine Methadone Screen Negative (NEGATIVE) 05/30/17 21:48 Ur Barbiturates Screen Negative (NEGATIVE) 05/30/17 21:48 Ur Phencyclidine Scrn Negative (NEGATIVE) 05/30/17 21:48 Ur Amphetamines Screen Negative (NEGATIVE) 05/30/17 21:48 U Benzodiazepines Scrn Negative (NEGATIVE) 05/30/17 21:48 U Oth Cocaine Metabols Negative (NEGATIVE) 05/30/17 21:48 U Cannabinoids Screen Negative (NEGATIVE) 05/30/17 21:48 Methyl Alcohol Level None detected 05/31/17 07:27 Isopropanol None detected 05/31/17 07:27 Acetone Level None detected 05/31/17 07:27 Blood Type AB POSITIVE 05/30/17 20:40 Antibody Screen Negative 05/30/17 20:40 Attending/Attestation - Attestation I have personally seen and examined this patient.: Yes I have fully participated in the care of the patient.: Yes I have reviewed all pertinent clinical information, including history, physical exam and plan: Yes Notes (Text): 06/03/17 14:42 Medical attending: Patient was seen and examined by me, agrees the above note by the medical records technician. On exam we also had the patient stand up and walk with us. He was able to ambulate without any difficulty. He was not short of breath, he does not report chest pain, he did not have to dysnpea on exertion, he did not have palpitations. As mentioned previously the patient came in with a very large saddle pulmonary embolism. He underwent a direct thrombolysis of this pulmonary embolism. During this time the patient's hemoglobin has remained stable. Yesterday he was discontinued from heparin and switched over to Pradaxa twice a day. The patient understands that he's can be on lifelong anticoagulation. He'll need to follow-up with cardiology as well as hematology oncology. Does not have a primary care physician. So we encouraged the patient to find a primary care physician and we gave him some suggestions. I also filled out a lot of work forms, I explained to him that he should be out of work for at least a week. He'll need occasional time off every month sonographic follow-up with doctor appointments Thank you very much, Aguilar Yadav
[2017-06-03 12:37] VITALS: PULSE 78; RESP 12; TEMP 97.8
[2017-06-03 13:08] VITALS: O2SAT 98
--- NOTE | 2017-06-03 13:25 | CP.PCM.PN ---
Subjective - Date & Time of Evaluation Date of Evaluation: 06/03/17 Time of Evaluation: 12:00 - Subjective Subjective: Breathing better. Objective - Vital Signs/Intake and Output Vital Signs (last 24 hours): Temp Pulse Resp BP Pulse Ox 97.8 F 78 12 128/81 98 06/03/17 12:00 06/03/17 10:00 06/03/17 10:00 06/03/17 10:00 06/03/17 13:10 Intake and Output: 06/03/17 06/03/17 06:59 18:59 Intake Total 240 320 Output Total 1300 Balance -1060 320 - Medications Medications: Current Medications Dabigatran (Pradaxa) 150 mg PO BID [facility] Last Admin: 06/03/17 09:38 Dose: 150 mg Mupirocin (Bactroban 2% Nasal) 0.5 gm [place]EVER[place] BID [facility] Last Admin: 06/03/17 09:38 Dose: 0.5 gm Pantoprazole Sodium (Protonix Ec Tab) 40 mg PO DAILY [facility] Last Admin: 06/03/17 09:38 Dose: 40 mg - Labs Labs: 06/03/17 05:50 06/03/17 05:57 PT 13.9 SECONDS (9.7-12.2) H 06/01/17 15:58 INR 1.2 06/01/17 15:58 APTT 29 SECONDS (21-34) D 06/03/17 05:50 - Head Exam Head Exam: ATRAUMATIC - Eye Exam Eye Exam: Normal appearance - ENT Exam ENT Exam: Mucous Membranes Dry - Respiratory Exam Respiratory Exam: NORMAL BREATHING PATTERN - Cardiovascular Exam Cardiovascular Exam: +S1, +S2 - GI/Abdominal Exam GI & Abdominal Exam: Normal Bowel Sounds - Extremities Exam Extremities Exam: Pedal Edema Assessment and Plan (1) Saddle embolism of pulmonary artery Assessment & Plan: saddle embolism with RV strain s/p emergent tPA, catheter directed thrombolysis, IVC filter ICU monitoring inherited thrombophilia w/u sent s/p heparin drip and now on Pradaxa 150mg BID will need to remain on lifelong therapeutic anticoagulation given DVT in 2014 treated with 3months of coumadin; pt prefers Pradaxa as has antidote for hemorrhage coumadin tried in the past and reports to difficult to maintain therapeutic INR ; given life threatening saddle PE, subtherapeutic INR may lead to another lifethreatening clot and should remain on Pradaxa Status: Acute
== END 2017-06-03 13:30 | disposition home or self-care (01) | DRG 166 ==
LOC: C.ER 17:51 → C.9I 20:20 → C.9E 20:44 → C.9I 20:45
PROVIDERS: ADMIT Hospitalist; ATTEND Hospitalist
PROC: 03CY3ZZ Extirpation of Matter from Upper Artery, Percutaneous Approach (ICD-10-PCS; principal; 2017-05-31)
PROC: B31TYZZ Fluoroscopy of Left Pulmonary Artery using Other Contrast (ICD-10-PCS; 2017-05-31)
PROC: B31SYZZ Fluoroscopy of Right Pulmonary Artery using Other Contrast (ICD-10-PCS; 2017-05-31)
PROC: 06H03DZ Insertion of Intraluminal Device into Inferior Vena Cava, Percutaneous Approach (ICD-10-PCS; 2017-06-01)
PROC: B31TYZZ Fluoroscopy of Left Pulmonary Artery using Other Contrast (ICD-10-PCS; 2017-06-01)
PROC: B31SYZZ Fluoroscopy of Right Pulmonary Artery using Other Contrast (ICD-10-PCS; 2017-06-01)
DX: I26.92 Saddle embolus of pulmonary artery without acute cor pulmonale (principal); J96.91 Respiratory failure, unspecified with hypoxia; I21.4 Non-ST elevation (NSTEMI) myocardial infarction; I27.20 Pulmonary hypertension, unspecified; Z80.52 Family history of malignant neoplasm of bladder; R00.0 Tachycardia, unspecified

== ENCOUNTER 2017-06-05 18:24 | Emergency (ER) | payer BC ==
--- NOTE | 2017-06-05 19:11 | C.PDOC ---
History Of Present Illness 62 year old male presents to the ER for a complaint of rectal bleeding. Patient states he was recently admitted to the hospital for PE, he was discharged 2 days ago on pradaxa and has been feeling fine with no complaints since then; however, today he went to the bathroom, had a normal bowel movement, and noticed blood when he wiped. Patient note he has a Hx of hemorrhoids which are a little swollen but not painful and have never caused a problem in the past. Denies any free blood in the toilet, chest pain, palpitations, or SOB. Time Seen by Provider: 06/05/17 18:40 Chief Complaint (Nursing): GI Problem History Per: Patient History/Exam Limitations: no limitations Onset/Duration Of Symptoms: Hrs Number Of Bleeding Episodes: One Amount of Blood Loss: Small Associated Symptoms: Rectal Bleeding. denies: Nausea, Vomiting, Diarrhea, Lightheadedness Recent travel outside of the [place]: No Past Medical History Reviewed: Historical Data, Nursing Documentation, Vital Signs Vital Signs: Last Vital Signs Temp 97.5 F L 06/05/17 18:30 Pulse 69 06/05/17 18:30 Resp 20 06/05/17 18:45 BP 185/92 H 06/05/17 18:30 Pulse Ox 99 06/05/17 19:13 - Medical History PMH: Deep Vein Thrombosis, Pulmonary Embolism - [facility] Procedures EXTIRPATION OF MATTER FROM UPPER ARTERY, PERC APPROACH (05/30/17) FLUOROSCOPY OF LEFT PULMONARY ARTERY USING OTHER CONTRAST (05/30/17) FLUOROSCOPY OF RIGHT PULMONARY ARTERY USING OTHER CONTRAST (05/30/17) INSERTION OF INTRALUM DEV INTO INF VENA CAVA, PERC APPROACH (05/30/17) Family History: States: Unknown Family Hx - Social History Hx Alcohol Use: No Hx Substance Use: No - Immunization History Hx Tetanus Toxoid Vaccination: No Hx Influenza Vaccination: No Hx Pneumococcal Vaccination: No Review Of Systems Constitutional: Negative for: Fever, Chills Cardiovascular: Negative for: Chest Pain, Palpitations, Light Headedness Respiratory: Negative for: Shortness of Breath Gastrointestinal: Positive for: Other (Rectal bleed). Negative for: Abdominal Pain, Diarrhea Physical Exam - Physical Exam Appears: Non-toxic, No Acute Distress Skin: Normal Color, Warm, Dry Head: Atraumatic, Normacephalic Eye(s): bilateral: Normal Inspection Oral Mucosa: Moist Chest: Symmetrical, No Tenderness Cardiovascular: Rhythm Regular Respiratory: Normal Breath Sounds, No Rales, No Rhonchi, No Wheezing Gastrointestinal/Abdominal: Soft, No Tenderness Rectal: Hemorrhoids (External nonthrombosed, slightly engorged.) Neurological/Psych: Oriented x3, Normal Speech ED Course And Treatment - Laboratory Results Result Diagrams: 06/05/17 19:10 06/05/17 19:10 Lab Interpretation: Normal Interpretation Of Abnormal: Stool guaiac negative O2 Sat by Pulse Oximetry: 99 (Room air) Pulse Ox Interpretation: Normal Progress Note: Blood work ordered. Disposition Counseled Patient/Family Regarding: Studies Performed, Diagnosis, Need For Followup - Disposition Referrals: Oleg Magaña MD [Staff Provider] - Disposition: HOME/ ROUTINE Disposition Time: 19:55 Condition: STABLE Instructions: Hemorrhoids Forms: [facility] (Croatian) - Clinical Impression Clinical Impression: Hemorrhoids - Scribe Statement The provider has reviewed the documentation as recorded by the Scribe Lon Romero All medical record entries made by the Scribe were at my direction and personally dictated by me. I have reviewed the chart and agree that the record accurately reflects my personal performance of the history, physical exam, medical decision making, and the department course for this patient. I have also personally directed, reviewed, and agree with the discharge instructions and disposition.
[2017-06-05 19:13] LABS: BASO # 0.1 K/uL (0.0-0.2); BASO % 1.1 % (0.0-2.0); EOS # 0.4 K/uL (0.0-0.7); EOS % 5.1 % (0.0-4.0); HEMOGLOBIN 14.8 g/dL (12.0-18.0); LYMPH # 1.4 K/uL (1.0-4.3); LYMPH % 20.2 % (20.0-40.0); MEAN CELL VOLUME 87.7 fL (80.0-94.0); MEAN CORPUSCULAR HEMOGLOBIN 29.9 pg (27.0-31.0); MEAN CORPUSCULAR HGB CONC 34.1 g/dL (33.0-37.0); MEAN PLATELET VOLUME 9.1 fL (7.2-11.7); MONO # 1.1 K/uL (0.0-0.8); NEUT # 4.1 K/uL (1.8-7.0); NEUT % 57.6 % (50.0-75.0); NRBC % 0.1 % (0.0-2.0); RBC 4.95 Mil/uL (4.40-5.90); RED CELL DISTRIBUTION WIDTH 13.5 % (11.5-14.5); WHITE BLOOD COUNT 7.1 K/uL (4.8-10.8)
[2017-06-05 19:22] LABS: INR 1.1; PROTHROMBIN TIME 12.7 SECONDS (9.7-12.2)
[2017-06-05 19:37] LABS: ALB/GLOB RATIO 1.1 (1.0-2.1); ALBUMIN 4.3 g/dL (3.5-5.0); ALT/SGPT 90 U/L (21-72); AST/SGOT 51 U/L (17-59); BLOOD UREA NITROGEN 22 mg/dL (9-20); CALCIUM 9.3 mg/dl (8.6-10.4); GFR AFRICAN-AMERICAN > 60; GFR NON-AFRICAN AMERICAN > 60
[2017-06-05 20:24] VITALS: BP 161/81; PULSE 74; RESP 18; TEMP 98.1; O2SAT 96
== END 2017-06-05 20:25 | disposition home or self-care (01) ==
LOC: C.ER 18:24
DX: K64.4 Residual hemorrhoidal skin tags (principal)
CPT/HCPCS: 80053; 85025; 85610; 85730; 99285; G0328

== ENCOUNTER 2017-07-06 19:17 | Emergency (ER) | payer BC ==
--- NOTE | 2017-07-06 20:11 | C.PDOC ---
History Of Present Illness 62 year old male with PMHx of DVT and PE back in May also found to have a mild MN presents to the ED for evaluation of rectal bleeding. Patient was D/C with prescription for pedragxa. Patient reports that after going to the toilet patient noticed painless bright red blood in rectum. Patient recently had external hemorrhoids currently on hydrocortisone suppository. Patient denies abdominal pain, bruising, bleeding after brushing teeth, CP, SOB, headache, dizziness, weakness, numbness. Chief Complaint (Nursing): GI Problem History Per: Patient History/Exam Limitations: no limitations Onset/Duration Of Symptoms: Hrs Current Symptoms Are (Timing): Still Present Number Of Bleeding Episodes: One Amount of Blood Loss: Small Quality Of Discomfort: "Pain" Associated Symptoms: Rectal Bleeding Modifying Factors: None Recent travel outside of the [place]: No Additional History Per: Patient Past Medical History Reviewed: Historical Data, Nursing Documentation, Vital Signs Vital Signs: Last Vital Signs Temp 97.8 F 07/06/17 21:00 Pulse 60 07/06/17 21:00 Resp 18 07/06/17 21:00 BP 166/83 H 07/06/17 21:00 Pulse Ox 96 07/06/17 21:00 - Medical History PMH: Deep Vein Thrombosis, Pulmonary Embolism Denies: Chronic Kidney Disease Surgical History: No Surg Hx - [facility] Procedures EXTIRPATION OF MATTER FROM UPPER ARTERY, PERC APPROACH (05/30/17) FLUOROSCOPY OF LEFT PULMONARY ARTERY USING OTHER CONTRAST (05/30/17) FLUOROSCOPY OF RIGHT PULMONARY ARTERY USING OTHER CONTRAST (05/30/17) INSERTION OF INTRALUM DEV INTO INF VENA CAVA, PERC APPROACH (05/30/17) Family History: States: Unknown Family Hx - Social History Hx Alcohol Use: No Hx Substance Use: No - Immunization History Hx Tetanus Toxoid Vaccination: No Hx Influenza Vaccination: No Hx Pneumococcal Vaccination: No Review Of Systems Constitutional: Negative for: Fever, Chills Cardiovascular: Negative for: Chest Pain Respiratory: Negative for: Shortness of Breath Gastrointestinal: Positive for: Melena, Hematochezia. Negative for: Abdominal Pain Skin: Negative for: Rash Neurological: Negative for: Weakness, Numbness, Headache, Dizziness Physical Exam - Physical Exam Appears: Non-toxic, No Acute Distress Skin: Normal Color, Warm, Dry Head: Atraumatic, Normacephalic Eye(s): bilateral: Normal Inspection Nose: No Discharge Oral Mucosa: Moist Neck: Normal ROM, Supple Chest: Symmetrical Cardiovascular: Rhythm Regular, No Murmur Respiratory: Normal Breath Sounds, No Rales, No Rhonchi, No Wheezing Gastrointestinal/Abdominal: Soft, No Tenderness, No Guarding, No Rebound Rectal: Hemorrhoids (external prolapsed with oozing blood noted at 7 o'clock), Other (scant stool guac positive ) Extremity: Normal ROM, No Tenderness, No Swelling Neurological/Psych: Oriented x3, Normal Cranial Nerves, Normal Motor, Normal Sensation Gait: Steady ED Course And Treatment - Laboratory Results Result Diagrams: 07/06/17 20:12 07/06/17 20:12 O2 Sat by Pulse Oximetry: 97 (ON RA) Pulse Ox Interpretation: Normal Medical Decision Making Medical Decision Making: Impression: mild lower GI bleed hemorrhoids Plan: * Labs * UA Spoke with Dr. Toby Magaña due to clot on patient lung will not change his pedragxa medication also agreed with plan and H and H comparison. Labs are with normal limits and will be D/C home. Hemorrhoidal bleed. Disposition - Disposition Referrals: Toby Magaña MD [Staff Provider] - Disposition: HOME/ ROUTINE Disposition Time: 04:28 Condition: FAIR Prescriptions: Docusate Sodium [Colace] 100 mg PO TID #21 capsule Hard Fat/Phenylephrine [place] [Hemorrhoidal 88.7%-0.25%] 1 sup NM BID #10 sup Forms: Minted (Mauritian) Print Language: GRENADIAN - Clinical Impression Clinical Impression: Hemorrhoids - Scribe Statement The provider has reviewed the documentation as recorded by the Scribe Daniel Aguirre All medical record entries made by the Scribe were at my direction and personally dictated by me. I have reviewed the chart and agree that the record accurately reflects my personal performance of the history, physical exam, medical decision making, and the department course for this patient. I have also personally directed, reviewed, and agree with the discharge instructions and disposition.
[2017-07-06 20:16] LABS: BASO # 0.1 K/uL (0.0-0.2); BASO % 0.8 % (0.0-2.0); EOS # 0.3 K/uL (0.0-0.7); EOS % 4.7 % (0.0-4.0); HEMOGLOBIN 13.3 g/dL (12.0-18.0); LYMPH # 1.9 K/uL (1.0-4.3); LYMPH % 27.4 % (20.0-40.0); MEAN CELL VOLUME 87.5 fL (80.0-94.0); MEAN CORPUSCULAR HEMOGLOBIN 30.3 pg (27.0-31.0); MEAN CORPUSCULAR HGB CONC 34.6 g/dL (33.0-37.0); MEAN PLATELET VOLUME 8.6 fL (7.2-11.7); MONO # 0.6 K/uL (0.0-0.8); MONO % 8.2 % (0.0-10.0); NEUT # 4.1 K/uL (1.8-7.0); NEUT % 58.9 % (50.0-75.0); RBC 4.4 Mil/uL (4.40-5.90); RED CELL DISTRIBUTION WIDTH 13.7 % (11.5-14.5); WHITE BLOOD COUNT 6.9 K/uL (4.8-10.8)
[2017-07-06 20:22] LABS: URINE BILIRUBIN NEGATIVE (NEGATIVE); URINE BLOOD NEGATIVE (NEGATIVE); URINE CLARITY Clear (Clear); URINE COLOR Yellow (YELLOW); URINE GLUCOSE (UA) NORMAL (Normal); URINE LEUKOCYTE ESTERASE NEG Leu/uL (Negative); URINE PROTEIN NEGATIVE (NEGATIVE); URINE UROBILINOGEN NORMAL mg/dL (0.2-1.0)
[2017-07-06 20:29] LABS: ALB/GLOB RATIO 1.2 (1.0-2.1); ALBUMIN 3.5 g/dL (3.5-5.0); ALT/SGPT 19 U/L (21-72); AST/SGOT 19 U/L (17-59); BLOOD UREA NITROGEN 19 mg/dL (9-20); CALCIUM 8.5 mg/dl (8.6-10.4); GFR AFRICAN-AMERICAN > 60; GFR NON-AFRICAN AMERICAN > 60; LIPASE 78 U/L (23-300)
[2017-07-06 21:01] VITALS: BP 166/83; PULSE 60; RESP 18; TEMP 97.8
[2017-07-07 04:29] VITALS: O2SAT 97
== END 2017-07-06 21:01 | disposition home or self-care (01) ==
LOC: C.ER 19:17
DX: K64.4 Residual hemorrhoidal skin tags (principal); Z86.711 Personal history of pulmonary embolism; Z86.718 Personal history of other venous thrombosis and embolism